=== PATIENT | male | born 1945 | race Caucasian/White ===

== ENCOUNTER → 2023-10-31 10:39 | Outpatient (REF) | payer OTHER, SELFPAY | LOC: RCS 10:39 | PROVIDERS: ATTENDING PHYSICIAN Internal Medicine; FAMILY PHYSICIAN Family Medicine | DX: Z01.810 Encounter for preprocedural cardiovascular examination (principal) | CPT/HCPCS: 93005 ==

== ENCOUNTER 2023-11-02 11:56 | Emergency (ER) | payer OTHER, SELFPAY ==
[2023-11-02 12:03] VITALS: BP 143/83
[2023-11-02 12:25] LABS: % Basophils 0.5 % (0-2); % Eosinophils 3.3 % (0-6); % Immature Granulocytes 0.3 % (0-0.5); % Lymphocytes 14.4 % (20.5-51.1); % Monocytes 10.5 % (1.7-9.3); Absolute Basophils 0.1 10^3/uL (0-0.2); Absolute Eosinophils 0.4 10^3/uL (0-0.7); Absolute Lymphocytes 1.7 10^3/uL (1.2-3.4); Absolute Monocytes 1.2 10^3/uL (0.1-0.6); Absolute Neutrophils 8.4 10^3/uL (1.4-6.5); Hematocrit 28.8 % (39.0-52.0); Hemoglobin 9.4 g/dL (13.0-18.0); Mean Corp Hgb Conc. 32.6 g/dL (33.0-37.0); Mean Corpuscular Hgb 28.9 pg (27.0-31.0); Mean Corpuscular Volume 88.6 fL (80.0-94.0); Mean Platelet Volume 9.7 fL (7.4-10.4); Nucleated Red Blood Cells % 0 % (-); Platelet Count 364 10^3/uL (130-400); Red Blood Cell Count 3.25 10^6/uL (4.70-6.10); Red Cell Dist. Width 12.9 % (11.5-14.5); White Blood Cell Count 11.8 10^3/uL (4.8-10.8)
[2023-11-02 12:34] LABS: INR 1.14; PT 14.5 Sec (11.4-14.6)
[2023-11-02 12:35] LABS: APTT 32.4 Sec (23.4-35.0)
[2023-11-02 12:45] LABS: ALT (SGPT) 15 U/L (0-50); AST (SGOT) 21 U/L (17-59); Albumin 3.5 g/dl (3.5-5.0); Alkaline Phosphatase 128 U/L (38-126); Blood Urea Nitrogen 15 mg/dl (9-20); Calcium 9.2 mg/dl (8.4-10.2); Chloride 101 mmol/L (98-107); Glucose 113 mg/dl (70-99); Potassium 4.5 mmol/L (3.5-5.1); Sodium 135 mmol/L (135-145); Total Bilirubin 0.3 mg/dl (0.2-1.3); eGFR > 60.00
[2023-11-02 12:48] LABS: Carbon Dioxide 29 mmol/L (22-30)
--- NOTE | 2023-11-02 13:11 | ED.GENMED ---
History of Present Illness
General
Chief Complaint: Abnormal Lab Value
Source: patient
Exam Limitations: none
Time Seen by Provider: 11/02/23 13:03
Travel History
Have you had any contact with someone who has COVID-19?: No
Do you have any symptoms of coronavirus? Fever > 100 degrees, chills, cough, shortness of breath, sore throat, loss of taste or smell, muscle aches, or headache?: No
History of Present Illness
History of Present Illness:
See MDM
Past History
Past History
ED Past Medical History: None and HTN
ED Past Surgical History: None
Social History
Tobacco: Non-smoker
Alcohol: None
Personal:
Phy Exam
Physical Exam
Physical Exam:
See MDM
Course
Orders/Labs/Results
Orders:
Orders
11/02/23 12:18
Complete Blood Count/With Diff Urgent
Comprehensive Metabolic Panel Urgent
PT/INR [Prothrombin Time] Urgent
PTT Urgent
11/02/23 13:10
Electrocardiogram (*1) Urgent
Reason for Study: Shortness of Breath
CT Chest Pe Study Urgent
Comment:
Reason For Exam: SOB with exertion
EKG- Treatment ONCE
11/02/23 13:27
NT-proBNP Urgent
Troponin I Urgent
Abnormal Lab Results
11/02/23
12:18
WBC 11.8 H 10^3/uL
(4.8-10.8)
RBC 3.25 L 10^6/uL
(4.70-6.10)
Hgb 9.4 L g/dL
(13.0-18.0)
Hct 28.8 L %
(39.0-52.0)
MCHC 32.6 L g/dL
(33.0-37.0)
Absolute Neuts (auto) 8.4 H 10^3/uL
(1.4-6.5)
Absolute Monos (auto) 1.2 H 10^3/uL
(0.1-0.6)
Lymphocytes % 14.4 L %
(20.5-51.1)
Monocytes % 10.5 H %
(1.7-9.3)
Glucose 113 H mg/dl
(70-99)
Alkaline Phosphatase 128 H U/L
(38-126)
11/02/23 12:18
11/02/23 12:18
Vital Signs
Initial and Last Documented VS:
Initial Vital Signs
Temp Pulse Resp BP Pulse Ox
98.0 F 88 20 143/83 98
11/02/23 12:03 11/02/23 12:03 11/02/23 12:03 11/02/23 12:03 11/02/23 12:03
Last Documented Vital Signs
Temp Pulse Resp BP Pulse Ox
98.0 F 88 20 143/83 98
11/02/23 12:03 11/02/23 12:03 11/02/23 12:03 11/02/23 12:03 11/02/23 12:03
MDM/Problems Addressed
Differential Diagnosis Includes:
HPI and MDM Narrative:
78-year-old male presenting for evaluation of shortness of breath. Patient states outpatient blood work showed an elevated D-dimer. He was sent in to rule out PE. Patient states he gets short of breath when he mows the lawn outside. He denies
chest pain. At the time of my evaluation, blood work has returned. I discussed evidence of anemia. He denies black or red stools.
Given his shortness of breath with outpatient elevated D-dimer, will obtain CT to rule out PE. Will obtain EKG and troponin and BNP
Physical exam
General: Well appearing and non-toxic
HEENT: protecting airway
Neck: appears supple
CV: No evidence of cyanosis. Regular rate and rhythm
Resp: No accessory muscle use. Lungs clear
Abd: Non-distended
Extremities: No deformities
Neuro: alert
Psych: Normal affect
Skin: Intact
Problems Addressed including Acute and Chronic Conditions affecting care:
1. Shortness of breath
Acuity: acute
Prognosis: stable
Details: Given the elevated D-dimer as an outpatient, will obtain CT rule out PE
2. Anemia
Acuity: acute
Prognosis: stable
Details: He denies black or red stools. Given the normal MCV, we discussed possible iron deficiency. Discussed having this evaluated by PCP
Updates
CT negative for PE. There is concern for metastatic disease. I did update the patient on the CT concern and he was given a printout of the CT. Patient states he has bronchoscopy soon. It appears that his outpatient team are working this up.
Patient acknowledges my concern
Differential Diagnosis (but not limited to): Pulmonary embolism, ACS, symptomatic anemia
Testing considered: Repeating D-dimer
Drug therapy (if applicable): OTC meds, please see d/c instruction regarding Rx drugs
Amount and/or Complexity of Data Reviewed
Clinical info obtained from: Patient
External data reviewed: N/A
Labs I independently reviewed (but not limited to): Anemia with normal MCV
Radiology: the CT scan was personally and independently reviewed. In addition, official CT report reviewed.
Pulse Ox: not hypoxic
EKG independently reviewed: sinus rhythm, right axis, no STEMI
Customer Care Representative: N/A
Critical Care: N/A
Risk of Complication:
Social Determinants of health: Good social support
Discussed with other providers: N/A
Escalation of Care includes Admit/Obs: After being observed in the Emergency Department, pt stable for discharge.
Occasional wrong word or 'sound a like' substitutions may have occurred due to the inherent limitations of voice recognition software. Read the chart carefully and recognize, using context, where substitutions have occurred.
*Critical Care Note
Total Time (30-74mins, 75-104mins- exclusive of procedures): Not Applicable
ED Attending Note
-
Portions of this chart may have been created with voice recognition software.� Occasional wrong word or��sound alike� substitutions may have occurred due to the inherent limitations of voice recognition software.
Discharge Plan
Departure
Patient Disposition: Home (Routine Discharge)
Date of Disposition: 11/02/23
Time of Disposition: 15:50
Patient with high blood pressure during this ER visit?: Yes
Discharge Problem:
Acute dyspnea
Instructions: BLOOD PRESSURE
Prescriptions:
No Action
atorvastatin 20 mg Tablet
20 mg PO DAILY
ropinirole 0.5 mg Tablet
0.5 mg PO HS
valsartan 320 mg Tablet
320 mg PO HS
fluticasone propion-salmeterol [Wixela Inhub] 500-50 mcg/dose Blister With Device
1 inh INHALATION R BID
Centrum Silver Tablet
1 tab PO DAILY
PreserVision AREDS 4,296 mcg-226 mg-90 mg Capsule
1 cap PO BID
Referrals:
Brian White MD [Family Provider] -
Activity Restrictions/Additional Instructions:
Please return for any worsening symptoms.
You may return at any time if you have further concerns.
Please follow up with your doctor at the first available appointment, preferably this week.
Thank you for choosing [facility].
Interventions
Interventions:
*ED COVID-19 Vaccine History Last Done: 11/02/23 12:07
Discharge Date and Time
Print Language: ICELANDIC
[2023-11-02 14:00] VITALS: BP 132/88
[2023-11-02 14:02] LABS: NT-proBNP 281 pg/ml; Troponin I < 0.012 ng/ml
[2023-11-02 16:35] VITALS: BP 132/76
== END 2023-11-02 16:36 | disposition home or self-care (01) ==
LOC: EMR 11:56
PROVIDERS: Emergency Medicine; EMERGENCY PHYSICIAN Student in an Organized Health Care Education/Training Program; FAMILY PHYSICIAN Family Medicine
DX: D64.9 Anemia, unspecified (principal); I10 Essential (primary) hypertension; R79.89 Other specified abnormal findings of blood chemistry; R91.8 Other nonspecific abnormal finding of lung field
CPT/HCPCS: 99285; 71275; 80053; 83880; 84484; 85025; 85610; 85730; 93005; Q9967

== ENCOUNTER 2023-11-05 06:30 | Day surgery (SDC) | payer OTHER, SELFPAY ==
[2023-11-05] VITALS (9 sets, daily range): BP systolic 95–137; BP diastolic 59–87; BMI 24.4
== END 2023-11-05 16:54 | disposition home or self-care (01) ==
LOC: SDS 06:30
PROVIDERS: ATTENDING PHYSICIAN Internal Medicine Critical Care Medicine
DX: R91.8 Other nonspecific abnormal finding of lung field (principal); R59.0 Localized enlarged lymph nodes; C34.2 Malignant neoplasm of middle lobe, bronchus or lung; C77.9 Secondary and unspecified malignant neoplasm of lymph node, unspecified
CPT/HCPCS: 31629; 31628; 31645; 31624; 31623; 31654; 88173; 88305; 71045; 76000; 87015; 87070; 87102; 87106; 87116; 87205; 88112; 88333; 88334; 88341; 88342

== ENCOUNTER → 2023-11-14 08:31 | Outpatient (REF) | payer OTHER, SELFPAY | LOC: PET 08:31 | PROVIDERS: ATTENDING PHYSICIAN Internal Medicine | DX: R59.9 Enlarged lymph nodes, unspecified (principal) | CPT/HCPCS: 78815; A9552 ==

== ENCOUNTER → 2023-11-27 09:18 | Outpatient (REF) | payer OTHER, SELFPAY | LOC: MRI 3T 09:18 | PROVIDERS: ATTENDING PHYSICIAN Internal Medicine Hematology & Oncology; FAMILY PHYSICIAN Family Medicine | DX: C34.2 Malignant neoplasm of middle lobe, bronchus or lung (principal); C79.89 Secondary malignant neoplasm of other specified sites | CPT/HCPCS: 70553; A9575 ==

== ENCOUNTER → 2023-12-06 07:07 | Outpatient (REF) | payer OTHER, SELFPAY ==
[2023-12-06 07:45] VITALS: BP 143/69; BP_SYST 71
[2023-12-06 09:17] VITALS: BP 132/82; BP_SYST 79
[2023-12-06 09:46] VITALS: BP 134/72
== END ==
LOC: RADI 07:07
PROVIDERS: ATTENDING PHYSICIAN Internal Medicine Hematology & Oncology; FAMILY PHYSICIAN Family Medicine
DX: C79.72 Secondary malignant neoplasm of left adrenal gland (principal); C34.2 Malignant neoplasm of middle lobe, bronchus or lung
CPT/HCPCS: 88305; 49180; 77012; 88333; 88341; 88342; 99152

== ENCOUNTER 2023-12-14 14:05 | Inpatient (IN) | payer OTHER, SELFPAY ==
[2023-12-14] VITALS (16 sets, daily range): BP systolic 127–191; BP diastolic 68–96; BMI 23.1; BMI 23.5
--- NOTE | 2023-12-14 11:12 | ED.GENMED ---
History of Present Illness
General
Chief Complaint: Abnormal Lab Value
Time Seen by Provider: 12/14/23 11:11
Travel History
Have you had any contact with someone who has COVID-19?: No
Do you have any symptoms of coronavirus? Fever > 100 degrees, chills, cough, shortness of breath, sore throat, loss of taste or smell, muscle aches, or headache?: No
History of Present Illness
History of Present Illness:
HPI: The patient was sent here for evaluation and blood transfusion given hemoglobin of 6.7 as an outpatient. The patient reports generalized weakness with some degree of shortness of breath over the last several weeks. He denies any rectal
bleeding. He has no pain.
EXAM:
GENERAL: Appears somewhat generally weak and debilitated
HEENT: Moist oral mucosa
CARDIOVASCULAR: No murmurs, normal heart rate, regular rhythm, No chest wall tenderness
PULMONARY: No respiratory distress, breath sounds are clear and equal
ABDOMEN: Soft with no peritoneal signs, no tenderness
NEUROLOGIC: Excellent strength all extremities, no coordination deficits
PSYCHIATRIC: Appropriate mental status, normal insight and judgement
EXTREMITIES: Nontender, no edema, moves all extremities equally
SKIN: Somewhat pale
TIME OF INITIAL ENCOUNTER: 11:15 AM
NUMBER AND COMPLEXITY OF PROBLEMS ADDRESSED AT THE ENCOUNTER
� Chronic conditions affecting care: Lung cancer
� Acute Exacerbation and/or Progression of Chronic Illness: This is an acute problem
� Differential Diagnosis includes: Iron deficiency anemia, GI bleed, anemia related to malignancy
AMOUNT AND/OR COMPLEXITY OF DATA TO BE REVIEWED AND ANALYZED
� I performed an independent evaluation of and my interpretation is:
EKG:
CT: As patient had a recent adrenal biopsy, with drop in hemoglobin, CT imaging was obtained to evaluate for retroperitoneal hemorrhage�I see no evidence for RP hemorrhage
X-rays:
Laboratory Studies: Hemoglobin 6.4, white count 12.4, iron low
Other:
� Review of other/old records: 1 month ago, the patient had a hemoglobin of 9.4, 11 years ago, the hemoglobin was 15.2
� Clinical information was obtained by an independent historian: None needed
� Prescriptions/Medications Considered but not given:
� Further testing considered but not performed:
RISK OF COMPLICATIONS AND/OR MORBIDITY OR MORTALITY OF PATIENT MANAGEMENT
� Social determinants of health affecting care: Lives at home
� Discussion with other providers: Hospitalist for admission; I spoke to Vilma Moss who also notes that the patient had a recent adrenal biopsy.
� Escalation of care including admission/observation vs risk of discharge considered: The patient has heme positive brown stool. He was not aware of any gross bleeding. Planning blood transfusion and admission to the hospital.
Past History
Past History
ED Past Medical History: None and HTN
ED Past Surgical History: None
Social History
Tobacco: Non-smoker
Alcohol: None
Personal:
Phy Exam
Physical Exam
Physical Exam:
See HPI
Course
Orders/Labs/Results
Orders:
Orders
12/14/23 11:25
Type+Screen Urgent
Complete Blood Count/With Diff Urgent
Comprehensive Metabolic Panel Urgent
Ferritin Urgent
Iron Urgent
TIBC [Total Iron Binding] Urgent
12/14/23 12:31
Add On- LAB Urgent
Tests Added?: cmp
Pantoprazole [Protonix IV] 80 mg IV NOW STA
12/14/23 12:32
* Blood Bank Products Urgent
Blood Bank Products: *Packed RBC Leuko(PRBC's)
Quantity: 2
Transfuse Today: Yes
Reason: Anemia
12/14/23 13:42
Admit/Transfer Patient As Directed
Co-Sign Provider:
Level of Care: Inpatient admission
Assign to:: Telemetry
Physician / Group: Kadeem
Diagnosis: Symptomatic anemia, GI bleed
Reason for Telemetry: Arrhythmia
Date to Stop Telemetry: 12/17/23
Time to Stop Telemetry: 11:00
Reason for Hospitalization: blood transfusion, GI bleed
Expected length of stay greater than two midnights?: Yes
ELOS- Estimated Length of Stay in days: 3
I certify the patient meets the requirements for IP care: Yes
12/14/23 13:45
Code Status As Directed
Resuscitation Status: Do not resuscitate
Reached after discussion with pt or family/Healthcare POA: Yes
12/14/23 13:46
DNR Bracelet Application ONCE
12/17/23 11:00
DC Protocol for Telemetry ONCE
Abnormal Lab Results
12/14/23
11:25
WBC 12.4 H 10^3/uL
(4.8-10.8)
RBC 2.40 L 10^6/uL
(4.70-6.10)
Hgb 6.4 L* g/dL
(13.0-18.0)
Hct 19.8 L* %
(39.0-52.0)
MCH 26.7 L pg
(27.0-31.0)
MCHC 32.3 L g/dL
(33.0-37.0)
RDW 14.9 H %
(11.5-14.5)
Plt Count 530 H 10^3/uL
(130-400)
Abs Immat Gran (auto) 0.1 H 10^3/uL
(0-0.05)
Absolute Neuts (auto) 10.5 H 10^3/uL
(1.4-6.5)
Absolute Lymphs (auto) 0.9 L 10^3/uL
(1.2-3.4)
Absolute Monos (auto) 0.9 H 10^3/uL
(0.1-0.6)
Neutrophils % 84.7 H %
(42.2-75.2)
Lymphocytes % 7.0 L %
(20.5-51.1)
Sodium 133 L mmol/L
(135-145)
BUN 21 H mg/dl
(9-20)
Glucose 119 H mg/dl
(70-99)
Iron 22 L ug/dl
(49-181)
TIBC 241 L ug/dl
(261-462)
% Saturation 9 L %
(20-50)
Alkaline Phosphatase 141 H U/L
(38-126)
Albumin 3.2 L g/dl
(3.5-5.0)
Crossmatch IS Only See Detail
12/14/23 11:25
12/14/23 11:25
Vital Signs
Initial and Last Documented VS:
Initial Vital Signs
Temp Pulse Resp BP Pulse Ox
98.1 F 84 22 160/82 100
12/14/23 10:52 12/14/23 10:52 12/14/23 10:52 12/14/23 10:52 12/14/23 10:52
Last Documented Vital Signs
Temp Pulse Resp BP Pulse Ox
98.0 F 74 20 154/86 96
12/14/23 15:09 12/14/23 15:09 12/14/23 15:09 12/14/23 15:09 12/14/23 14:30
*Critical Care Note
Total Time (30-74mins, 75-104mins- exclusive of procedures): Not Applicable
ED Attending Note
-
Portions of this chart may have been created with voice recognition software.� Occasional wrong word or��sound alike� substitutions may have occurred due to the inherent limitations of voice recognition software.
Discharge Plan
Departure
Patient Disposition: Admit
Date of Disposition: 12/14/23
Time of Disposition: 12:43
Presentation/result/management discussed w/ accepting MD/DO: Hospitalist
Discharge Problem:
Symptomatic anemia
Interventions
Interventions:
*Risk Screen - Suicide Last Done: 12/14/23 11:28
ED- Fall Risk Assessment Last Done: 12/14/23 11:28
*ED COVID-19 Vaccine History Last Done: 12/14/23 10:55
[2023-12-14 11:41] LABS: % Basophils 0.3 % (0-2); % Eosinophils 0.6 % (0-6); % Immature Granulocytes 0.4 % (0-0.5); % Neutrophils 84.7 % (42.2-75.2); Absolute Eosinophils 0.1 10^3/uL (0-0.7); Absolute Immature Granulocytes 0.1 10^3/uL (0-0.05); Absolute Lymphocytes 0.9 10^3/uL (1.2-3.4); Absolute Monocytes 0.9 10^3/uL (0.1-0.6); Absolute Neutrophils 10.5 10^3/uL (1.4-6.5); Mean Corp Hgb Conc. 32.3 g/dL (33.0-37.0); Mean Corpuscular Hgb 26.7 pg (27.0-31.0); Mean Corpuscular Volume 82.5 fL (80.0-94.0); Mean Platelet Volume 9.2 fL (7.4-10.4); Nucleated Red Blood Cells % 0 % (-); Platelet Count 530 10^3/uL (130-400); Red Cell Dist. Width 14.9 % (11.5-14.5); White Blood Cell Count 12.4 10^3/uL (4.8-10.8)
[2023-12-14 12:00] LABS: Hematocrit 19.8 % (39.0-52.0); Hemoglobin 6.4 g/dL (13.0-18.0)
[2023-12-14 12:01] LABS: Iron 22 ug/dl (49-181)
[2023-12-14 12:10] LABS: Percent Saturation 9 % (20-50); Total Iron Binding Capacity 241 ug/dl (261-462)
[2023-12-14] MEDS: PROTONIX IV 80 MG IV (12:57)
--- NOTE | 2023-12-14 13:50 | HPS.HSE ---
Addendum entered and electronically signed by Fito Quan DO 12/14/23 14:16:
Patient changed his mind and wants to be a full code. Order changed.
Original Note:
Family Physician
-
Family Physician: Brian White
Chief Complaint
-
Anemia
History of Present Illness
78-year-old male referred to the hospital for evaluation of anemia. Complaining of fatigue and sleeping a lot. Denies shortness of breath or dyspnea on exertion.
Limited historian.
Recent diagnosis of pulmonary adenocarcinoma. Has yet to start treatment. Followed by [facility].
Medical History
Past Medical History
Past Medical History: Reports Other
Additional Past Medical History:
Essential hypertension
COPD
GERD
Restless leg syndrome
Pulmonary adenocarcinoma
Left adrenal metastasis
Past Surgical History: Reports None
Social History
Tobacco: Former Smoker
Alcohol: None
Drug: None
Personal:
Living: With Family
Family History
Family History: Not pertinent
Allergies / Home Medications
Allergies reflects when Allergies were last updated in [facility].
Home Medications with original date entered in [facility]
Allergy/Medication List:
Allergies
Allergy/AdvReac Type Severity Reaction Status Date / Time
No Known Allergies Allergy Verified 12/14/23 10:57
Home Medications
atorvastatin 20 mg tablet 20 mg PO DAILY 11/02/23
ropinirole 0.5 mg tablet 0.5 mg PO DAILY@199911/02/23
valsartan 320 mg tablet 320 mg PO DAILY 11/02/23
acetaminophen 325 mg tablet (Tylenol) 650 mg PO Q4H PRN pain 11/05/23
benzonatate 200 mg capsule 200 mg PO BID PRN cough 12/06/23
oxycodone 5 mg tablet 5 mg PO BID PRN severe pain 12/06/23
albuterol sulfate 90 mcg/actuation aerosol inhaler 2 puff inhalation Q4HPRN PRN shortness of breath 12/14/23
dextromethorphan-guaifenesin 10 mg-100 mg/5 mL oral syrup 10 ml PO HS 12/14/23
fluticasone 500 mcg-salmeterol 50 mcg/dose blistr powdr for inhalation (Wixela Inhub) 1 ea inhalation BID 12/14/23
folic acid 1 mg tablet 1 mg PO DAILY 12/14/23
prochlorperazine maleate 10 mg tablet 10 mg PO Q6HPRN PRN nausea 12/14/23
vit C 250 mg-vit E 90 mg-zinc 40 mg-copper 1 [id number] capsule (PreserVision AREDS-2) 1 tab PO BID 12/14/23
Review of Systems
-
History Source: Patient
A 12 point ROS was completed and negative except as noted: Yes
Physical Exam
Vital Signs
Vital Signs
Temp Pulse Resp BP Pulse Ox
98.1 F 76 18 153/86 99
12/14/23 10:52 12/14/23 13:00 12/14/23 13:00 12/14/23 13:00 12/14/23 13:00
Physical Exam
General: Well Developed, Well Nourished, No Apparent Distress and Comfortable
HEENT: NormoCephalic, Anicteric and Moist mucous membranes
Respiratory: Clear
Cardiac: S1/S2 and Regular Rhythm
GI: Soft, Non Tender and Non Distended
Musculoskeletal: No Clubbing, No Cyanosis and No Edema
Skin: Warm and Dry
Neuro: AO x 3
Hematologic/Lymphatic: No Lymphadenopathy
Psych: Calm
Laboratory Results
-
12/14/23 11:25
Impression/Plan
-
Symptomatic anemia -acute to subacute blood loss anemia likely source. Hemoglobin 6.4. MCV normal. 2 units of blood for transfusion ordered by emergency room. Hemodynamically stable. Admit to telemetry.
Ferritin normal, serum iron and TIBC low. Check B12, folic acid, reticulocyte count.
GI bleed -likely subacute. Heme positive stool noted in the emergency room. Consult GI. Continue IV Protonix drip for now. Patient denies history of NSAIDs. Patient has never had EGD or colonoscopy. He is very concerned about post colonoscopy
bleeding given his experiences with friends and relatives. I tried to explain to him the low risk of bleeding involved and the safety. So far he is only done Cologuard screenings, last screen was 2 years ago.
Pulmonary adenocarcinoma -left adrenal metastasis noted. Scheduled for chemotherapy port insertion on Sunday. Has yet to start treatment.
Essential hypertension -resume valsartan.
COPD without exacerbation -stable. Continue inhalers.
Hyperlipidemia -on atorvastatin.
GERD
Restless leg syndrome
DNR -confirmed with patient.
[2023-12-14 13:59] LABS: ALT (SGPT) 14 U/L (0-50); AST (SGOT) 25 U/L (17-59); Albumin 3.2 g/dl (3.5-5.0); Alkaline Phosphatase 141 U/L (38-126); Blood Urea Nitrogen 21 mg/dl (9-20); Calcium 9.4 mg/dl (8.4-10.2); Carbon Dioxide 23 mmol/L (22-30); Chloride 102 mmol/L (98-107); Estimated Creatinine Clearance 68 ml/min; Glucose 119 mg/dl (70-99); Potassium 4.8 mmol/L (3.5-5.1); Sodium 133 mmol/L (135-145); Total Bilirubin 0.4 mg/dl (0.2-1.3); Total Protein 6.6 g/dl (6.3-8.2); eGFR > 60.00
--- NOTE | 2023-12-14 15:02 | CON.GI ---
Addendum entered and electronically signed by Daniel Chamorro MD 12/14/23 16:40:
Patient seen and examined, agree with nurse practitioner note. Patient presents with symptomatic anemia, with BUCIO and fatigue. He has recent diagnosis of metastatic lung cancer, and found to have hemoglobin 6.7 outpatient labs done 9 days ago
which was significantly lower than October. On presentation emergency room his hemoglobin was essentially stable at 6.4, and he does has dyspnea exertion and fatigue. He did have some nausea after taking some medication this morning but usually has
no GI symptoms, and denies any melena or hematochezia, change in bowel habits or abdominal pain. He had a biopsy of a very large adrenal met that was around 9 cm on PET/CT. His PET/CT done this month showed no GI pathology. He never had a
colonoscopy has had -2 Cologuard's, last about 2 years ago. Currently is feeling okay, improved after transfusion. On exam he has no significant abdominal tenderness. His iron studies are mixed, with low percent iron saturation. The etiology of
his drop is unclear, could have had some bleeding within the large adrenal mass which is now about a centimeter larger. We discussed the role of endoscopic evaluation at length, including therapeutically for controlling active bleeding and
diagnostically to look for GI pathology, especially malignancy. We discussed that since he has no active bleeding, no gross bleeding, brown stool with stable hemoglobin over the past 7 days, and recent PET/CT without evidence of GI malignancy, will
hold on endoscopic evaluation for now. I discussed also with Dr. Salter from oncology who concurs. It has been observed overnight to get watch for signs of active bleeding, see if he responds to transfusion, though if stable and no gross
bleeding again would hold on endoscopic evaluation and continue supportive care.
Original Note:
Consultation
-
Date/Time Consultation Requested: 12/14/23 1400
Date/Time Consultation Performed: 12/14/23 1400
Requesting Provider: Dr. Quan
Performing Provider: Dr. Chamorro/PATRICIA Giordano
Reason for Consultation: OB positive stool, anemia
Medical History
Chief Complaint / HPI
Chief Complaint: fatigue
History of Present Illness:
78-year-old male with past medical history of chronic cough, COPD, hypertension, GERD, restless leg syndrome with recent diagnosis of metastatic adenocarcinoma of the lung status post bronchoscopy 11/05/2023 as well as recent left adrenal mass biopsy
on 12/06/2023 who presents to the emergency room with progressive fatigue and shortness of breath. The patient was called and told he had a low hemoglobin and was advised to come to the emergency department. His stool was noted to be brown but OB
positive. We are asked to evaluate for the same. Patient's last hemoglobin in October was 9.4 this was apparently repeated as an outpatient and was 6.7 nine days ago. The patient was notified of this today. When he presented to the emergency room
his hemoglobin is 6.4. He does have a history of gastroesophageal reflux disease and was on omeprazole approximately a few years ago however approximately 1 year ago he states that his symptoms resolved on their own and he no longer needed PPI
therapy. He states on rare occasion he will have an instance of reflux and this will go away with Tums. The patient states that over the past month he has lost approximately 12 pounds. This is despite 'eating like a horse'. He did get started on
oxycodone for left shoulder pain within the past week. He did develop nausea and was prescribed prochlorperazine that he took his first pill this morning. He did have 1 episode of vomiting this morning that was clear. No signs of coffee-ground or
blood. He states he has had Cologuard's performed in the past his last one was 2 years ago which was normal and the other was 2 years prior to that that was also normal. He has no family history of gastrointestinal malignancy that he is aware of.
He has a sister that of cancer of an unknown type. The patient has never had an endoscopy or colonoscopy before. He quit smoking approximately 5 years ago. He quit drinking alcohol approximately 10 years ago. Prior to that he would
drink approximately 2-3 beers a week. He does not use any NSAIDs or aspirin. He denies any fevers, chills, melena, hematochezia, dysphagia or odynophagia. No early satiety, thinning of the stools change or change in stool caliber. Currently WBC
count 12.4, hemoglobin 6.4, hematocrit 19.8, MCV 82.5, MCH 26.7, platelets 530, sodium 133, potassium 4.8, chloride 102, CO2 23, BUN 21, creatinine 0.9, glucose 119, iron 22, TIBC 241, percent saturation 9, ferritin 382, total bilirubin 0.4, AST 25,
ALT 14, alk phos 141, albumin 3.2.
Past Medical History
Past Medical History: Cancer (Metastatic adenocarcinoma lung), COPD, GERD, HTN, Hypercholesterolemia and Other (RLS)
Past Surgical History: Other (Bronchoscopy 11/05/2023, left adrenal mass biopsy 12/06/2023, left hernia)
Social History
Tobacco: Former Smoker (Quit 5 years ago)
Alcohol: Other (None in 10 years, prior 2-3 beers a week)
Drug: None
Personal:
Living: With Family
Employment: Retired
Family History
Family History: Other (No family history of gastrointestinal malignancy or IBD.)
Allergies / Home Medications
Allergy/AdvReac Type Severity Reaction Status Date / Time
No Known Allergies Allergy Verified 12/14/23 10:57
�Medication �Instructions �Recorded
atorvastatin 20 mg tablet 20 mg PO DAILY 11/02/23
ropinirole 0.5 mg tablet 0.5 mg PO DAILY@199911/02/23
valsartan 320 mg tablet 320 mg PO DAILY 11/02/23
acetaminophen 325 mg tablet 650 mg PO Q4H PRN pain 11/05/23
(Tylenol)
benzonatate 200 mg capsule 200 mg PO BID PRN cough 12/06/23
oxycodone 5 mg tablet 5 mg PO BID PRN severe pain 12/06/23
albuterol sulfate 90 mcg/actuation 2 puff inhalation Q4HPRN PRN 12/14/23
aerosol inhaler shortness of breath
dextromethorphan-guaifenesin 10 10 ml PO HS 12/14/23
mg-100 mg/5 mL oral syrup
fluticasone 500 mcg-salmeterol 50 1 ea inhalation BID 12/14/23
mcg/dose blistr powdr for
inhalation (Wixela Inhub)
folic acid 1 mg tablet 1 mg PO DAILY 12/14/23
prochlorperazine maleate 10 mg 10 mg PO Q6HPRN PRN nausea 12/14/23
tablet
vit C 250 mg-vit E 90 mg-zinc 40 1 tab PO BID 12/14/23
mg-copper 1 [id number]
capsule (PreserVision AREDS-2)
Review of Systems
-
All other systems: A 12 pt ROS was Negative except as stated above in HPI
Vital Signs
Temp Pulse Resp BP Pulse Ox
98.1 F 76 25 167/81 96
12/14/23 14:27 12/14/23 14:30 12/14/23 14:30 12/14/23 14:30 12/14/23 14:30
Physical Exam
Exam
General: No Apparent Distress
HEENT: Anicteric and Other (Rhinophyma)
Respiratory: Clear and Other (Intermittent cough)
Cardiac: Regular Rhythm
GI: Soft, Non Tender, Non Distended and Normal Bowel Sounds
Rectal: Brown (Occult blood positive stool per ER)
Musculoskeletal: No Edema
Skin: Warm and Dry
Neuro: AO x 3
Psych: Calm
Results
WBC 12.4 10^3/uL (4.8-10.8) H 12/14/23 11:25
Hgb 6.4 g/dL (13.0-18.0) L* 12/14/23 11:25
Hct 19.8 % (39.0-52.0) L* 12/14/23 11:25
MCV 82.5 fL (80.0-94.0) 12/14/23 11:25
Plt Count 530 10^3/uL (130-400) H 12/14/23 11:25
Absolute Neuts (auto) 10.5 10^3/uL (1.4-6.5) H 12/14/23 11:25
Sodium 133 mmol/L (135-145) L 12/14/23 11:25
Potassium 4.8 mmol/L (3.5-5.1) 12/14/23 11:25
Chloride 102 mmol/L (98-107) 12/14/23 11:25
Carbon Dioxide 23 mmol/L (22-30) 12/14/23 11:25
BUN 21 mg/dl (9-20) H 12/14/23 11:25
Creatinine 0.9 mg/dL (0.7-1.3) 12/14/23 11:25
Calcium 9.4 mg/dl (8.4-10.2) 12/14/23 11:25
Total Bilirubin 0.4 mg/dl (0.2-1.3) 12/14/23 11:25
AST 25 U/L (17-59) 12/14/23 11:25
ALT 14 U/L (0-50) 12/14/23 11:25
Alkaline Phosphatase 141 U/L (38-126) H 12/14/23 11:25
Diagnostic Image Results:
12/06/2023 CT-guided left adrenal mass biopsy:IMPRESSION: Successful CT guided left adrenal mass biopsy
PET, tumor imaging skull�mid thigh 11/14/2023:
IMPRESSION:
1. LARGE 8.2 cm RIGHT MIDDLE LOBE LUNG CANCER extending posteriorly into the right hilum and superiorly through the right minor fissure into the right upper lobe.
2. Large amount of metastatic right hilar and mediastinal lymphadenopathy.
3. LARGE 9.2 cm LEFT ADRENAL METASTASIS.
CT chest 11/02/2023:
IMPRESSION:
1. Evaluation of subsegmental pulmonary distribution limited as above. No pulmonary embolus is identified.
2. Large malignant mass lesion within the right middle lobe as seen on recent prior exam. Associated right hilar lymphadenopathy and mediastinal lymphadenopathy.
3. Large left upper quadrant mass lesion, most likely adrenal metastasis.
4. Hepatic cysts and indeterminate low-attenuation hepatic lesions. This could be further evaluated with follow-up abdominal CT or MRI with contrast.
Prior GI Procedures:
EGD: Never had
Colonoscopy: Never had.
Per patient has had 2 prior negative Cologuard. Last one 2 years ago.
Assessment / Plan
-
78-year-old male with past medical history of chronic cough, COPD, hypertension, GERD, restless leg syndrome with recent diagnosis of metastatic adenocarcinoma of the lung status post bronchoscopy 11/05/2023 as well as recent left adrenal mass biopsy
on 12/06/2023 who presents to the emergency room with progressive fatigue and shortness of breath. The patient was called and told he had a low hemoglobin and was advised to come to the emergency department. His stool was noted to be brown but OB
positive. We are asked to evaluate for the same. Patient's last hemoglobin in October was 9.4 this was apparently repeated as an outpatient and was 6.7 nine days ago. The patient was notified of this today. When he presented to the emergency room
his hemoglobin is 6.4. He did have an episode of nausea and vomiting this morning that was clear. He was started on oxycodone in the past few days for of left shoulder pain. He also was given prochlorperazine and he took 1 pill of this. He has
lost approximately 12 pounds within the past month despite having a hearty appetite. He has not started any chemotherapy and is yet to have his port placed. The patient has never had an endoscopy or colonoscopy before. He has had 2 negative
Cologuard in the past with the last one being 2 years ago. He is currently receiving his first unit of packed red blood cells.
Impression:
Symptomatic anemia-> hemoglobin was 6.7 as outpatient nine days ago, now 6.4. Prior was 9.4 on 11/02/2023.
OB positive brown stool
Metastatic adenocarcinoma lung-> status post bronchoscopy 11/05/2023
Left adrenal mass s/p biopsy 12/06/2023
Single episode nausea and vomiting this a.m.-> clear fluid, however with slightly elevated BUN (21)
Plan:
-Continue Protonix
-Transfuse as ordered and trend CBC after
-Patient confirmed with me that he wishes to be full code.RN is notifying IM Attending.
-Discussed with ER physician, recent left adrenal biopsy he is ordering CT of abdomen and pelvis. Await those results.
-Eventual endoscopy/colonoscopy. Patient has port insertion planned for Sunday, yet to start chemotherapy.
-Okay for solid diet today for now, patient is hungry.
-Further recommendations to be forthcoming.
Data Reviewed
-
Radiology: Report Reviewed by me
CT Scan: Report Reviewed by me
Old Records: Reviewed
-
-
Thank you for consultation and allowing me to participate in the patient's care. Please call the [facility] GI physician during the after hours with any questions or concerns.
[2023-12-14] MEDS: PROTONIX 100 IV (16:35)
[2023-12-14] MEDS: DIOVAN 320 MG PO (16:56)
[2023-12-14] MEDS: ProAIR HFA INHALER 2 PUFF INH (17:09)
[2023-12-14] MEDS: OCUVITE SOFTGEL 1 CAP PO (20:06)
[2023-12-14] MEDS: REQUIP 0.5 MG PO (20:06)
[2023-12-14] MEDS: ADVAIR HFA 230/21 MCG INHALER 2 PUFF INH (20:32)
[2023-12-14] MEDS: ROBITUSSIN DM 10 ML PO (21:19)
[2023-12-15 00:28] LABS: Hematocrit 22.7 % (39.0-52.0); Hemoglobin 7.6 g/dL (13.0-18.0)
[2023-12-15] MEDS: PROTONIX 100 IV (01:46)
[2023-12-15] MEDS: ROXICODONE 5 MG PO ×3 (01:47→15:42)
[2023-12-15 04:15] VITALS: BP 152/80
[2023-12-15 07:15] LABS: % Basophils 0.3 % (0-2); % Eosinophils 0.7 % (0-6); % Immature Granulocytes 1.3 % (0-0.5); % Lymphocytes 13.3 % (20.5-51.1); % Monocytes 10.9 % (1.7-9.3); % Neutrophils 73.5 % (42.2-75.2); Absolute Eosinophils 0.1 10^3/uL (0-0.7); Absolute Immature Granulocytes 0.2 10^3/uL (0-0.05); Absolute Lymphocytes 1.6 10^3/uL (1.2-3.4); Absolute Monocytes 1.3 10^3/uL (0.1-0.6); Absolute Neutrophils 8.7 10^3/uL (1.4-6.5); Hemoglobin 7.6 g/dL (13.0-18.0); Mean Corpuscular Hgb 27.2 pg (27.0-31.0); Mean Corpuscular Volume 82.4 fL (80.0-94.0); Mean Platelet Volume 9.6 fL (7.4-10.4); Nucleated Red Blood Cells % 0 % (-); Platelet Count 479 10^3/uL (130-400); Red Blood Cell Count 2.79 10^6/uL (4.70-6.10); Red Cell Dist. Width 14.7 % (11.5-14.5); White Blood Cell Count 11.9 10^3/uL (4.8-10.8)
[2023-12-15] MEDS: ADVAIR HFA 230/21 MCG INHALER 2 PUFF INH (07:24)
[2023-12-15 08:10] VITALS: BP 150/76
[2023-12-15] MEDS: DIOVAN 320 MG PO (08:21)
[2023-12-15] MEDS: OCUVITE SOFTGEL 1 CAP PO (08:21)
[2023-12-15] MEDS: FOLVITE 1 MG PO (08:21)
[2023-12-15] MEDS: LIPITOR 20 MG PO (08:21)
--- NOTE | 2023-12-15 09:57 | W.PN.GI.CBS2 ---
Today's Communication / Plan
-
Please see assessment and plan for details.
Assessment / Plan
-
1. Anemia: Multifactorial, possibly some drop after his biopsy, with heme positive stool that was brown, no gross bleeding, PET/CT negative for GI malignancies. Again, had discussion with him in oncology yesterday, will hold on endoscopy and
colonoscopy for now as would not be helpful diagnostically or therapeutically in the absence of significant gross bleeding and negative PET/CT. We will sign off for now, please go back with any further questions.
Subjective
Subjective
Date of Service: December 15, 2023
Patient doing well overall, no bowel movements, tolerating diet without difficulty, no fever or chills. Has more energy after blood transfusion. Hemoglobin has remained stable overnight.
Objective
Data Reviewed
Laboratory Data:
Laboratory Results
12/15/23 06:40
12/14/23 11:25
Laboratory Results
Total Bilirubin 0.4 mg/dl (0.2-1.3) 12/14/23 11:25
AST 25 U/L (17-59) 12/14/23 11:25
ALT 14 U/L (0-50) 12/14/23 11:25
Alkaline Phosphatase 141 U/L (38-126) H 12/14/23 11:25
Vital Signs and I&O:
Vital Signs
Temp Pulse Resp BP Pulse Ox
98.0 F 82 16 150/76 95
12/15/23 08:10 12/15/23 08:10 12/15/23 08:10 12/15/23 08:21 12/15/23 08:10
I&O
12/14/23 12/15/23 12/16/23
06:59 06:59 06:59
Intake Total 980 / 980
Output Total 225 / 225
Balance 755 / 755
Physical Exam
Physical Exam
General: NAD
Abdomen: normal bowel sounds, soft, no tenderness, no masses or bruits, no ascites
--- NOTE | 2023-12-15 10:14 | W.PN.HOSP.TC ---
Today's Communication/Plan
-
Transfuse
Discharge
Assessment / Plan
Assessment / Plan
Gen-AAOx3, NAD
HEENT-NC, AT, anicteric, clear oral mm
Neck-supple
CV-reg, no M, +S1/S2
Lungs-clear B/L
Abd-soft, NT, ND
Ext-no edema
Musculoskeletal-no cyanosis, clubbing
Skin-warm and dry
Neuro-grossly non-focal
Psych-calm, cooperative
Symptomatic anemia -acute to subacute blood loss anemia likely source. GI service feels that the anemia is multifactorial etiology. CT abdomen and pelvis does not show any evidence of bleeding. Hemoglobin 6.4 on admission, 7.6 today after 2 units
transfused. Will transfuse 1 additional unit of blood, then discharge.
GI bleed -likely subacute. Heme positive stool noted in the emergency room. No melena or hematochezia. No bowel movement so far in the hospital. Appreciate GI input. Recommend conservative management. No plans for endoscopic evaluation while
in the hospital.
Hyponatremia -present on admission.
Pulmonary adenocarcinoma -left adrenal metastasis noted. Scheduled for chemotherapy port insertion on Sunday. Has yet to start treatment.
Essential hypertension -resume valsartan.
COPD without exacerbation -stable. Continue inhalers.
Hyperlipidemia -on atorvastatin.
GERD
Restless leg syndrome
Full code
Dispo -plan to discharge later today after transfusion. Follow-up with PCP and oncology.
35 minutes spent in discharge process.
Anticipated Discharge: Today
Subjective/Interval History
-
Date of Service: December 15, 2023
Patient seen and examined. No complaints.
Objective Data
-
Labs:
Laboratory Results
12/15/23 12/15/23
00:09 06:40
WBC 11.9 H
Hgb 7.6 L 7.6 L
Hct 22.7 L 23.0 L
Plt Count 479 H
Vital Signs:
Vital Signs
Temp Pulse Resp BP Pulse Ox
98.0 F 82 16 150/76 95
12/15/23 08:10 12/15/23 08:10 12/15/23 08:10 12/15/23 08:21 12/15/23 08:10
I&O
12/14/23 12/15/23 12/16/23
06:59 06:59 06:59
Intake Total 980 / 980
Output Total 225 / 225
Balance 755 / 755
Review of Systems
-
History Source: Patient
All other systems: Reviewed and negative
[2023-12-15 10:47] VITALS: BP 156/78
[2023-12-15 12:46] VITALS: BP 125/67
[2023-12-15 13:09] VITALS: BP 129/70
[2023-12-15 15:37] VITALS: BP 149/72
--- NOTE | 2023-12-15 16:51 | W.DS.TRANS ---
DC Summary - Administrative Underwriter
-
Discharge Instructions:
Discharge Diagnosis/Procedures Symptomatic anemia
Diet Regular
Activity As tolerated
Driving Restrictions As prior to admission
Bathing Restrictions None
Blood Work CBC in 1 week with your oncologist
Instructions:
Stand-Alone Forms:
Changes to Home Medications: No
Discharge Medications:
DC Medications w/original date entered in [email or web address]
atorvastatin 20 mg tablet 20 mg PO DAILY High Cholesterol 11/02/23
ropinirole 0.5 mg tablet 0.5 mg PO DAILY@1999 Restless Leg Syndrome 11/02/23
valsartan 320 mg tablet 320 mg PO DAILY Blood Pressure 11/02/23
acetaminophen 325 mg tablet (Tylenol) 650 mg PO Q4H PRN pain 11/05/23
benzonatate 200 mg capsule 200 mg PO BID PRN cough 12/06/23
oxycodone 5 mg tablet 5 mg PO BID PRN severe pain 12/06/23
albuterol sulfate 90 mcg/actuation aerosol inhaler 2 puff inhalation Q4HPRN PRN shortness of breath 12/14/23
dextromethorphan-guaifenesin 10 mg-100 mg/5 mL oral syrup 10 ml PO HS Cough 12/14/23
fluticasone 500 mcg-salmeterol 50 mcg/dose blistr powdr for inhalation (Wixela Inhub) 1 ea inhalation BID Lung/Breathing Issues 12/14/23
folic acid 1 mg tablet 1 mg PO DAILY Supplement 12/14/23
prochlorperazine maleate 10 mg tablet 10 mg PO Q6HPRN PRN nausea 12/14/23
vit C 250 mg-vit E 90 mg-zinc 40 mg-copper 1 [id number] capsule (PreserVision AREDS-2) 1 tab PO BID Supplement 12/14/23
Home Medication Changes
Pending Results: No
== END 2023-12-15 17:10 | disposition home or self-care (01) | DRG 378 ==
LOC: 4 WEST ACU 14:05
PROVIDERS: Nurse Practitioner Gerontology; ADMITTING PHYSICIAN Hospitalist; CONSULT PHYSICIAN Internal Medicine Gastroenterology; EMERGENCY PHYSICIAN Emergency Medicine; FAMILY PHYSICIAN Family Medicine
PROC: 30233N1 Transfusion of Nonautologous Red Blood Cells into Peripheral Vein, Percutaneous Approach (ICD-10-PCS; 2023-12-14)
DX: K92.2 Gastrointestinal hemorrhage, unspecified (principal); C79.72 Secondary malignant neoplasm of left adrenal gland; E87.1 Hypo-osmolality and hyponatremia; Z66 Do not resuscitate; Z87.891 Personal history of nicotine dependence; D50.0 Iron deficiency anemia secondary to blood loss (chronic); I10 Essential (primary) hypertension; J44.9 Chronic obstructive pulmonary disease, unspecified; K21.9 Gastro-esophageal reflux disease without esophagitis; G25.81 Restless legs syndrome; E78.00 Pure hypercholesterolemia, unspecified
CPT/HCPCS: 36430; 74177; 80053; 82728; 83540; 83550; 85014; 85018; 85025; 86850; 86900; 86901; 86920; 94640; 96374; 99285; P9016; Q9967

== ENCOUNTER 2023-12-17 10:15 | Emergency (ER) | payer OTHER, SELFPAY ==
[2023-12-17 10:26] VITALS: BP 157/91
[2023-12-17 16:00] VITALS: BP 172/92
--- NOTE | 2023-12-17 19:00 | ED.GENMED ---
History of Present Illness
General
Chief Complaint: Fatigue
Time Seen by Provider: 12/17/23 17:55
Travel History
Have you had any contact with someone who has COVID-19?: No
Do you have any symptoms of coronavirus? Fever > 100 degrees, chills, cough, shortness of breath, sore throat, loss of taste or smell, muscle aches, or headache?: No
History of Present Illness
History of Present Illness:
78-year-old male with history of lung CA and anemia presenting to the emergency department for weakness and dark stools. Patient reports symptoms for the past week. Notes that he was recently seen and evaluated on 12/13, admitted for symptomatic
anemia with hemoglobin of 6.4, improved to 7.6 after 3 units. At the time, was told that he did have some blood in his stool, was told to follow-up outpatient. Reports that he was discharged 3 days ago. He notes worsening weakness, as well as a
nonproductive cough, which has been ongoing for months. He feels that his stools have gotten darker in color. Denies any iron usage. Denies any chest pain or difficulty breathing. Reports that he was supposed to have a port placed today to
initiate chemotherapy, however canceled secondary to his symptoms. Denies additional acute medical
Past History
Past History
ED Past Medical History: None and HTN
ED Past Surgical History: None
Social History
Tobacco: Non-smoker
Alcohol: None
Personal:
Phy Exam
Physical Exam
Physical Exam:
GENERAL: Alert , in no apparent distress
EYE: pupils equal and reactive
NECK: Supple, no significant adenopathy.
ENT: o/p clr, mmm.
CARDIAC: Regular rate and rhythm .
LUNGS: Clear breath sounds bilaterally, no acute respiratory distress, no wheezes/rales/rhonchi
ABDOMEN: Soft, without focal tenderness, no r/g, no cvat
NEUROLOGICAL: Alert and oriented, no focal neuro deficits
SKIN: Warm and dry, skin intact.
: Hemoccult positive brown stool
MUSCULOSKELETAL: No edema, well perfused.
PSYCH: Normal and appropriate interaction.
Course
Orders/Labs/Results
Orders:
Orders
12/17/23 18:33
CR Chest - 2 Views Urgent
Comment:
Reason For Exam: cough
12/17/23 19:19
Type And Crossmatch Urgent
Complete Blood Count/With Diff Urgent
Comprehensive Metabolic Panel Urgent
Prothrombin Time Urgent
12/17/23 20:52
Doxycycline [Vibramycin] 100 mg PO NOW STA
Abnormal Lab Results
12/17/23
19:19
WBC 15.5 H 10^3/uL
(4.8-10.8)
RBC 3.56 L 10^6/uL
(4.70-6.10)
Hgb 9.8 L D g/dL
(13.0-18.0)
Hct 29.7 L %
(39.0-52.0)
RDW 15.6 H %
(11.5-14.5)
Plt Count 535 H 10^3/uL
(130-400)
Abs Immat Gran (auto) 0.1 H 10^3/uL
(0-0.05)
Absolute Neuts (auto) 12.1 H 10^3/uL
(1.4-6.5)
Absolute Monos (auto) 1.5 H 10^3/uL
(0.1-0.6)
Neutrophils % 78.3 H %
(42.2-75.2)
Lymphocytes % 10.3 L %
(20.5-51.1)
Monocytes % 9.5 H %
(1.7-9.3)
PT 15.4 H Sec
(11.4-14.6)
BUN 22 H mg/dl
(9-20)
Alkaline Phosphatase 167 H U/L
(38-126)
Albumin 3.4 L g/dl
(3.5-5.0)
12/17/23 19:19
12/17/23 19:19
Vital Signs
Initial and Last Documented VS:
Initial Vital Signs
Temp Pulse Resp BP Pulse Ox
98.5 F 100 14 157/91 96
12/17/23 10:26 12/17/23 10:26 12/17/23 10:26 12/17/23 10:26 12/17/23 10:26
Last Documented Vital Signs
Temp Pulse Resp BP Pulse Ox
97.2 F 98 18 164/89 95
12/17/23 16:00 12/17/23 19:54 12/17/23 19:54 12/17/23 19:54 12/17/23 19:54
MDM/Problems Addressed
MDM/Problems Addressed:
78-year-old male with history of lung cancer and anemia presenting for worsening weakness, status post admission for symptomatic anemia requiring transfusion. Vital signs significant for mild hypertension.
On exam, patient well-appearing, no acute distress. Benign cardiac and pulmonary exam. No tenderness to abdomen, soft nondistended. Patient however is Hemoccult positive. In review of EMR from recent admission on 12/13, Hemoccult positive at that
time as well. Patient had CT imaging without significant acute pathology, no evidence of hemorrhage. Patient had seen GI, advised follow-up outpatient. Given patient's symptoms with recent history of transfusion, concern for repeat symptomatic
anemia. Will obtain repeat laboratory analysis, coags, chest x-ray imaging given report of cough to evaluate for infectious pathology. Patient otherwise nontoxic, afebrile.
20:50 -patient's labs are reassuring, hemoglobin has improved, now 9.4. Mild leukocytosis. Chest x-ray shows possible right-sided pneumonia. In the setting of cough and leukocytosis, will start on antibiotics. Without concern for sepsis.
Patient in no respiratory distress, feel stable for discharge with oral antibiotics and outpatient follow-up. Advised following up with his doctor for port placement and initiation of chemotherapy. Also explained importance of GI follow-up for
persistent blood in stool. Strict return precautions communicated and patient verbalized understanding.
*Critical Care Note
Total Time (30-74mins, 75-104mins- exclusive of procedures): Not Applicable
ED Attending Note
-
Portions of this chart may have been created with voice recognition software.� Occasional wrong word or��sound alike� substitutions may have occurred due to the inherent limitations of voice recognition software.
Discharge Plan
Departure
Prescriptions:
No Action
acetaminophen [Tylenol] 325 mg Tablet
650 mg PO Q4H PRN (Reason: pain)
atorvastatin 20 mg Tablet
20 mg PO DAILY
ropinirole 0.5 mg Tablet
0.5 mg PO DAILY@1999
valsartan 320 mg Tablet
320 mg PO DAILY
benzonatate 200 mg Capsule
200 mg PO BID PRN (Reason: cough)
oxycodone 5 mg Tablet
5 mg PO BID PRN (Reason: severe pain)
prochlorperazine maleate 10 mg tablet
10 mg PO Q6HPRN PRN (Reason: nausea)
folic acid 1 mg tablet
1 mg PO DAILY
albuterol sulfate 90 mcg/actuation HFA aerosol inhaler
2 puff INHALATION Q4HPRN PRN (Reason: shortness of breath)
PreserVision AREDS-2 250-90-40-1 mg Capsule
1 tab PO BID
dextromethorphan-guaifenesin 10-100 mg/5 mL Syrup
10 ml PO HS
fluticasone propion-salmeterol [Wixela Inhub] 500-50 mcg/dose blister with device
1 ea INHALATION BID
Referrals:
Brian White MD [Family Provider] -
Interventions
Interventions:
*Risk Screen - Suicide Last Done: 12/17/23 19:51
*Neglect/Abuse Screening Last Done: 12/17/23 19:51
*ED COVID-19 Vaccine History Last Done: 12/17/23 10:33
Discharge Date and Time
Print Language: BRAZILIAN
[2023-12-17 19:28] LABS: % Basophils 0.4 % (0-2); % Immature Granulocytes 0.5 % (0-0.5); % Lymphocytes 10.3 % (20.5-51.1); % Monocytes 9.5 % (1.7-9.3); % Neutrophils 78.3 % (42.2-75.2); Absolute Basophils 0.1 10^3/uL (0-0.2); Absolute Eosinophils 0.2 10^3/uL (0-0.7); Absolute Immature Granulocytes 0.1 10^3/uL (0-0.05); Absolute Lymphocytes 1.6 10^3/uL (1.2-3.4); Absolute Monocytes 1.5 10^3/uL (0.1-0.6); Absolute Neutrophils 12.1 10^3/uL (1.4-6.5); Hematocrit 29.7 % (39.0-52.0); Hemoglobin 9.8 g/dL (13.0-18.0); Mean Corpuscular Hgb 27.5 pg (27.0-31.0); Mean Corpuscular Volume 83.4 fL (80.0-94.0); Mean Platelet Volume 9.2 fL (7.4-10.4); Nucleated Red Blood Cells % 0 % (-); Platelet Count 535 10^3/uL (130-400); Red Blood Cell Count 3.56 10^6/uL (4.70-6.10); Red Cell Dist. Width 15.6 % (11.5-14.5); White Blood Cell Count 15.5 10^3/uL (4.8-10.8)
[2023-12-17 19:36] LABS: INR 1.24; PT 15.4 Sec (11.4-14.6)
[2023-12-17 19:47] LABS: ALT (SGPT) 20 U/L (0-50); AST (SGOT) 28 U/L (17-59); Albumin 3.4 g/dl (3.5-5.0); Alkaline Phosphatase 167 U/L (38-126); Blood Urea Nitrogen 22 mg/dl (9-20); Calcium 9.4 mg/dl (8.4-10.2); Carbon Dioxide 25 mmol/L (22-30); Chloride 102 mmol/L (98-107); Glucose 91 mg/dl (70-99); Potassium 4.5 mmol/L (3.5-5.1); Sodium 136 mmol/L (135-145); Total Bilirubin 0.6 mg/dl (0.2-1.3); Total Protein 7.2 g/dl (6.3-8.2); eGFR > 60.00
[2023-12-17 19:54] VITALS: BP 164/89
[2023-12-17] MEDS: VIBRAMYCIN 100 MG PO (21:01)
== END 2023-12-17 21:24 | disposition home or self-care (01) ==
LOC: EMR 10:15
PROVIDERS: EMERGENCY PHYSICIAN Student in an Organized Health Care Education/Training Program; FAMILY PHYSICIAN Family Medicine
DX: R53.1 Weakness (principal); K92.1 Melena; R05.9 Cough, unspecified; C34.90 Malignant neoplasm of unspecified part of unspecified bronchus or lung; D64.9 Anemia, unspecified; D72.829 Elevated white blood cell count, unspecified
CPT/HCPCS: 99283; 71046; 80053; 85025; 85610; 86850; 86900; 86901

== ENCOUNTER 2023-12-24 13:41 | Inpatient (IN) | payer OTHER, SELFPAY ==
[2023-12-24] VITALS (16 sets, daily range): BP systolic 141–186; BP diastolic 70–90; BMI 22.5
--- NOTE | 2023-12-24 08:25 | ED.GENMED ---
History of Present Illness
General
Chief Complaint: DVT/Possible Blood Clot
Source: patient
Exam Limitations: none
Time Seen by Provider: 12/24/23 07:51
Nursing documentation reviewed up to this point in time: agreed with
Travel History
Have you had any contact with someone who has COVID-19?: No
Do you have any symptoms of coronavirus? Fever > 100 degrees, chills, cough, shortness of breath, sore throat, loss of taste or smell, muscle aches, or headache?: No
History of Present Illness
History of Present Illness:
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 The patient was recently admitted to the hospital for symptomatic anemia and found to have Hemoccult positive stool. Patient was transfused blood.
He reports he did not have a colonoscopy done. He denies abdominal pain. He reports he feels very weak and sleepy. He is worried that his blood counts have dropped again. Patient reports that he would like to get this sorted out, as he would
like to start chemotherapy for his cancer. In addition, patient reports over the last week he has noticed a right foot drop. Patient reports he is also having right calf pain. He denies back pain. Patient had a recent PET scan done which showed
no sign of mets to the bone. Patient denies bowel and bladder incontinence.
Past History
Past History
ED Past Medical History: Cancer (Metastatic lung cancer) and HTN
ED Past Surgical History: Other
Social History
Tobacco: Former smoker
Alcohol: Other
Drug: None
Personal:
Living: with family
Employment: Other
Family History
Family History: Other
Review of Systems
Review of Systems
Allergies reviewed?: Yes
All Other Systems: ROS reviewed and negative except as documented in HPI and ROS
Constitutional: Reports fatigue
EENT: Reports no symptoms
Cardiac: Reports no symptoms
ABD/GI: Reports no symptoms
: Reports no symptoms
Musculoskeletal: Reports no symptoms
Skin: Reports no symptoms
Neurological: Reports other (Weakness of right foot. No other areas of weakness. No numbness)
Endocrine: Reports no symptoms
Hematologic/Lymphatic: Reports no symptoms
Psychiatric: Reports no symptoms
Phy Exam
Physical Exam
Physical Exam:
Physical Exam
General: no apparent distress, not acutely ill but appears pale
Neck: supple. no meningeal signs. normal psoterior pharynx
Heart: s1/s2 regular rate and rhythm, no murmur. equal radial pulses.
Lungs: no acute respiratory distress.
Abdomen: normal bowel sounds. not tender. no CVAT
Neuro: alert and orientedx3. Isolated weak plantar and dorsiflexion of right foot. Equal sensation of arms and legs bilaterally. No saddle anesthesia. 5 out of 5 strength in upper extremities bilaterally. 5 out of 5
strength in left lower extremity. Cranial nerves equal and symmetric bilaterally
Skin: no rash
Psychiatric: well kept. interactive and cooperative
Extremities: Mild edema of left foot and ankle. Mild calf tenderness of right calf
Course
Orders/Labs/Results
Orders:
Orders
12/24/23 08:25
Legs, Right US [US Periph Venous LOWER Ext RT] Urgent
Comment:
Reason For Exam: R calf pain, new foot drop
12/24/23 09:27
Complete Blood Count/With Diff Urgent
12/24/23 09:28
Comprehensive Metabolic Panel Urgent
12/24/23 11:00
* Blood Bank Products Urgent
'johnathan Orders: [place]
Blood Bank Products: *Packed RBC Leuko(PRBC's)
Quantity: 1
Transfuse Today: Yes
Is product needed for scheduled surgery?: No
Reason: Anemia
IV Insert/Care/Rem.- Treatment PRN
12/24/23 11:36
Type+Screen Urgent
Abnormal Lab Results
12/24/23 12/24/23 12/24/23
09:27 09:28 11:36
WBC 13.8 H 10^3/uL
(4.8-10.8)
RBC 2.69 L 10^6/uL
(4.70-6.10)
Hgb 7.3 L D g/dL
(13.0-18.0)
Hct 23.2 L %
(39.0-52.0)
MCHC 31.5 L g/dL
(33.0-37.0)
RDW 15.9 H %
(11.5-14.5)
Plt Count 492 H 10^3/uL
(130-400)
Abs Immat Gran (auto) 0.1 H 10^3/uL
(0-0.05)
Absolute Neuts (auto) 11.2 H 10^3/uL
(1.4-6.5)
Absolute Monos (auto) 1.2 H 10^3/uL
(0.1-0.6)
Neutrophils % 80.7 H %
(42.2-75.2)
Lymphocytes % 9.7 L %
(20.5-51.1)
BUN 23 H mg/dl
(9-20)
Alkaline Phosphatase 148 H U/L
(38-126)
Albumin 3.0 L g/dl
(3.5-5.0)
Crossmatch IS Only See Detail
12/24/23 09:27
12/24/23 09:28
Vital Signs
Initial and Last Documented VS:
Initial Vital Signs
Temp Pulse Resp BP Pulse Ox
97.8 F 86 24 186/90 100
12/24/23 06:40 12/24/23 06:40 12/24/23 06:40 12/24/23 06:40 12/24/23 06:40
Last Documented Vital Signs
Temp Pulse Resp BP Pulse Ox
97.8 F 73 17 163/90 96
12/24/23 06:40 12/24/23 09:48 12/24/23 09:48 12/24/23 11:00 12/24/23 11:00
MDM/Problems Addressed
Differential Diagnosis Includes:
Symptomatic anemia, neuropathy, stable GI bleed
MDM/Problems Addressed:
Patient presents with acute right foot drop and acute on chronic weakness
Chronic conditions affecting care:
Anemia
Acute Exacerbation and/or Progression of Chronic Illness:
Anemia
Acute Exacerbation and/or Progression of Chronic Illness: Other (Anemia)
*Pulse Oximetry
Patient hypoxic: no
*EKG
Interpreted by ED Provider?: NA
*Software Security Architect Interpretation
Rate: normal
Interpretation: normal
Rhythm: sinus
*Critical Care Note
Total Time (30-74mins, 75-104mins- exclusive of procedures): Not Applicable
Data Reviewed
Review of Other/Old Records Reveals: Discharge Summary (Discharge summary reviewed from 12/17/2023 when patient was admitted for symptomatic anemia and found to be Hemoccult positive)
Source: patient
Patient Management
Discussion with other providers: Hospitalist
Escalation/DeEscalation of care consider admission/obs:
Given patient would really like to start lung cancer treatment, I feel it is very important for this symptomatic anemia to be sorted out. Perhaps patient can get a colonoscopy while admitted to the hospital. Patient gave written consent for blood
transfusion.
Update Note
Update Note:
Patient has no saddle anesthesia to suggest cauda equina. He is isolated right foot weakness.
Given patient feels very tired and has hemoglobin of 7.3, blood transfusion ordered.
ED Attending Note
-
Portions of this chart may have been created with voice recognition software.� Occasional wrong word or��sound alike� substitutions may have occurred due to the inherent limitations of voice recognition software.
Discharge Plan
Departure
Patient Disposition: Admit
Date of Disposition: 12/24/23
Time of Disposition: 11:11
Admit to: Med/Surg
Presentation/result/management discussed w/ accepting MD/DO: Hospitalist
Condition: Good
Covid-19: Not Applicable
Discharge Problem:
Symptomatic anemia, Acute right foot drop
Prescriptions:
No Action
acetaminophen [Tylenol] 325 mg Tablet
650 mg PO BIDPRN PRN (Reason: mild pain)
atorvastatin 20 mg Tablet
20 mg PO DAILY
ropinirole 0.5 mg Tablet
0.5 mg PO HS
valsartan 320 mg Tablet
320 mg PO DAILY
folic acid 1 mg tablet
1 mg PO DAILY
PreserVision AREDS-2 250-90-40-1 mg Capsule
1 tab PO BID
fluticasone propion-salmeterol [Wixela Inhub] 500-50 mcg/dose blister with device
1 ea INHALATION R HS
doxycycline hyclate 100 mg capsule
100 mg PO BID 7 Days Qty: 14 0RF
Theragen Tablet
1 tab PO DAILY
guaifenesin [Robitussin] 100 mg/5 mL Liquid
200 mg PO Q4HPRN PRN (Reason: cough)
Referrals:
Brian White MD [Family Provider] -
Interventions
Interventions:
*Risk Screen - Suicide Last Done: 12/24/23 06:40
*General Assessment Last Done: 12/24/23 09:48
*Neglect/Abuse Screening Last Done: 12/24/23 06:40
*ED COVID-19 Vaccine History Last Done: 12/24/23 09:48
ED- Cardiac Assessment Last Done: 12/24/23 09:49
ED-Musculoskeletal Assessment Last Done: 12/24/23 09:49
ED- Pulmonary Assessment Last Done: 12/24/23 09:49
ED-Peripheral Vascular Assessment Last Done: 12/24/23 09:49
ED-Skin Assessment Last Done: 12/24/23 09:49
Discharge Date and Time
Print Language: CITIZEN OF [place]
[2023-12-24 09:54] LABS: % Basophils 0.3 % (0-2); % Eosinophils 0.5 % (0-6); % Immature Granulocytes 0.4 % (0-0.5); % Lymphocytes 9.7 % (20.5-51.1); % Monocytes 8.4 % (1.7-9.3); % Neutrophils 80.7 % (42.2-75.2); Absolute Eosinophils 0.1 10^3/uL (0-0.7); Absolute Immature Granulocytes 0.1 10^3/uL (0-0.05); Absolute Lymphocytes 1.3 10^3/uL (1.2-3.4); Absolute Monocytes 1.2 10^3/uL (0.1-0.6); Absolute Neutrophils 11.2 10^3/uL (1.4-6.5); Hematocrit 23.2 % (39.0-52.0); Hemoglobin 7.3 g/dL (13.0-18.0); Mean Corp Hgb Conc. 31.5 g/dL (33.0-37.0); Mean Corpuscular Hgb 27.1 pg (27.0-31.0); Mean Corpuscular Volume 86.2 fL (80.0-94.0); Mean Platelet Volume 9.9 fL (7.4-10.4); Nucleated Red Blood Cells % 0 % (-); Platelet Count 492 10^3/uL (130-400); Red Blood Cell Count 2.69 10^6/uL (4.70-6.10); Red Cell Dist. Width 15.9 % (11.5-14.5); White Blood Cell Count 13.8 10^3/uL (4.8-10.8)
[2023-12-24 10:15] LABS: ALT (SGPT) 18 U/L (0-50); AST (SGOT) 30 U/L (17-59); Alkaline Phosphatase 148 U/L (38-126); Blood Urea Nitrogen 23 mg/dl (9-20); Calcium 9.1 mg/dl (8.4-10.2); Carbon Dioxide 26 mmol/L (22-30); Chloride 104 mmol/L (98-107); Glucose 97 mg/dl (70-99); Potassium 4.7 mmol/L (3.5-5.1); Sodium 136 mmol/L (135-145); Total Bilirubin 0.5 mg/dl (0.2-1.3); Total Protein 6.5 g/dl (6.3-8.2); eGFR > 60.00
--- NOTE | 2023-12-24 13:13 | HPS.HSE ---
Family Physician
-
Family Physician: Brian White
Chief Complaint
-
foot drop and weakness
History of Present Illness
78-year male with past medical history of essential hypertension, COPD, GERD, restless leg syndrome, pulmonary adenocarcinoma, left adrenal metastases, anemia came to the hospital with generalized weakness and right foot drop. Was found to be
anemic in the ED. Patient was recently discharged with outpatient GI follow-up for his anemia. Patient denies erasmo bleeding. Denies any NSAID use. Never had colonoscopy in the past. He is still yet to get port for his chemotherapy to start his
treatments. He follows with Dr. Portillo outpatient. In ED his hemoglobin was found to be 7.3, all discharge last week hemoglobin was 9.8. He denies any abdominal pain. Denies any chest pain, shortness of breath. Denies any nausea, vomiting,
diarrhea, constipation.
Medical History
Past Medical History
Past Medical History: Reports Cancer (Lung), COPD, HTN, Hypercholesterolemia and Other (Restless leg, left adrenal metastases)
Past Surgical History: Reports None
Social History
Tobacco: Former Smoker
Alcohol: None
Family History
Family History: Not pertinent
Allergies / Home Medications
Allergies reflects when Allergies were last updated in [facility].
Home Medications with original date entered in [facility]
Allergy/Medication List:
Allergies
Allergy/AdvReac Type Severity Reaction Status Date / Time
No Known Allergies Allergy Verified 12/24/23 06:43
Home Medications
atorvastatin 20 mg tablet 20 mg PO DAILY High Cholesterol 11/02/23
ropinirole 0.5 mg tablet 0.5 mg PO HS Restless Leg Syndrome 11/02/23
valsartan 320 mg tablet 320 mg PO DAILY Blood Pressure 11/02/23
acetaminophen 325 mg tablet (Tylenol) 650 mg PO BIDPRN PRN mild pain 11/05/23
fluticasone 500 mcg-salmeterol 50 mcg/dose blistr powdr for inhalation (Wixela Inhub) 1 ea inhalation R HS Lung/Breathing Issues 12/14/23
folic acid 1 mg tablet 1 mg PO DAILY Supplement 12/14/23
vit C 250 mg-vit E 90 mg-zinc 40 mg-copper 1 [id number] capsule (PreserVision AREDS-2) 1 tab PO BID Supplement 12/14/23
doxycycline hyclate 100 mg capsule 100 mg PO BID 7 days #14 caps 12/17/23
guaifenesin 100 mg/5 mL oral liquid 200 mg PO Q4HPRN PRN cough 12/24/23
therapeutic multivitamin 1 tab PO DAILY 12/24/23
Review of Systems
-
History Source: Patient
A 12 point ROS was completed and negative except as noted: Yes
Physical Exam
Vital Signs
Vital Signs
Temp Pulse Resp BP Pulse Ox
97.8 F 73 17 163/90 96
12/24/23 06:40 12/24/23 09:48 12/24/23 09:48 12/24/23 11:00 12/24/23 11:00
Physical Exam
General: Well Nourished and No Apparent Distress
HEENT: Anicteric and Moist mucous membranes
Respiratory: Clear and Non Labored Respirations; No Wheezes
Cardiac: S1/S2 and Regular Rhythm
Breast: Deferred by me
GI: Soft, Non Tender and Non Distended
Genito-urinary: No [place]
Musculoskeletal: Edema, Left Lower Extremity and Edema, Right Lower Extremity
Neuro: Awake, Alert, Oriented and AO x 3
Psych: Calm and Intact Judgment/Insight
Laboratory Results
-
12/24/23 09:27
12/24/23 09:28
Laboratory Results
Total Bilirubin 0.5 mg/dl (0.2-1.3) 12/24/23 09:28
AST 30 U/L (17-59) 06/10/24 09:28
ALT 18 U/L (0-50) 12/24/23 09:28
Alkaline Phosphatase 148 U/L (38-126) H 12/24/23 09:28
Data Reviewed
-
Lab Data: Labs Reviewed by me and Discussed with Patient
Impression/Plan
-
Symptomatic anemia
Suspect acute to subacute blood loss anemia
Check iron panel, B12, folate.
Recent hospitalization with anemia which improved after blood transfusion and GI scope was deferred
hgb 9.8 last week on dc; now 7.3
Consult GI
Transfuse 1 unit in ED, monitor hemoglobin
Heme test stool
Clears for now
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
Patient follows up with Dr. Portillo, still yet to receive chemotherapy. Port insertion later this week outpatient
Right foot drop
might need EMG outpatient; PT/OT
venous doppler neg for DVT
on my exam his symptoms appears to be intermittent
Recent PNA
on doxycycline; continue
recent xray 12/16 with possible PN vs loculated effusion; repeat imaging
might need CT chest if concern for loculated effusion
Essential hypertension
Continue valsartan
COPD, not in exacerbation
Continue inhalers
Hyperlipidemia
GERD
Restless leg syndrome
DVTppx
SCD;s
Full code
I spent a total of 78 minutes with the patient or on the floor. More than 50% of this time involved counseling and coordination of care.
[2023-12-24 13:47] LABS: Iron 33 ug/dl (49-181)
[2023-12-24 13:57] LABS: Percent Saturation 15 % (20-50); Total Iron Binding Capacity 217 ug/dl (261-462)
[2023-12-24 15:48] LABS: Folate 16.4 ng/ml (2.76-20); Vitamin B12 798 pg/ml (239-931)
[2023-12-24] MEDS: APRESOLINE 5 MG IV (16:01)
--- NOTE | 2023-12-24 16:04 | CON.GI ---
Addendum entered and electronically signed by Kym Correa MD 12/24/23 16:29:
I saw and examined the patient.
The ABRASIVE MIXER or PA's note was reviewed and I agree with the note.
Comment: 78-year-old male with history of recent diagnosis of metastatic lung adenocarcinoma in October 2023, had not started any chemo yet, he was seen in the emergency room last week for low hemoglobin but heme positive stool without any significant
bleeding, was discharged home now presenting with black stool in the last 2 days. Hemoglobin on discharge last week was 9.8 and now at 7.3 with black stool. Hemodynamically stable. No previous history of GI bleeding. Never had upper endoscopy or
colonoscopy. Cologuard 2 years ago negative. No family history of colon cancers or polyps. No abdominal pain, nausea or vomiting. No heartburn, trouble swallowing. No constipation or diarrhea. Previous smoker, quit alcohol about 10 years ago.
No NSAID use.
- Anemia with black stool
Rule out esophagitis, gastric/duodenal ulcer disease, AVM versus other
Clear liquid diet for now and n.p.o. past midnight
Protonix drip
Monitor H&H and transfuse as needed.
For EGD tomorrow.
Original Note:
Consultation
-
Date/Time Consultation Requested: 12/24/23 1307
Date/Time Consultation Performed: 12/24/23 1550
Requesting Provider: Dr. Leblanc
Performing Provider: Dr. Correa/PATRICIA Giordano
Reason for Consultation: anemia
Medical History
Chief Complaint / HPI
Chief Complaint: fatigue
History of Present Illness:
78-year-old male with past medical history of chronic cough, COPD, hypertension, GERD, restless leg syndrome with recent diagnosis of metastatic adenocarcinoma of the lung status post bronchoscopy 11/05/2023 as well as recent left adrenal mass biopsy
on 12/06/2023 who presents to the emergency room with progressive fatigue and right foot drop. We saw the patient on 12/14/23 after he was told to come to the ER for a low hemoglobin. At that time his stool was noted to be brown but OB positive.
His Hgb at that time was 6.4 and he was transfused 2 units PRBC with HGb going up to 9.8. He was supposed to have a port placed on 12/18/23 but states this date was changed to 12/27/23. Last week He was DC after discussion with Oncology for outpatient
follow up. HE comes in to hospital today with right foot drop 3 days ago and progressive SOB x 2 days. HE also had 2 days of black stools 1 time a day. Rectal exam at this time confirms melena. He does have a history of gastroesophageal reflux
disease and was on omeprazole approximately a few years ago however approximately 1 year ago he states that his symptoms resolved on their own and he no longer needed PPI therapy. He states on rare occasion he will have an instance of reflux and
this will go away with Tums. The patient states that over the past month he has lost approximately 12 pounds. This is despite 'eating like a horse'. He did get started on oxycodone for left shoulder pain within the past week. He did develop
nausea on 12/14/23 and was prescribed prochlorperazine that he took that day. He has not had any further nausea. He states he has had Cologuard's performed in the past his last one was 2 years ago which was normal and the other was 2 years prior to
that that was also normal. He has no family history of gastrointestinal malignancy that he is aware of. He has a sister that of cancer of an unknown type. The patient has never had an endoscopy or colonoscopy before. He quit smoking
approximately 5 years ago. He quit drinking alcohol approximately 10 years ago. Prior to that he would drink approximately 2-3 beers a week. He does not use any NSAIDs or aspirin. He denies any fevers, chills,hematochezia, dysphagia or
odynophagia. No early satiety, thinning of the stools change or change in stool caliber. Currently WBC 13.8, hemoglobin 7.3, hematocrit 23.2, platelets 492, sodium 136, potassium 4.7, chloride 104, CO2 26, BUN 23, creatinine 0.8, iron 33, TIBC
217, percent iron saturation 15, ferritin 503, B12 798, folate 16.4, total bilirubin 0.5, AST 30, ALT 18, alk phos 148
Past Medical History
Past Medical History: Cancer (Metastatic adenocarcinoma lung), COPD, GERD, HTN, Hypercholesterolemia and Other (RLS)
Past Surgical History: Other (Bronchoscopy 11/05/2023, left adrenal mass biopsy 12/06/2023, left hernia)
Social History
Tobacco: Former Smoker (Quit 5 years ago)
Alcohol: Other (None in 10 years, prior 2-3 beers a week)
Drug: None
Personal:
Living: With Family
Employment: Retired
Family History
Family History: Other (No family history of gastrointestinal malignancy or IBD.)
Allergies / Home Medications
Allergy/AdvReac Type Severity Reaction Status Date / Time
No Known Allergies Allergy Verified 12/24/23 06:43
�Medication �Instructions �Recorded
atorvastatin 20 mg tablet 20 mg PO DAILY High Cholesterol 11/02/23
ropinirole 0.5 mg tablet 0.5 mg PO HS Restless Leg Syndrome 11/02/23
valsartan 320 mg tablet 320 mg PO DAILY Blood Pressure 11/02/23
acetaminophen 325 mg tablet 650 mg PO BIDPRN PRN mild pain 11/05/23
(Tylenol)
fluticasone 500 mcg-salmeterol 50 1 ea inhalation R HS 12/14/23
mcg/dose blistr powdr for Lung/Breathing Issues
inhalation (Wixela Inhub)
folic acid 1 mg tablet 1 mg PO DAILY Supplement 12/14/23
vit C 250 mg-vit E 90 mg-zinc 40 1 tab PO BID Supplement 12/14/23
mg-copper 1 [id number]
capsule (PreserVision AREDS-2)
doxycycline hyclate 100 mg capsule 100 mg PO BID Infection 12/24/23
guaifenesin 100 mg/5 mL oral liquid 200 mg PO Q4HPRN PRN cough 12/24/23
therapeutic multivitamin 1 tab PO DAILY Supplement 12/24/23
Review of Systems
-
All other systems: A 12 pt ROS was Negative except as stated above in HPI
Vital Signs
Temp Pulse Resp BP Pulse Ox
99.7 F 86 17 162/89 95
12/24/23 15:34 12/24/23 16:01 12/24/23 15:34 12/24/23 16:01 12/24/23 15:34
Physical Exam
Exam
General: No Apparent Distress
HEENT: Anicteric and Other (Rhinophyma)
Respiratory: Clear and Other (Intermittent cough)
Cardiac: Regular Rhythm
GI: Soft, Non Tender, Non Distended and Normal Bowel Sounds
Rectal: Brown (Occult blood positive stool per ER)
Musculoskeletal: No Edema and Other (right foot drop)
Skin: Warm and Dry
Neuro: AO x 3
Psych: Calm
Results
WBC 13.8 10^3/uL (4.8-10.8) H 12/24/23 09:27
Hgb 7.3 g/dL (13.0-18.0) L D 12/24/23 09:27
Hct 23.2 % (39.0-52.0) L 12/24/23 09:27
MCV 86.2 fL (80.0-94.0) 12/24/23 09:27
Plt Count 492 10^3/uL (130-400) H 12/24/23 09:27
Absolute Neuts (auto) 11.2 10^3/uL (1.4-6.5) H 12/24/23 09:27
Sodium 136 mmol/L (135-145) 12/24/23 09:28
Potassium 4.7 mmol/L (3.5-5.1) 12/24/23 09:28
Chloride 104 mmol/L (98-107) 12/24/23 09:28
Carbon Dioxide 26 mmol/L (22-30) 12/24/23 09:28
BUN 23 mg/dl (9-20) H 12/24/23:28
Creatinine 0.8 mg/dL (0.7-1.3) 12/24/23:
Calcium 9.1 mg/dl (8.4-10.2) 12/24/23:
Total Bilirubin 0.5 mg/dl (0.2-1.3) 12/24/23:
AST 30 U/L (17-59) 12/24/23:
ALT 18 U/L (0-50) 12/24/23:
Alkaline Phosphatase 148 U/L (38-126) H 12/24/23:
Diagnostic Image Results:
US RLE 12/24/23:
IMPRESSION:
No evidence of DVT of the right lower extremity.
PET CT 11/14/23:
CLINICAL INDICATION: 78-year-old man with right paratracheal and subcarinal lymphadenopathy. The patient is undergoing a PET/CT examination for diagnosis (initial therapy encounter).
TECHNIQUE: A PET/CT examination was performed following the intravenous injection of 9.3 mCi F-18 FDG in the right antecubital fossa at 8:47 AM on 11/14/2023. Images were acquired from the level of the skull base to the level of the mid thighs. The
blood glucose level at the time of injection measured 98 mg/deciliter. Axial, sagittal, and coronal fused reformatted images were obtained. Dual point imaging of the chest was performed. Low-dose CT images were acquired for attenuation correction
purposes only. Automatic exposure control radiation dose reduction technology was utilized.
COMPARISON: Comparison is made with CT examinations of the chest performed 11/02/2023 and 10/24/2023. Comparison is made with a portable radiographic examination of the chest performed 11/05/2023.
FINDINGS:
HEAD and NECK:
There are large number of calcified tonsilloliths in both sides of the oropharynx. FDG uptake in the oropharynx measures SUV max 3.7 on the right and SUV max 3.4 on the left. There are tiny left level 5 posterior triangle lymph nodes in the neck
measuring SUV max 2.8 which could be metastatic or inflammatory in etiology.
CHEST:
MEDIASTINUM: The heart is normal in size. There is moderate calcific atherosclerotic plaque in the coronary arteries. There is calcification in the aortic valve. There is severe calcific atherosclerotic plaque in the thoracic aortic arch. There is a
small pericardial effusion. There is a large 2.9 x 3.3 cm metastatic right paratracheal lymph node measuring SUV max 12.2 initial, SUV max 13.6 delayed. There is a large 2.6 x 3.7 cm metastatic subcarinal lymph node measuring SUV max 12.9 initial,
SUV max 15.3 delayed. A small metastatic left lower paratracheal lymph node measures SUV max 2.9. Metastatic right-sided superior mediastinal lymph node measures SUV max 4.6. Malignant lymphadenopathy in the right hilum measures SUV max 9.4 initial,
SUV max 11.0 delayed.
There is no abnormal increased FDG uptake in the left hilum. Tiny left supraclavicular lymph nodes measure SUV max 2.6 and could be tiny peg metastases. There is no abnormal increased FDG uptake in axillary lymph nodes.
LUNGS: There is a large 8.2 x 5.3 cm lobular mass in the right middle lobe consistent with primary lung cancer which extends posteriorly into the right hilum and superiorly through the right minor fissure into the inferior aspect of the right upper
lobe. The mass measures SUV max 8.2 initial, SUV max 10.0 delayed in the right middle lobe and posteriorly in the right hilum measures SUV max 9.5 initial, SUV max 11.9 delayed.
As a 6 mm solid pulmonary nodule in the anterior basilar segment of the right lower lobe which has not demonstrate increased FDG uptake, but could be a small pulmonary metastasis. There is no abnormal increased FDG uptake in the left lung to suggest
FDG avid pulmonary metastatic disease. There is a mild amount of biapical lung scarring. There is no pleural effusion or pneumothorax.
ABDOMEN and PELVIS:
There is no abnormal increased FDG uptake in the liver to suggest FDG avid hepatic metastatic disease. There are a moderate number of low attenuation cysts diffusely distributed throughout the liver measuring up to 2.2 cm in size in the right lobe.
There is a large centrally necrotic 9.2 x 8.6 cm metastasis in the left adrenal gland measuring SUV max 18.9. Moderate FDG uptake in the right adrenal gland measures SUV max 2.8.
There are moderate number of nonobstructing left intrarenal calculi measuring up to 6.6 mm in size. There are small number of tiny nonobstructing right intrarenal calculi. There are very large number of small layering calculi in the urinary bladder.
The prostate gland is severely enlarged and contains multiple calcifications.
There is moderate diverticulosis in the sigmoid colon. There is no ascites. There is no abnormal increased FDG uptake in abdominal or pelvic lymph nodes. There is very severe calcific atherosclerotic plaque in the abdominal aorta and common iliac
arteries.
SKELETON:
There is no abnormal increased FDG uptake in the skeleton to suggest FDG avid osseous metastatic disease. There is grade 1 anterolisthesis of L4 on L5.
In accordance with Act 112, known as the Patient Test Results Information Act, a letter will be sent to the patient which notifies the patient that a significant abnormality may exist. The letter will be sent within approximately 20 days of the
date the results were sent to the ordering health care practitioner.
Electronically signed by Félix Vo MD 11/14/2023 6:21 PM
Prior GI Procedures:
EGD: never
Colonoscopy: Cologard x 2 (negative)
Assessment / Plan
-
78-year-old male with past medical history of chronic cough, COPD, hypertension, GERD, restless leg syndrome with recent diagnosis of metastatic adenocarcinoma of the lung status post bronchoscopy 11/05/2023 as well as recent left adrenal mass biopsy
on 12/06/2023 who presents to the emergency room with progressive fatigue and right foot drop. We saw the patient on 12/14/23 after he was told to come to the ER for a low hemoglobin. At that time his stool was noted to be brown but OB positive.
His Hgb at that time was 6.4 and he was transfused 2 units PRBC with HGb going up to 9.8. He was supposed to have a port placed on 12/18/23 but states this date was changed to 12/27/23. Last week He was DC after discussion with Oncology for outpatient
follow up. HE comes in to hospital today with right foot drop 3 days ago and progressive SOB x 2 days. HE also had 2 days of black stools 1 time a day. Rectal exam at this time confirms melena.
Impression:
Melena
Anemia
Metastatic adenocarcinoma lung Status post bronchoscopy 11/05/2023, has not started Tx.
Left adrenal mass status postbiopsy 12/06/2023
Recent PNA on 12/17/23-> started on Doxycycline
Right foot drop
Plan:
-Pantoprazole gtt
-Clear liquids tonight NPO after midnight
-EGD tomorrow
-Repeat CBC after blood transfusion, trend and transfuse as needed.
-Further recommendations to be forthcoming.
Data Reviewed
-
Ultrasound: Report Reviewed by me
Old Records: Reviewed
-
-
Thank you for consultation and allowing me to participate in the patient's care. Please call the solution design and analysis manager GI physician during the after hours with any questions or concerns.
[2023-12-24] MEDS: PROTONIX 100 IV (17:21)
[2023-12-24] MEDS: ADVAIR HFA 230/21 MCG INHALER 2 PUFF INH (19:58)
[2023-12-24] MEDS: VIBRAMYCIN 100 MG PO (20:13)
[2023-12-24] MEDS: OCUVITE SOFTGEL 1 CAP PO (20:13)
[2023-12-24] MEDS: REQUIP 0.5 MG PO (20:32)
[2023-12-24] MEDS: TYLENOL 650 MG PO (21:39)
[2023-12-25] VITALS (12 sets, daily range): BP systolic 130–160; BP diastolic 58–90; PULSE 67–103; O2SAT 96–97; BMI 22.1
[2023-12-25] MEDS: PROTONIX 100 IV ×2 (02:36→14:27)
[2023-12-25 05:35] LABS: % Basophils 0.4 % (0-2); % Eosinophils 0.6 % (0-6); % Immature Granulocytes 0.6 % (0-0.5); % Lymphocytes 12.1 % (20.5-51.1); % Monocytes 9.4 % (1.7-9.3); % Neutrophils 76.9 % (42.2-75.2); Absolute Basophils 0.1 10^3/uL (0-0.2); Absolute Eosinophils 0.1 10^3/uL (0-0.7); Absolute Immature Granulocytes 0.1 10^3/uL (0-0.05); Absolute Lymphocytes 1.7 10^3/uL (1.2-3.4); Absolute Monocytes 1.3 10^3/uL (0.1-0.6); Absolute Neutrophils 10.7 10^3/uL (1.4-6.5); Hematocrit 24.8 % (39.0-52.0); Mean Corp Hgb Conc. 32.3 g/dL (33.0-37.0); Mean Corpuscular Hgb 26.9 pg (27.0-31.0); Mean Corpuscular Volume 83.5 fL (80.0-94.0); Mean Platelet Volume 9.7 fL (7.4-10.4); Nucleated Red Blood Cells % 0 % (-); Platelet Count 487 10^3/uL (130-400); Red Blood Cell Count 2.97 10^6/uL (4.70-6.10); Red Cell Dist. Width 16.2 % (11.5-14.5); White Blood Cell Count 13.9 10^3/uL (4.8-10.8)
[2023-12-25 05:46] LABS: INR 1.21; PT 15.1 Sec (11.4-14.6)
[2023-12-25 06:01] LABS: Blood Urea Nitrogen 15 mg/dl (9-20); Calcium 9.4 mg/dl (8.4-10.2); Carbon Dioxide 24 mmol/L (22-30); Chloride 101 mmol/L (98-107); Estimated Creatinine Clearance 71 ml/min; Glucose 87 mg/dl (70-99); Potassium 4.4 mmol/L (3.5-5.1); Sodium 136 mmol/L (135-145); eGFR > 60.00
[2023-12-25] MEDS: ADVAIR HFA 230/21 MCG INHALER 2 PUFF INH ×2 (07:40→20:46)
--- NOTE | 2023-12-25 10:04 | CM ---
Addendum entered by Nalini Gutierrez 12/25/23 11:21:
PT recommends Home Health for PT; patient agreeable; referral sent via [facility] to [facility] via [employer]
Original Note:
Met with patient at bedside; initial assessment completed
Patient recently diagnosed with Lung CA and scheduled to have a Port inserted for Chemo soon; his was diagnosed with Breast CA and had a Mastectomy 2021; he reported he does the cooking and cleaning
NPO, scheduled for endoscopy today
Pharmacy verified: [facility]
Patient reported that he and his live in a mobile home; 3 steps to enter; bathroom has shower stall with grab bars
PLOF: patient reported that he has been independent with ambulation, stairs, and ADLs; Drives, Retired
SNF/Rehab/Home Health utilization history: None
Transport: patient drove self to the hospital; truck in the parking lot. No one else available to transport him home
Plan: PT evaluation pending; patien's goal is to go home when medically stable; CM will monitor for DC needs
--- NOTE | 2023-12-25 10:06 | W.PN.HOSP.TC ---
Addendum entered and electronically signed by Shaka Leblanc MD 12/25/23 14:44:
Per conversation with GI and oncology. Appears Oncology is recommended transfusion support and expedite follow-up to start chemo. Will repeat hemoglobin later today.
Original Note:
Today's Communication/Plan
-
Monitor vital signs and see plan
Continue PPI drip
EGD today
Monitor hemoglobin
pt/ot
Assessment / Plan
Assessment / Plan
Symptomatic anemia
Suspect acute to subacute blood loss anemia
iron panel has good iron stores; normal b12,folate
Recent hospitalization with anemia which improved after blood transfusion and GI scope was deferred
hgb 9.8 last week on dc; now 7.3 on admission. s/p 1 unit prbc; hgb now 8
Consult GI
Transfuse 1 unit in ED, monitor hemoglobin
NPO for EGD today; on PPI gtt
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
Patient follows up with Dr. Portillo, still yet to receive chemotherapy. Port insertion later this week outpatient
Right foot drop
might need EMG outpatient; PT/OT
venous doppler neg for DVT
on my exam his symptoms appears to be intermittent
Recent PNA
on doxycycline; continue for 5-7days
recent xray 6/3 with possible PN vs loculated effusion; repeat imaging with stable midlung opacity
Essential hypertension
Continue valsartan
COPD, not in exacerbation
Continue inhalers
Hyperlipidemia
GERD
Restless leg syndrome
DVTppx
SCD;s
Full code
General: Well Nourished and No Apparent Distress
HEENT: Anicteric and Moist mucous membranes
Respiratory: Clear and Non Labored Respirations; No Wheezes
Cardiac: S1/S2 and Regular Rhythm
GI: Soft, Non Tender and Non Distended
Genito-urinary: No [place]
Musculoskeletal: Edema, Left Lower Extremity and Edema, Right Lower Extremity
Neuro: Awake, Alert, Oriented and AO x 3
Psych: Calm and Intact Judgment/Insight
Anticipated Discharge: 24 - 48 hours
Subjective/Interval History
-
Date of Service: December 25, 2023
denies pain
Objective Data
-
Labs:
Laboratory Results
12/25/23
05:07
WBC 13.9 H
Hgb 8.0 L
Hct 24.8 L
Plt Count 487 H
PT 15.1 H
INR 1.21
Sodium 136
Potassium 4.4
Chloride 101
Carbon Dioxide 24
BUN 15
Creatinine 0.8
Glucose 87
Calcium 9.4
Vital Signs:
Vital Signs
Temp Pulse Resp BP Pulse Ox
98.0 F 86 16 157/89 96
12/25/23 07:15 12/25/23 07:44 12/25/23 07:44 12/25/23 07:15 12/25/23 08:00
I&O
12/24/23 12/25/23 12/26/23
06:59 06:59 06:59
Intake Total 610 / 610
Output Total 1675 / 1675 400 / 400
Balance -1065 / -1065 -400 / -400
--- NOTE | 2023-12-25 10:20 | PTCARENOTE ---
assumed care of pt from previous shift this am. assessment as documented. NPO since midnight awaiting EGD this am. pt offering no c/o abdominal discomfort. voided in urinal. report given to Azeb in GI lab and pt transported via stretcher
w/volunteer.
[2023-12-25] MEDS: VIBRAMYCIN 100 MG PO ×2 (11:51→21:32)
[2023-12-25] MEDS: OCUVITE SOFTGEL 1 CAP PO ×2 (11:52→21:32)
[2023-12-25] MEDS: LIPITOR 20 MG PO (11:52)
[2023-12-25] MEDS: THERAGRAN 1 TABLET PO (11:52)
[2023-12-25] MEDS: DIOVAN 320 MG PO (11:52)
[2023-12-25] MEDS: FOLVITE 1 MG PO (11:52)
[2023-12-25 12:20] LABS: Hepatitis C Antibody Negative (Negative)
[2023-12-25 21:08] LABS: Hematocrit 21.6 % (39.0-52.0); Hemoglobin 7.2 g/dL (13.0-18.0)
[2023-12-25] MEDS: REQUIP 0.5 MG PO (21:33)
[2023-12-26] VITALS (14 sets, daily range): BP systolic 127–160; BP diastolic 70–91
[2023-12-26] MEDS: PROTONIX IV (01:00)
[2023-12-26] MEDS: PROTONIX 100 IV (01:00)
--- NOTE | 2023-12-26 01:23 | PTCARENOTE ---
Hemestool test was +, STRAIGHTENER AND ALIGNER made aware. D/t pt's hemoglobin of 7.2 - RN asked that pt use the call díaz and wait for assistance w ambulation. Pt verbalized understanding.
[2023-12-26] MEDS: TYLENOL 650 MG PO ×3 (02:20→18:19)
[2023-12-26] MEDS: ADVAIR HFA 230/21 MCG INHALER 2 PUFF INH ×2 (07:47→20:31)
[2023-12-26 07:50] LABS: % Basophils 0.2 % (0-2); % Eosinophils 0.5 % (0-6); % Immature Granulocytes 0.4 % (0-0.5); % Lymphocytes 9.8 % (20.5-51.1); % Monocytes 12.2 % (1.7-9.3); % Neutrophils 76.9 % (42.2-75.2); Absolute Eosinophils 0.1 10^3/uL (0-0.7); Absolute Immature Granulocytes 0.1 10^3/uL (0-0.05); Absolute Lymphocytes 1.4 10^3/uL (1.2-3.4); Absolute Monocytes 1.7 10^3/uL (0.1-0.6); Absolute Neutrophils 10.6 10^3/uL (1.4-6.5); Hematocrit 22.6 % (39.0-52.0); Hemoglobin 7.2 g/dL (13.0-18.0); Mean Corp Hgb Conc. 31.9 g/dL (33.0-37.0); Mean Corpuscular Hgb 26.7 pg (27.0-31.0); Mean Corpuscular Volume 83.7 fL (80.0-94.0); Mean Platelet Volume 9.8 fL (7.4-10.4); Nucleated Red Blood Cells % 0 % (-); Platelet Count 481 10^3/uL (130-400); Red Cell Dist. Width 16.2 % (11.5-14.5); White Blood Cell Count 13.8 10^3/uL (4.8-10.8)
--- NOTE | 2023-12-26 07:52 | W.PN.HOSP.TC ---
Today's Communication/Plan
-
see bold
Assessment / Plan
Assessment / Plan
Gen: NAD, AAOx3.
Eyes: EOMI, PERRLA, no scleral icterus.
Neck: supple.
CV: RRR, +S1/S2, no m/r/g.
Resp: CTAB, no rales, wheezes, or rhonchi.
Abd: +BS, soft, LUQ TTP, ND
Skin: No rashes.
Neuro: CN 2-12 intact
Psych: Normal mood and affect.
CXR: Relatively stable right midlung opacity in keeping with the patient's known lung cancer. No new acute cardiopulmonary process.
Symptomatic anemia due to acute to blood loss anemia due to acute UGIB due to gastric ulcers and ulcerated mass in the 2nd portion of the duodenum:
-EGD 12/25/23: Overall, patient had multiple areas that are likely
the source of his UGI bleeding, but the most likely
was the lesion in 2nd portion which may be a
metastatic lesion.
- Small hiatal hernia, otherwise no esophageal lesions.
- Non-bleeding gastric ulcers with no stigmata of
bleeding. Biopsied.
- Non-bleeding duodenal ulcers.
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
primary - oozing and likely the culprit for his black
stools and anemia requiring transfusion. Biopsied.
-transition from Protonix gtt to PPI BID
-note h/o recently diagnosed pulmonary adenocarcinoma with left adrenal metastases. Patient follows up with Dr. Portillo, still yet to receive chemotherapy. Port insertion later this week outpatient.
-s/p 1U pRBCs
-Hb 7.2, transfuse 2U pRBCs
Other problems:
Right foot drop, intermittent, will need EMG outpatient; PT/OT
Recent PNA: cont Doxy
Essential hypertension: Continue valsartan
COPD, not in exacerbation
Hyperlipidemia
GERD
Restless leg syndrome
FULL/SCDs
Anticipated Discharge: 24 - 48 hours
Subjective/Interval History
-
Date of Service: December 26, 2023
Objective Data
-
Labs:
Laboratory Results
12/25/23 12/26/23
21:03 07:11
WBC Pending
Hgb 7.2 L Pending
Hct 21.6 L Pending
Plt Count Pending
Sodium Pending
Potassium Pending
Chloride Pending
Carbon Dioxide Pending
BUN Pending
Creatinine Pending
Glucose Pending
Calcium Pending
Vital Signs:
Vital Signs
Temp Pulse Resp BP Pulse Ox
99.0 F 89 18 140/83 97
12/26/23 03:26 12/26/23 03:26 12/26/23 03:26 12/26/23 03:26 12/26/23 07:50
I&O
12/25/23 12/26/23 12/27/23
06:59 06:59 06:59
Intake Total 610 / 610 720 / 720
Output Total 1675 / 1675 2100 / 2100
Balance -1065 / -1065 -1380 / -1380
[2023-12-26 08:16] LABS: Blood Urea Nitrogen 12 mg/dl (9-20); Calcium 9.3 mg/dl (8.4-10.2); Carbon Dioxide 27 mmol/L (22-30); Chloride 102 mmol/L (98-107); Estimated Creatinine Clearance 71 ml/min; Glucose 101 mg/dl (70-99); Sodium 135 mmol/L (135-145); eGFR > 60.00
[2023-12-26] MEDS: VIBRAMYCIN 100 MG PO ×2 (08:38→21:29)
[2023-12-26] MEDS: FOLVITE 1 MG PO (08:38)
[2023-12-26] MEDS: OCUVITE SOFTGEL 1 CAP PO ×2 (08:38→21:29)
[2023-12-26] MEDS: LIPITOR 20 MG PO (08:38)
[2023-12-26] MEDS: THERAGRAN 1 TABLET PO (08:39)
[2023-12-26] MEDS: DIOVAN 320 MG PO (08:39)
[2023-12-26] MEDS: PROTONIX 40 MG PO ×2 (09:43→21:29)
--- NOTE | 2023-12-26 10:03 | W.PN.GI.CBS2 ---
Addendum entered and electronically signed by PATRICIA Calderon 12/27/23 05:46:
clarification-- noted with acute gastric ulcers and concern for malignant duodenal lesion on EGD.
Addendum entered and electronically signed by Mitra Maharaj DO 12/26/23 15:18:
per pathology: 2nd portion duodenum bx, its compatible with metastatic lung, similar in morphology to his previous lung biopsy. the stomach ulcer bx looks benign.
Addendum entered and electronically signed by Mitra Maharaj DO 12/26/23 12:07:
Patient seen and examined independently of PATRICIA. Agree with her note with my additions below
Patient denies any bowel movements today but did have a dark stool yesterday
Hemoglobin slowly trending down and the etiology of this is likely the duodenal lesion which is more likely a metastatic lesion versus a primary -biopsies pending
Continue transfusion support and likely to expedite chemotherapy -patient is known to Dr. Portillo and consulted sent for Dr. Wong to see patient today
I could Hemospray him but this will be very temporizing
Continue twice daily PPI for now in setting of multiple gastric and duodenal ulcers
Original Note:
Today's Communication / Plan
-
EGD as noted with concern for metastatic lesions in duodenum-- reviewed report with patient
await path
for 2 units PRBC's
trend hbg
cont PPI BID
cont diet add supplement BID with wt loss
Dr. Maharaj reviewed with oncology yesterday-- will place consult and review with oncology for continued plan-- if continued bleeding ? role for XRT vs Hemospray but hemospray treatment very short lived
Assessment / Plan
-
78-year-old male with past medical history of chronic cough, COPD, hypertension, GERD, restless leg syndrome with recent diagnosis of metastatic adenocarcinoma of the lung status post bronchoscopy 11/05/2023 as well as recent left adrenal mass biopsy
on 12/06/2023. He was seen 12/13 with now hbg and transfused. He is due for port placement 12/26 and who presents to the emergency room with progressive fatigue and right foot drop with further noted anemia and black stool. EGD 12/24 with concern
for mets with gastric ulcers and duodenal lesions.
12/25/23 [facility] EGD patient had multiple areas that are likely
the source of his UGI bleeding, but the most likely
was the lesion in 2nd portion which may be a
metastatic lesion.
- Small hiatal hernia, otherwise no esophageal lesions.
- Non-bleeding gastric ulcers with no stigmata of
bleeding. Biopsied.
- Non-bleeding duodenal ulcers.
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
primary - oozing and likely the culprit for his black
stools and anemia requiring transfusion. Biopsied.
bx pending
Impression:
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
Melena
Anemia
Metastatic adenocarcinoma lung Status post bronchoscopy 11/05/2023, has not started Tx.
Left adrenal mass status postbiopsy 12/06/2023
Recent PNA on 12/17/23-> started on Doxycycline
Right foot drop
wt loss
Plan:
EGD as noted with concern for metastatic lesions in duodenum-- reviewed report with patient
await path
for 2 units PRBC's
trend hbg
cont PPI BID
cont diet add supplement BID with wt loss
Dr. Maharaj reviewed with oncology yesterday-- will place consult and review with oncology for continued plan-- if continued bleeding ? role for XRT vs Hemospray but hemospray treatment very short lived
Subjective
Subjective
Date of Service: December 26, 2023
decreased appetite and reports wt loss, no stools today
Objective
Data Reviewed
Laboratory Data:
Laboratory Results
12/26/23 07:11
12/26/23 07:11
Laboratory Results
PT 15.1 Sec (11.4-14.6) H 12/25/23 05:07
INR 1.21 12/25/23 05:07
Total Bilirubin 0.5 mg/dl (0.2-1.3) 12/24/23 09:28
AST 30 U/L (17-59) 12/24/23 09:28
ALT 18 U/L (0-50) 12/24/23 09:28
Alkaline Phosphatase 148 U/L (38-126) H 12/24/23 09:28
Vital Signs and I&O:
Vital Signs
Temp Pulse Resp BP Pulse Ox
97.9 F 88 17 161/84 97
12/26/23 07:20 12/26/23 08:39 12/26/23 07:20 12/26/23 08:39 12/26/23 08:00
I&O
12/25/23 12/26/23 12/27/23
06:59 06:59 06:59
Intake Total 610 / 610 720 / 720
Output Total 1675 / 1675 2100 / 2100 250 / 250
Balance -1065 / -1065 -1380 / -1380 -250 / -250
Physical Exam
Physical Exam
HEENT: Anicteric and Moist mucous membranes
Cardiology: Normal Sinus Rhythm
Pulmonary: Clear
GI: Soft and Non Tender
Extremities: No Edema
Neuro: Non Focal
--- NOTE | 2023-12-26 10:30 | CM ---
Case management following for d/c planning
Chart reviewed. Spoke with pt
PT recommended HH - referred to [facility]
For transfusion today
CM will cont to follow for d/c needs
Plan - anticipate home with [facility] when medically stable
--- NOTE | 2023-12-26 12:21 | VNURNOTE ---
Home Health Liaison met with patient at 1145 to discuss [facility] nurse/therapy, visits, schedule and homebound status. Patient is agreeable and understands that visits at home will be 2-3 x per week to assess and teach medical management.
[facility] brochure provided with contact information. Patient is aware that [facility] will contact him for start of care in 1-2 days after discharge from .
[facility] referral completed in [facility].
--- NOTE | 2023-12-26 14:39 | PN.CDI ---
CDI
- -
CDI:
Physician Documentation Request
Admit Date: 12/24/23 13:41
Dear Elana GOMEZ,
Patient admitted with concern for malignant duodenal lesions.
12/25 GI note, '12/25/23 [facility] EGD- Non-bleeding duodenal ulcers.
Please clarify which of the following accurately represents the acuity of the duodenal ulcers:
Acute
Acute on chronic
Chronic
Other
Use of terms such as suspected, likely, concern for, or probable (associated with a specific diagnosis that is being evaluated, monitored, or treated as if it exists) are acceptable and can be coded in the inpatient setting, when documented at the
time of discharge.
Thank you,
Ivory STRINGER,RN,CCDS
CDI Specialist
Available via [place] text
Please use your independent medical judgment in providing your response.
--- NOTE | 2023-12-26 14:44 | PN.CDI ---
CDI
- -
CDI:
Physician Documentation Request
Admit Date: 12/24/23 13:41
Dear Elana GOMEZ,
Patient admitted with concern for malignant duodenal lesions.
12/25 GI note, '12/25/23 [facility] EGD- Non-bleeding gastric ulcers.'
Please clarify which of the following accurately represents the acuity of the gastric ulcers:
Acute
Acute on chronic
Chronic
Other
Use of terms such as suspected, likely, concern for, or probable (associated with a specific diagnosis that is being evaluated, monitored, or treated as if it exists) are acceptable and can be coded in the inpatient setting, when documented at the
time of discharge.
Thank you,
Ivory STRINGER,RN,CCDS
CDI Specialist
Available via [place] text
Please use your independent medical judgment in providing your response.
[2023-12-26] MEDS: APRESOLINE 5 MG IV (20:32)
[2023-12-26] MEDS: REQUIP 0.5 MG PO (21:29)
[2023-12-26 23:20] LABS: Transferrin 157 mg/dL (200-360)
[2023-12-27] VITALS (12 sets, daily range): BP systolic 83–164; BP diastolic 75–96; PULSE 92; O2SAT 95; BMI 21.2
[2023-12-27] MEDS: TYLENOL 650 MG PO ×4 (00:06→22:13)
[2023-12-27 06:05] LABS: Mean Corpuscular Volume 81.8 fL (80.0-94.0); Mean Platelet Volume 9.5 fL (7.4-10.4); Platelet Count 498 10^3/uL (130-400); Red Cell Dist. Width 15.9 % (11.5-14.5)
[2023-12-27 06:40] LABS: Hemoglobin 8.9 g/dL (13.0-18.0)
[2023-12-27] MEDS: ADVAIR HFA 230/21 MCG INHALER 2 PUFF INH ×2 (07:27→20:02)
[2023-12-27] MEDS: VIBRAMYCIN 100 MG PO ×2 (07:59→21:01)
[2023-12-27] MEDS: THERAGRAN 1 TABLET PO (07:59)
[2023-12-27] MEDS: PROTONIX 40 MG PO ×2 (08:00→21:01)
[2023-12-27] MEDS: OCUVITE SOFTGEL 1 CAP PO ×2 (08:00→21:01)
[2023-12-27] MEDS: LIPITOR 20 MG PO (08:00)
[2023-12-27] MEDS: DIOVAN 320 MG PO (08:00)
[2023-12-27] MEDS: FOLVITE 1 MG PO (08:00)
--- NOTE | 2023-12-27 09:40 | W.PN.HOSP.TC ---
Addendum entered and electronically signed by Demetrio Gilliam MD 12/27/23 12:05:
Case discussed with Drs. Maharaj and Bandar. Plan is for discharge today (after PORT placement) with outpatient appointment on December 31, 2023 for a CBC and subsequent transfusion of packed red blood cells if needed.
Total time spent on d/c = 34 min. This included today's physical exam, progress note, review of laboratory and diagnostic data, preparation of discharge documents and prescriptions, and discussions about the pt's hospital course and discharge plan
with the patient and other medical secretary receptionist involved in the patient's care.
Original Note:
Today's Communication/Plan
-
See bold
Assessment / Plan
Assessment / Plan
Gen: NAD, AAOx3.
Eyes: EOMI, PERRLA, no scleral icterus.
Neck: supple.
CV: Remains RRR, +S1/S2, no m/r/g.
Resp: Remains CTAB, no rales, wheezes, or rhonchi.
Abd: +BS, soft, NT to light palpation, ND
Skin: No rashes.
Neuro: Remains CN 2-12 intact
Psych: Normal mood and affect.
CXR: Relatively stable right midlung opacity in keeping with the patient's known lung cancer. No new acute cardiopulmonary process.
Symptomatic anemia due to acute to blood loss anemia due to acute UGIB due to gastric ulcers and ulcerated mass in the 2nd portion of the duodenum:
-EGD 12/25/23: Overall, patient had multiple areas that are likely
the source of his UGI bleeding, but the most likely
was the lesion in 2nd portion which may be a
metastatic lesion.
- Small hiatal hernia, otherwise no esophageal lesions.
- Non-bleeding gastric ulcers with no stigmata of
bleeding. Biopsied.
- Non-bleeding duodenal ulcers.
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
primary - oozing and likely the culprit for his black
stools and anemia requiring transfusion. Biopsied.
-was on Protonix gtt, now on PPI BID
-note h/o recently diagnosed pulmonary adenocarcinoma with left adrenal metastases. Patient follows up with Dr. Portillo, still yet to receive chemotherapy. Port insertion later this week outpatient.
-s/p 3U pRBCs
-Case discussed at length with Dr. Portillo. Patient will receive his PORT today in IR.
Other problems:
Right foot drop, intermittent, will need EMG outpatient; PT/OT
Recent PNA: cont Doxy
Essential hypertension: Continue valsartan
COPD, not in exacerbation
Hyperlipidemia
GERD
Restless leg syndrome
FULL/SCDs
Anticipated Discharge: Within 24 hours
Subjective/Interval History
-
Date of Service: December 27, 2023
Patient reports that since I I rounded on him yesterday he has had melena. Denies chest pain, shortness of breath.
Objective Data
-
Labs:
Laboratory Results
12/27/23
05:17
WBC 15.0 H
Hgb 8.9 L D
Hct 27.0 L
Plt Count 498 H
Vital Signs:
Vital Signs
Temp Pulse Resp BP Pulse Ox
98.1 F 92 16 141/77 94
12/27/23 07:25 12/27/23 08:00 12/27/23 07:33 12/27/23 08:00 12/27/23 08:00
I&O
12/26/23 12/27/23 12/28/23
06:59 06:59 06:59
Intake Total 720 / 720 1640 / 1640
Output Total 2100 / 2100 1400 / 1400
Balance -1380 / -1380 240 / 240
--- NOTE | 2023-12-27 10:34 | CON.ONC ---
Impression
Impression
Metastatic non-small cell lung carcinoma
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
Anemia
Plan
Plan
Continue transfusion
Replete iron as needed
Initiate systemic therapy
Risk of perforation reviewed with the patient
No bevacizumab
Port placement today
Follow-up JUANPABLO
Patient History
History of Present Illness
78-year male with past medical history of essential hypertension, COPD, GERD, restless leg syndrome, pulmonary adenocarcinoma, left adrenal metastases, anemia came to the hospital with generalized weakness and right foot drop. Was found to be
anemic in the ED. Patient was recently discharged with outpatient GI follow-up for his anemia. In ED his hemoglobin was found to be 7.3, all discharge last week hemoglobin was 9.8. He denies any abdominal pain. Denies any chest pain, shortness
of breath. Denies any nausea, vomiting, diarrhea, constipation. EGD performed revealed evidence of an erosive mass biopsy-proven to be consistent with a metastatic lesion from non-small cell lung carcinoma in the duodenum. Patient was scheduled
for port placement to initiate systemic therapy.
Past-Medical/Surgical History
Past Medical History
Past Medical History: Cancer (Lung), COPD, HTN, Hypercholesterolemia and Other (Restless leg, left adrenal metastases)
Past Surgical History: None
Social History
Tobacco: Former Smoker
Alcohol: None
Family History
Family History: Not pertinent
Patient Medication
�Medication �Instructions �Recorded �Confirmed �Last Taken �Type
atorvastatin 20 mg tablet 20 mg PO DAILY High Cholesterol 11/02/23 12/24/23 12/23/23 History
ropinirole 0.5 mg tablet 0.5 mg PO HS Restless Leg Syndrome 11/02/23 12/24/23 12/23/23 History
valsartan 320 mg tablet 320 mg PO DAILY Blood Pressure 11/02/23 12/24/23 12/23/23 History
acetaminophen 325 mg tablet 650 mg PO BIDPRN PRN mild pain 11/05/23 12/24/23 12/23/23 History
(Tylenol)
fluticasone 500 mcg-salmeterol 50 1 ea inhalation R HS 12/14/23 12/24/23 12/23/23 History
mcg/dose blistr powdr for Lung/Breathing Issues
inhalation (Wixela Inhub)
folic acid 1 mg tablet 1 mg PO DAILY Supplement 12/14/23 12/24/23 12/23/23 History
vit C 250 mg-vit E 90 mg-zinc 40 1 tab PO BID Supplement 12/14/23 12/24/23 12/23/23 History
mg-copper 1 [id number]
capsule (PreserVision AREDS-2)
doxycycline hyclate 100 mg capsule 100 mg PO BID Infection 12/24/23 12/24/23 12/23/23 History
guaifenesin 100 mg/5 mL oral liquid 200 mg PO Q4HPRN PRN cough 12/24/23 12/24/23 Unknown History
therapeutic multivitamin 1 tab PO DAILY Supplement 12/24/23 12/24/23 12/23/23 History
Active Medications
Generic Name Dose Route Start Last Admin
Trade Name Freq PRN Reason Stop Dose Admin
Acetaminophen 650 mg 12/26/23 09:02 12/27/23 06:13
Acetaminophen 325 Mg Tablet PO 01/23/24 09:01 650 mg
Q6HPRN PRN Administration
mild pain
Atorvastatin Calcium 20 mg 12/25/23 08:00 12/27/23 08:00
Atorvastatin (Lipitor) 20 Mg Tablet PO 01/22/24 07:59 20 mg
DAILY ODILIA Administration
Doxycycline Hyclate 100 mg 12/24/23 20:00 12/27/23 07:59
Doxycycline 100 Mg Capsule PO 100 mg
BID ODILIA Administration
Folic Acid 1 mg 12/25/23 08:00 12/27/23 08:00
Folic Acid 1 Mg Tablet PO 01/22/24 07:59 1 mg
DAILY ODILIA Administration
Guaifenesin 200 mg 12/24/23 15:29
Guaifenesin Oral Solution (200 Mg/10 Ml) Cup PO 01/21/24 15:28
Q4HPRN PRN
cough
Hydralazine HCl 5 mg 12/24/23 13:27 12/26/23 20:32
Hydralazine 20 Mg/Ml Vial IV 01/21/24 13:26 5 mg
Q6HPRN PRN Administration
SBP>160
Multivitamins Therapeutic 1 tablet 12/25/23 08:00 12/27/23 07:59
Multivitamin Tablet PO 01/22/24 07:59 1 tablet
DAILY ODILIA Administration
Pantoprazole Sodium 40 mg 12/26/23 10:00 12/27/23 08:00
Pantoprazole 40 Mg Delayed Release Tablet PO 01/23/24 09:59 40 mg
BID ODILIA Administration
Ropinirole HCl 0.5 mg 12/24/23 22:00 12/26/23 21:29
Ropinirole 1 Mg Tablet PO 01/21/24 21:59 0.5 mg
HS ODILIA Administration
Fluticasone/Salmeterol 2 puff 12/24/23 20:00 12/27/23 07:27
Advair Hfa 230/21 Inhaler INH 01/21/24 19:59 2 puff
R BID ODILIA Administration
Sodium Chloride 0 flush 12/24/23 14:00
Sodium Chloride 0.9% (Flush) Syringe IV 01/21/24 13:59
PER PROTOCOL ODILIA
Valsartan 320 mg 12/25/23 08:00 12/27/23 08:00
Valsartan 80 Mg Tablet PO 01/22/24 07:59 320 mg
DAILY ODILIA Administration
Vitamin C/Vitamin E 1 cap 12/24/23 20:00 12/27/23 08:00
Vit C/Vit E/Lutein/Min/Norman-3 (Ocuvite) Capsule PO 01/21/24 19:59 1 cap
BID ODILIA Administration
Review of Systems
-
12 point review systems fails to elicit additional complaints other than those reviewed in HPI
Physical Exam
-
Physical Exam
General: Well Nourished and No Apparent Distress
HEENT: Anicteric and Moist mucous membranes
Respiratory: Clear and Non Labored Respirations; No Wheezes
Cardiac: S1/S2 and Regular Rhythm
Breast: Deferred by me
GI: Soft, Non Tender and Non Distended
Genito-urinary: No [place]
Musculoskeletal: Edema, Left Lower Extremity and Edema, Right Lower Extremity
Neuro: Awake, Alert, Oriented and AO x 3
Psych: Calm and Intact Judgment/Insight
Labs
Lab Results
WBC 15.0 10^3/uL (4.8-10.8) H 12/27/23 05:17
RBC 3.30 10^6/uL (4.70-6.10) L 12/27/23 05:17
Hgb 8.9 g/dL (13.0-18.0) L D 12/27/23 05:17
Hct 27.0 % (39.0-52.0) L 12/27/23 05:17
MCV 81.8 fL (80.0-94.0) 12/27/23 05:17
MCH 27.0 pg (27.0-31.0) 12/27/23 05:17
MCHC 33.0 g/dL (33.0-37.0) 12/27/23 05:17
RDW 15.9 % (11.5-14.5) H 12/27/23 05:17
Plt Count 498 10^3/uL (130-400) H 12/27/23 05:17
MPV 9.5 fL (7.4-10.4) 12/27/23 05:17
Abs Immat Gran (auto) 0.1 10^3/uL (0-0.05) H 12/26/23 07:11
Absolute Neuts (auto) 10.6 10^3/uL (1.4-6.5) H 12/26/23 07:11
Absolute Lymphs (auto) 1.4 10^3/uL (1.2-3.4) 12/26/23 07:11
Absolute Monos (auto) 1.7 10^3/uL (0.1-0.6) H 12/26/23 07:11
Absolute Eos (auto) 0.1 10^3/uL (0-0.7) 12/26/23 07:11
Absolute Basos (auto) 0.0 10^3/uL (0-0.2) 12/26/23 07:11
Immature Gran % 0.4 % (0-0.5) 12/26/23 07:11
Neutrophils % 76.9 % (42.2-75.2) H 12/26/23 07:11
Lymphocytes % 9.8 % (20.5-51.1) L 12/26/23 07:11
Monocytes % 12.2 % (1.7-9.3) H 12/26/23 07:11
Eosinophils % 0.5 % (0-6) 12/26/23 07:11
Basophils % 0.2 % (0-2) 12/26/23 07:11
Creatinine 0.8 mg/dL (0.7-1.3) 12/26/23 07:11
Vital Signs
Vital Signs
Temp Pulse Resp BP Pulse Ox
98.1 F 92 16 141/77 94
12/27/23 07:25 12/27/23 08:00 12/27/23 07:33 12/27/23 08:00 12/27/23 08:00
--- NOTE | 2023-12-27 13:22 | W.PN.UPDATE ---
Update Note
Progress Note Update
Patient is having moderate sedation with his port placement. Therefore he cannot drive today. He also does not have a ride home today. Discharge will take place tomorrow.
--- NOTE | 2023-12-27 16:14 | CM ---
Port placement today. Anticipate discharge on 12/28/23 with [facility] and PT services. Patient has car on premises. IMM signed.
--- NOTE | 2023-12-27 20:23 | W.PN.GI.CBS2 ---
Today's Communication / Plan
-
GI will sign off. care per oncology
Assessment / Plan
-
78-year-old male with past medical history of chronic cough, COPD, hypertension, GERD, restless leg syndrome with recent diagnosis of metastatic adenocarcinoma of the lung status post bronchoscopy 11/05/2023 as well as recent left adrenal mass biopsy
on 12/06/2023. He was seen 12/13 with now hbg and transfused. He is due for port placement 12/26 and who presents to the emergency room with progressive fatigue and right foot drop with further noted anemia and black stool. EGD 12/24 with concern
for mets with gastric ulcers and duodenal lesions.
12/25/23 [facility] EGD patient had multiple areas that are likely
the source of his UGI bleeding, but the most likely
was the lesion in 2nd portion which may be a
metastatic lesion.
- Small hiatal hernia, otherwise no esophageal lesions.
- Non-bleeding gastric ulcers with no stigmata of
bleeding. Biopsied.
- Non-bleeding duodenal ulcers.
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
primary - oozing and likely the culprit for his black
stools and anemia requiring transfusion. Biopsied.
bx pending
Impression:
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
Melena
Anemia
Metastatic adenocarcinoma lung Status post bronchoscopy 11/05/2023, has not started Tx.
Left adrenal mass status postbiopsy 12/06/2023
Recent PNA on 12/17/23-> started on Doxycycline
Right foot drop
wt loss
12/27/23 - Patient is aware the lesion in the duodenum is metastatic lung cancer and will likely continue to ooze and bleed and cause anemia. I discussed his case with Dr. Portillo who is his primary oncologist who will see him quickly to follow his
hemoglobin, adequately transfuse as needed get him started on therapy. I discussed options endoscopically for limited and Hemospray would be very temporary for hemostasis. Avoid NSAIDs. Continue twice daily PPI for 1 month, then once daily
indefinitely because he does have other gastric ulcers.
Subjective
Subjective
Date of Service: December 27, 2023
1 small dark brown stool that is formed, otherwise feels fine. Got his port today
Objective
Data Reviewed
Laboratory Data:
Laboratory Results
12/27/23 05:17
12/26/23 07:11
Laboratory Results
PT 15.1 Sec (11.4-14.6) H 12/25/23 05:07
INR 1.21 12/25/23 05:07
Total Bilirubin 0.5 mg/dl (0.2-1.3) 12/24/23 09:28
AST 30 U/L (17-59) 12/24/23 09:28
ALT 18 U/L (0-50) 12/24/23 09:28
Alkaline Phosphatase 148 U/L (38-126) H 12/24/23 09:28
Vital Signs and I&O:
Vital Signs
Temp Pulse Resp BP Pulse Ox
98.5 F 88 16 154/89 95
12/27/23 19:29 12/27/23 20:04 12/27/23 20:04 12/27/23 19:29 12/27/23 20:04
I&O
12/26/23 12/27/23 12/28/23
06:59 06:59 06:59
Intake Total 720 / 720 1640 / 1640 660 / 660
Output Total 2100 / 2100 1400 / 1400 200 / 200
Balance -1380 / -1380 240 / 240 460 / 460
Physical Exam
Physical Exam
HEENT: Anicteric
GI: Soft, Non Distended and Non Tender
Neuro: Non Focal
[2023-12-27] MEDS: REQUIP 0.5 MG PO (21:01)
[2023-12-28 03:29] VITALS: BP 142/83
[2023-12-28] MEDS: TYLENOL 650 MG PO ×2 (04:53→11:10)
[2023-12-28 05:50] VITALS: BMI 21.2
[2023-12-28 07:26] VITALS: BP 149/83
--- NOTE | 2023-12-28 07:31 | W.PN.HOSP.TC ---
Addendum entered and electronically signed by Demetrio Gilliam MD 12/28/23 09:05:
Total time spent on d/c = 31 min. This included today's physical exam, progress note, review of laboratory and diagnostic data, preparation of discharge documents and prescriptions, and discussions about the pt's hospital course and discharge plan
with the patient and other clinical laboratory medical director involved in the patient's care.
Original Note:
Today's Communication/Plan
-
see bold
Assessment / Plan
Assessment / Plan
Gen: NAD, AAOx3.
Eyes: EOMI, PERRLA, no scleral icterus.
Neck: supple.
CV: Continues to remain RRR, +S1/S2, no m/r/g.
Resp: Continues to remain CTAB, no rales, wheezes, or rhonchi.
Abd: +BS, soft, NT to light palpation, ND
Skin: No rashes.
Neuro: Continues to remain CN 2-12 intact
Psych: Normal mood and affect.
CXR: Relatively stable right midlung opacity in keeping with the patient's known lung cancer. No new acute cardiopulmonary process.
Symptomatic anemia due to acute to blood loss anemia due to acute UGIB due to gastric ulcers and ulcerated mass in the 2nd portion of the duodenum:
-EGD 12/25/23: Overall, patient had multiple areas that are likely
the source of his UGI bleeding, but the most likely
was the lesion in 2nd portion which may be a
metastatic lesion.
- Small hiatal hernia, otherwise no esophageal lesions.
- Non-bleeding gastric ulcers with no stigmata of
bleeding. Biopsied.
- Non-bleeding duodenal ulcers.
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
primary - oozing and likely the culprit for his black
stools and anemia requiring transfusion. Biopsied.
-was on Protonix gtt, now on PPI BID
-note h/o recently diagnosed pulmonary adenocarcinoma with left adrenal metastases. Patient follows up with Dr. Portillo, still yet to receive chemotherapy. Port insertion later this week outpatient.
-s/p 3U pRBCs
-PORT placed 12/27/23
-check Hb prior to d/c
Other problems:
Right foot drop, intermittent, will need EMG outpatient; PT/OT
Recent PNA: cont Doxy
Essential hypertension: Continue valsartan
COPD, not in exacerbation
Hyperlipidemia
GERD
Restless leg syndrome
FULL/SCDs
Anticipated Discharge: Today
Subjective/Interval History
-
Date of Service: December 28, 2023
Denies chest pain or shortness of breath. Reports yesterday he had melanotic stool.
Objective Data
-
Vital Signs:
Vital Signs
Temp Pulse Resp BP Pulse Ox
98.1 F 82 14 142/83 95
12/28/23 03:29 12/28/23 03:29 12/28/23 03:29 12/28/23 03:29 12/28/23 03:29
I&O
12/27/23 12/28/23 12/29/23
06:59 06:59 06:59
Intake Total 1640 / 1640 1140 / 1140
Output Total 1400 / 1400 800 / 800
Balance 240 / 240 340 / 340
[2023-12-28] MEDS: ADVAIR HFA 230/21 MCG INHALER 2 PUFF INH (07:37)
[2023-12-28 07:47] LABS: Hematocrit 28.5 % (39.0-52.0); Hemoglobin 9.4 g/dL (13.0-18.0); Mean Corpuscular Hgb 27.6 pg (27.0-31.0); Mean Corpuscular Volume 83.6 fL (80.0-94.0); Mean Platelet Volume 9.4 fL (7.4-10.4); Platelet Count 480 10^3/uL (130-400); Red Blood Cell Count 3.41 10^6/uL (4.70-6.10); Red Cell Dist. Width 15.9 % (11.5-14.5); White Blood Cell Count 15.4 10^3/uL (4.8-10.8)
--- NOTE | 2023-12-28 09:34 | W.DCSUMMARY ---
Discharge Summary
Discharge Data
Date of Admission: 12/24/23
Date of Discharge: 12/28/23
-
Pending Results: No
Hospital Course
Primary diagnoses:
Symptomatic anemia due to acute to blood loss anemia due to acute upper gastrointestinal bleeding due to gastric ulcers and ulcerated mass in the 2nd portion of the duodenum
Secondary diagnoses:
Pulmonary adenocarcinoma with left adrenal metastases
Right foot drop, intermittent
Recent pneumonia
Essential hypertension
Chronic obstructive pulmonary disease
Hyperlipidemia
Gastroesophageal reflux disease
Restless leg syndrome
Consultants:
Gastroenterology
Hematology
Interventional radiology
Imaging:
CXR: Relatively stable right midlung opacity in keeping with the patient's known lung cancer. No new acute cardiopulmonary process.
78-year-old male presented with chief complaints of right foot drop and weakness as outlined H&P done on admission. Hospital course by problem list:
Symptomatic anemia due to acute to blood loss anemia due to acute UGIB due to gastric ulcers and ulcerated mass in the 2nd portion of the duodenum: On admission the patient's hemoglobin was 7.3. He was initiated on Protonix drip. The patient had a
history of recently diagnosed pulmonary adenocarcinoma with left adrenal metastases. The patient had an EGD on 12/25/23 showing:
Overall, patient had multiple areas that are likely
the source of his UGI bleeding, but the most likely
was the lesion in 2nd portion which may be a
metastatic lesion.
- Small hiatal hernia, otherwise no esophageal lesions.
- Non-bleeding gastric ulcers with no stigmata of
bleeding. Biopsied.
- Non-bleeding duodenal ulcers.
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
primary - oozing and likely the culprit for his black
stools and anemia requiring transfusion. Biopsied.
Patient was transitioned to Protonix twice daily. He received 3 units packed red blood cells while hospitalized. He had a port placed on December 27, 2023. Hemoglobin was 9.4 at the time of discharge and the patient was discharged in medically stable
condition.
Discharge Plan
-
Patient Disposition: Home (Routine Discharge)
Discharge Diagnosis/Procedures: Symptomatic anemia due to acute to blood loss anemia due to acute UGIB due to gastric ulcers and ulcerated mass in the 2nd portion of the duodenum
Condition: Good
Diet: Regular
Activity: As tolerated
Driving Restrictions: As prior to admission
Bathing Restrictions: None
Blood Work: CBC via Dr. Portillo's office on 12/31/23
Activity Restrictions/Additional Instructions:
You have a type and cross scheduled for the morning of December 31, 2023 Dr. Portillo's office.
Referrals:
Brian White MD [Family Provider] - in less than 1 week
Prescriptions:
New
pantoprazole 40 mg Tablet,Delayed Release (Dr/Ec)
40 mg PO BID Qty: 60 0RF
Continued
acetaminophen [Tylenol] 325 mg Tablet
650 mg PO BIDPRN PRN (Reason: mild pain)
atorvastatin 20 mg Tablet
20 mg PO DAILY
ropinirole 0.5 mg Tablet
0.5 mg PO HS
valsartan 320 mg Tablet
320 mg PO DAILY
folic acid 1 mg tablet
1 mg PO DAILY
PreserVision AREDS-2 250-90-40-1 mg Capsule
1 tab PO BID
fluticasone propion-salmeterol [Wixela Inhub] 500-50 mcg/dose blister with device
1 ea INHALATION R HS
therapeutic multivitamin Tablet
1 tab PO DAILY
guaifenesin 100 mg/5 mL Liquid
200 mg PO Q4HPRN PRN (Reason: cough)
doxycycline hyclate 100 mg capsule
100 mg PO BID
Discharge Orders:
Discharge Patient (As Directed); Ordered 12/28/23
Ordered By: Demetrio Gilliam
Discharge Date and Time
Print Language: BULGARIAN
--- NOTE | 2023-12-28 09:49 | W.PN.ONC ---
Today's Communication / Plan
-
Type and cross Sunday morning with anticipated transfusion if needed on Sunday
Port placed
Discussed with radiation consultation to expedite palliative effect on the duodenum
Initiate systemic therapy
Risk of perforation reviewed with the patient
No bevacizumab
Hemoglobin stable 9.4 g/dL agree with plans for discharge
Follow-up arranged
Impression
Impression
Metastatic non-small cell lung carcinoma
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
Anemia
Subjective/Objective
Subjective/Objective
Feels well no stool this morning.
Vital Signs:
Vital Signs
Temp Pulse Resp BP Pulse Ox
99.4 F 86 16 149/83 96
12/28/23 08:39 12/28/23 07:41 12/28/23 07:41 12/28/23 07:26 12/28/23 07:41
PE: Unchanged
Lab Results:
Laboratory Data
WBC 15.4 10^3/uL (4.8-10.8) H 12/28/23 07:39
Hgb 9.4 g/dL (13.0-18.0) L 12/28/23 07:39
Plt Count 480 10^3/uL (130-400) H 12/28/23 07:39
PT 15.1 Sec (11.4-14.6) H 12/25/23 05:07
INR 1.21 12/25/23 05:07
eGFR > 60.00 12/26/23 07:11
Orders
Orders
Orders From Last 24 Hours
12/27/23 10:32
Consult Interventional Radiology [IRAD CONSULT] Urgent
[2023-12-28] MEDS: FOLVITE 1 MG PO (10:07)
[2023-12-28] MEDS: PROTONIX 40 MG PO (10:07)
[2023-12-28] MEDS: LIPITOR 20 MG PO (10:07)
[2023-12-28] MEDS: THERAGRAN 1 TABLET PO (10:08)
[2023-12-28] MEDS: DIOVAN 320 MG PO (10:08)
[2023-12-28] MEDS: OCUVITE SOFTGEL 1 CAP PO (10:08)
[2023-12-28] MEDS: VIBRAMYCIN 100 MG PO (10:09)
[2023-12-28 11:09] VITALS: BP 141/88
--- NOTE | 2023-12-28 11:16 | CM ---
met with patient at bedside.hgb 9.4 patient is stable for dc home with [facility].patient signed imm letter.[facility]am[facility] to transport home.
== END 2023-12-28 12:12 | disposition home health service (06) | DRG 356 ==
LOC: 2 SOUTH 13:41
PROVIDERS: Internal Medicine; Nurse Practitioner; Nurse Practitioner Adult Health; Radiology Diagnostic Radiology; ADMITTING PHYSICIAN Internal Medicine; ATTENDING PHYSICIAN Internal Medicine; CONSULT PHYSICIAN Internal Medicine Gastroenterology; EMERGENCY PHYSICIAN Emergency Medicine; FAMILY PHYSICIAN Family Medicine; OTHER PHYSICIAN Internal Medicine Hematology & Oncology
PROC: 30233N1 Transfusion of Nonautologous Red Blood Cells into Peripheral Vein, Percutaneous Approach (ICD-10-PCS; 2023-12-24)
PROC: 0DB78ZX Excision of Stomach, Pylorus, Via Natural or Artificial Opening Endoscopic, Diagnostic (ICD-10-PCS; 2023-12-25)
PROC: 0DB98ZX Excision of Duodenum, Via Natural or Artificial Opening Endoscopic, Diagnostic (ICD-10-PCS; 2023-12-25)
PROC: 0JH60WZ Insertion of Totally Implantable Vascular Access Device into Chest Subcutaneous Tissue and Fascia, Open Approach (ICD-10-PCS; 2023-12-27)
PROC: 02HV33Z Insertion of Infusion Device into Superior Vena Cava, Percutaneous Approach (ICD-10-PCS; 2023-12-27)
DX: C78.4 Secondary malignant neoplasm of small intestine (principal); K25.0 Acute gastric ulcer with hemorrhage; K26.4 Chronic or unspecified duodenal ulcer with hemorrhage; D62 Acute posthemorrhagic anemia; C79.72 Secondary malignant neoplasm of left adrenal gland; C34.91 Malignant neoplasm of unspecified part of right bronchus or lung; D63.0 Anemia in neoplastic disease; J44.9 Chronic obstructive pulmonary disease, unspecified; I10 Essential (primary) hypertension; K21.9 Gastro-esophageal reflux disease without esophagitis; G25.81 Restless legs syndrome; E78.00 Pure hypercholesterolemia, unspecified; K44.9 Diaphragmatic hernia without obstruction or gangrene; M21.371 Foot drop, right foot; Z79.899 Other long term (current) drug therapy; Z87.891 Personal history of nicotine dependence
CPT/HCPCS: 88305; 36561; 71046; 76937; 77001; 80048; 80053; 82607; 82728; 82746; 83540; 83550; 84466; 85014; 85018; 85025; 85027; 85610; 86803; 86850; 86900; 86901; 86920; 88342; 93971; 94640; 97116; 97162; 97166; 99152; 99153; 99285; C1788; P9016

== ENCOUNTER 2024-01-01 07:46 | Outpatient (RCR) | payer OTHER, SELFPAY ==
[2023-12-31 11:24] LABS: % Basophils 0.5 % (0-2); % Eosinophils 0.7 % (0-6); % Immature Granulocytes 0.4 % (0-0.5); % Lymphocytes 9.7 % (20.5-51.1); % Monocytes 9.2 % (1.7-9.3); % Neutrophils 79.5 % (42.2-75.2); Absolute Basophils 0.1 10^3/uL (0-0.2); Absolute Eosinophils 0.1 10^3/uL (0-0.7); Absolute Immature Granulocytes 0.1 10^3/uL (0-0.05); Absolute Lymphocytes 1.5 10^3/uL (1.2-3.4); Absolute Monocytes 1.4 10^3/uL (0.1-0.6); Hematocrit 30.8 % (39.0-52.0); Mean Corp Hgb Conc. 32.5 g/dL (33.0-37.0); Mean Corpuscular Hgb 27.2 pg (27.0-31.0); Mean Corpuscular Volume 83.9 fL (80.0-94.0); Mean Platelet Volume 9.9 fL (7.4-10.4); Nucleated Red Blood Cells % 0 % (-); Platelet Count 600 10^3/uL (130-400); Red Blood Cell Count 3.67 10^6/uL (4.70-6.10); Red Cell Dist. Width 16.1 % (11.5-14.5); White Blood Cell Count 15.1 10^3/uL (4.8-10.8)
[2024-01-01] VITALS (7 sets, daily range): BP systolic 143–158; BP diastolic 72–91
== END 2024-01-11 14:55 | disposition home or self-care (01) ==
LOC: OID 07:46
PROVIDERS: ATTENDING PHYSICIAN Internal Medicine Hematology & Oncology; FAMILY PHYSICIAN Family Medicine
DX: C34.2 Malignant neoplasm of middle lobe, bronchus or lung (principal); C79.72 Secondary malignant neoplasm of left adrenal gland
CPT/HCPCS: 36415; 36430; 85025; 86850; 86900; 86901; 86920; P9016

== ENCOUNTER 2024-01-16 08:43 | Outpatient (RCR) | payer OTHER, SELFPAY ==
[2024-01-16 09:12] VITALS: BMI 21.6
[2024-01-16 09:48] VITALS: BP 117/68
[2024-01-16] MEDS: KEYTRUDA 108 MG IV (09:57)
[2024-01-16] MEDS: EMEND 150 MG IV (10:47)
[2024-01-16 11:05] LABS: TSH Reflex To Free T4 0.18 uIU/ml (0.47-4.68)
[2024-01-16] MEDS: DECADRON 51 MG IV (11:24)
[2024-01-16] MEDS: ALOXI 5 MG IV (11:24)
[2024-01-16 11:34] LABS: Free T4 1.82 ng/dl (0.78-2.19)
[2024-01-16] MEDS: ALIMTA/PEMETREXED 100 MG IV (12:13)
[2024-01-16] MEDS: PARAPLATIN 281.8 MG IV (12:41)
[2024-01-16 12:45] VITALS: BP 135/75
[2024-01-16 15:00] VITALS: BP 150/80
== END 2024-01-23 23:59 | disposition home or self-care (01) ==
LOC: OID 08:43
PROVIDERS: ATTENDING PHYSICIAN Internal Medicine Hematology & Oncology; FAMILY PHYSICIAN Family Medicine
DX: C34.2 Malignant neoplasm of middle lobe, bronchus or lung (principal); C79.72 Secondary malignant neoplasm of left adrenal gland
CPT/HCPCS: 84439; 84443; 96367; 96374; 96375; 96413; 96417; J1453; J2469; J9045; J9271; J9305

== ENCOUNTER 2024-01-18 16:14 | Inpatient (IN) | payer OTHER, SELFPAY ==
[2024-01-18] VITALS (15 sets, daily range): BP systolic 78–116; BP diastolic 52–101; BMI 21.6; BMI 21.7
--- NOTE | 2024-01-18 10:59 | ED.GENMED ---
History of Present Illness
General
Chief Complaint: Weakness
Time Seen by Provider: 01/18/24 10:55
History of Present Illness
History of Present Illness:
78-year-old male with history of lung cancer presents to the emergency department for evaluation of generalized fatigue and weakness. He started chemotherapy treatments 2 days ago and since that time has had diarrhea on a nearly hourly basis. He
states he has been able to tolerate oral fluids however feels increasingly weak. He is noted to be hypotensive in triage. Denies any fevers or abdominal pain. No bloody diarrhea.
Past History
Past History
ED Past Medical History: Cancer (Metastatic lung cancer) and HTN
ED Past Surgical History: Other
Social History
Tobacco: Former smoker
Alcohol: Other
Drug: None
Personal:
Living: with family
Employment: Other
Family History
Family History: Other
Review of Systems
Review of Systems
Allergies reviewed?: Yes
All Other Systems: ROS reviewed and negative except as documented in HPI and ROS
Phy Exam
Physical Exam
Physical Exam:
GEN: Well appearing, NAD, WDWN
HEENT: Oral mucosa moist, no scleral icterus
Cardiac: Mildly tachycardic, regular
Lung: No respiratory distress, no tachypnea
Abdomen: Soft, nontender
MSK: No gross deformity or injuries
Skin: Good color, no pallor or jaundice, no rashes
Neuro: AO x3, moves all extremities freely
Psych: Calm, cooperative
Course
Orders/Labs/Results
Orders:
Orders
01/18/24 10:59
0.9% Sodium Chloride 1000 ml [Nss] 1,000 ml IV BOLUS
01/18/24 11:24
Complete Blood Count/With Diff Urgent
Comprehensive Metabolic Panel Urgent
Magnesium Urgent
01/18/24 12:14
0.9% Sodium Chloride 1000 ml [Nss] 1,000 ml IV BOLUS
01/18/24 13:30
Pegfilgrastim-Apgf [Nyvepria] 6 mg SC ONCE ONE
Abnormal Lab Results
01/18/24
11:24
WBC 11.1 H 10^3/uL
(4.8-10.8)
RBC 3.91 L 10^6/uL
(4.70-6.10)
Hgb 10.7 L g/dL
(13.0-18.0)
Hct 32.0 L %
(39.0-52.0)
RDW 16.9 H %
(11.5-14.5)
Plt Count 567 H 10^3/uL
(130-400)
Abs Immat Gran (auto) 0.7 H 10^3/uL
(0-0.05)
Absolute Neuts (auto) 9.4 H 10^3/uL
(1.4-6.5)
Absolute Lymphs (auto) 0.4 L 10^3/uL
(1.2-3.4)
Immature Gran % 6.4 H %
(0-0.5)
Neutrophils % 84.8 H %
(42.2-75.2)
Lymphocytes % 3.4 L %
(20.5-51.1)
Sodium 129 L mmol/L
(135-145)
Potassium 5.6 H mmol/L
(3.5-5.1)
Carbon Dioxide 20 L mmol/L
(22-30)
BUN 73 H mg/dl
(9-20)
Creatinine 1.7 H mg/dL
(0.7-1.3)
Glucose 110 H mg/dl
(70-99)
Magnesium 2.6 H mg/dl
(1.6-2.3)
Alkaline Phosphatase 151 H U/L
(38-126)
Total Protein 5.2 L g/dl
(6.3-8.2)
Albumin 2.6 L g/dl
(3.5-5.0)
01/18/24 11:24
01/18/24 11:24
Vital Signs
Initial and Last Documented VS:
Initial Vital Signs
Temp Pulse Resp BP Pulse Ox
97.8 F 108 16 78/52 98
01/18/24 10:42 01/18/24 10:42 01/18/24 10:42 01/18/24 10:42 01/18/24 10:42
Last Documented Vital Signs
Temp Pulse Resp BP Pulse Ox
97.8 F 87 16 105/73 98
01/18/24 10:42 01/18/24 12:45 01/18/24 10:42 01/18/24 12:30 01/18/24 12:45
MDM/Problems Addressed
MDM/Problems Addressed:
Hypotension/hypovolemia secondary to GI fluid losses. Given that diarrhea duration is unclear in the setting of chemotherapy, will opt for hospital admission for further IV rehydration. BP gradually trending up with IV fluids.
hyperkalemia/hypermagnesemia likely hemoconcentration
*Critical Care Note
Total Time (30-74mins, 75-104mins- exclusive of procedures): Not Applicable
Update Note
Update Note:
Discussed pt admission with OID, pt was scheduled to receive Nyvepria 6mg SC today for WBC stimulation, also IV iron x2. Will defer IV iron decision to medicine given that Hgb is 10.7, albeit could be hemoconcentration in the setting of hypovolemia
ED Attending Note
-
Portions of this chart may have been created with voice recognition software.� Occasional wrong word or��sound alike� substitutions may have occurred due to the inherent limitations of voice recognition software.
Discharge Plan
Departure
Patient Disposition: Admit
Date of Disposition: 01/18/24
Time of Disposition: 12:18
Admit to: Med/Surg
Presentation/result/management discussed w/ accepting MD/DO: Hospitalist
Discharge Problem:
Acute dehydration, Acute kidney injury, Diarrhea
Prescriptions:
No Action
atorvastatin 20 mg Tablet
20 mg PO DAILY
ropinirole 0.5 mg Tablet
0.5 mg PO HS
valsartan 320 mg Tablet
320 mg PO DAILY
folic acid 1 mg tablet
1 mg PO DAILY
PreserVision AREDS-2 250-90-40-1 mg Capsule
1 cap PO BID
fluticasone propion-salmeterol [Wixela Inhub] 500-50 mcg/dose blister with device
1 inh INHALATION R BIDPRN PRN (Reason: sob)
therapeutic multivitamin Tablet
1 tab PO DAILY
pantoprazole 40 mg Tablet,Delayed Release (Dr/Ec)
40 mg PO BID Qty: 60 0RF
guaifenesin [Robitussin] 100 mg/5 mL Liquid
200 mg PO Q4H PRN (Reason: cough)
loperamide [Imodium] 2 mg Capsule
2 mg PO DIRECTED PRN (Reason: diarrhea)
Patient Comments:
01/18/2024, pt. takes 2 capsules at onset of diarrhea and then 1 cap for every additional episode up to four times a day if needed.
acetaminophen [Tylenol Extra Strength] 500 mg Tablet
1,000 mg PO BIDPRN PRN (Reason: mild pain)
lidocaine-prilocaine 2.5-2.5 % Cream
1 applic TOPICAL DIRECTED
Patient Comments:
01/18/2024, pt. applies day before, day of, and day after chemo treatment to port site.
dexamethasone 4 mg Tablet
4 mg PO DIRECTED
Rx Instructions:
01/18/2024, take day before, day of, and day after chemo treatment.
Referrals:
Brian White MD [Family Provider] -
Interventions
Interventions:
*Risk Screen - Suicide Last Done: 01/18/24 10:42
*General Assessment Last Done: 01/18/24 10:42
*Neglect/Abuse Screening Last Done: 01/18/24 10:42
ED- Cardiac Assessment Last Done: 01/18/24 12:55
ED- Neurological Assessment Last Done: 01/18/24 12:55
ED- Pulmonary Assessment Last Done: 01/18/24 12:55
Discharge Date and Time
Print Language: MALAYSIAN
[2024-01-18] MEDS: NSS 1000 IV ×3 (11:32→16:50)
[2024-01-18 11:37] LABS: % Basophils 0.7 % (0-2); % Immature Granulocytes 6.4 % (0-0.5); % Lymphocytes 3.4 % (20.5-51.1); % Monocytes 4.7 % (1.7-9.3); % Neutrophils 84.8 % (42.2-75.2); Absolute Basophils 0.1 10^3/uL (0-0.2); Absolute Immature Granulocytes 0.7 10^3/uL (0-0.05); Absolute Lymphocytes 0.4 10^3/uL (1.2-3.4); Absolute Monocytes 0.5 10^3/uL (0.1-0.6); Absolute Neutrophils 9.4 10^3/uL (1.4-6.5); Hemoglobin 10.7 g/dL (13.0-18.0); Mean Corp Hgb Conc. 33.4 g/dL (33.0-37.0); Mean Corpuscular Hgb 27.4 pg (27.0-31.0); Mean Corpuscular Volume 81.8 fL (80.0-94.0); Mean Platelet Volume 10.3 fL (7.4-10.4); Nucleated Red Blood Cells % 0 % (-); Platelet Count 567 10^3/uL (130-400); Red Blood Cell Count 3.91 10^6/uL (4.70-6.10); Red Cell Dist. Width 16.9 % (11.5-14.5); White Blood Cell Count 11.1 10^3/uL (4.8-10.8)
[2024-01-18 11:58] LABS: ALT (SGPT) 21 U/L (0-50); AST (SGOT) 29 U/L (17-59); Albumin 2.6 g/dl (3.5-5.0); Alkaline Phosphatase 151 U/L (38-126); Blood Urea Nitrogen 73 mg/dl (9-20); Calcium 9.2 mg/dl (8.4-10.2); Carbon Dioxide 20 mmol/L (22-30); Chloride 100 mmol/L (98-107); Glucose 110 mg/dl (70-99); Magnesium 2.6 mg/dl (1.6-2.3); Potassium 5.6 mmol/L (3.5-5.1); Sodium 129 mmol/L (135-145); Total Bilirubin 0.4 mg/dl (0.2-1.3); Total Protein 5.2 g/dl (6.3-8.2); eGFR 41.26
[2024-01-18] MEDS: NYVEPRIA 6 MG SC (13:26)
--- NOTE | 2024-01-18 14:49 | HPS.HSE ---
Addendum entered and electronically signed by Dillan Canales MD 01/18/24 23:01:
Attending Addendum-
I performed a history and physical exam of the patient and discussed his management with the resident. I reviewed the resident's note and agree with the documented findings and plan of care CC/HPI- patient presents to ed due to frequent watery
diarrhea and significant weakness and fatigue. Had new chemo regimen started one week ago. Denies melena. Was found to be hypotensive and give NS bolus in ed. Still hypotensive and feeling weak. Full 12 point ROS reviewed and negative except as
documented Exam- vitals reviewed in EMR GEN-NAD, heart tachycardic abd soft LE +1 pitting edema
Plan:
# Hypovolemic Shock
- secondary to severe persistent diarrhea
- NS bolus I L x 4
- hold valsartan
- monitor closely for need for pressors
- maintain MAP > 65
- repeat BMP in am
# Severe Sepsis due to C diff
- c diff checked and pos 01/17
- DC loperamide
- Start Dificid x 14 days
- CM c/s for cost
- repeat CBC in am
# SUZI-
- likely prerenal (hypotension and dehydration)
- give aggressive IVF
- hold valsartan
- check FeNA
- repeat BMP in am- anticipate rapid resolution
# Hyponatremia
- hypovolemic
- cont aggressive IVF repletion
- repeat BMP in am
# Hyperkalemia-
- due to SUZI
- give IVF
- hold HALINA
- No change on EKG
- repeat BMP in am
# COPD
- not in AE
- cont inhaler
# Metastatic Lung ca-
- CSF stim factor given in ED
- treat acute issues
- consult onc if needed
- onc Dr. Gil
# Gastric and Duodenal ulcer-
- recent GI bleed
- repeat CBC in am
- cont PPI BID
# Restless Legs Syndrome-
- cont ropinirole
# HTN
- now hypotensive
- hold valsartan
Dispo- eventual DC home with HC
Code- FULL
Time spent coordinating care, review of plan of care with resident, personally reviewed previous records in EMR, med rec, labs, radiology, d/w nursing, family, PCP �- 79 mins
Original Note:
Family Physician
-
Family Physician: Brian White
Chief Complaint
-
Dehydration
History of Present Illness
78-year-old male with a past medical history of metastatic lung cancer patient admission for GI bleed 12/24/23 to at 12/28/23. Patient is status post radiation to duodenal metastases that was bleeding. Presents to the emergency department with 2
days of increasing fatigue and diffuse watery diarrhea, hourly. Patient endorses that the diarrhea was black at first and eventually has turned brown, has not noted any more black in stool. Patient started receiving chemotherapy treatment 2 days
ago. Since then he has been endorsing these feelings of fatigue and hourly diffuse watery, nonbloody diarrhea. He was scheduled today to get outpatient IV iron x 2 and granulocyte stimulating factor. Today in the ED he received 2 liters of normal
saline as boluses as well as Nyvepria. On exam patient appears dry. Labs demonstrate a prerenal SUZI. He denies chest pain and shortness of breath.
Medical History
Past Medical History
Past Medical History: Reports Cancer, COPD, HTN, Hypercholesterolemia and Other
Additional Past Medical History:
Restless leg syndrome, bleeding gastric ulcer, GERD, symptomatic anemia, left adrenal metastases
Past Surgical History: Reports None
Social History
Tobacco: Former Smoker (quit 8 years [id number] history.)
Alcohol: None
Drug: None
Personal:
Living: With Family
Family History
Family History: Not pertinent
Allergies / Home Medications
Allergies reflects when Allergies were last updated in [employer].
Home Medications with original date entered in [employer]
Allergy/Medication List:
Acetaminophen 1000 mg p.o. twice daily as needed
Atorvastatin 20 mg p.o. daily
Dexamethasone 4 mg p.o.
Fluticasone propion-salmeterol
Folic acid 1 mg p.o. daily
1 Epicyn 200 mg p.o. every 4 hours as needed
Lidocaine�pramocaine topical as needed
Loperamide 2 mg p.o. as needed
Pantoprazole 40 mg p.o. twice daily
Ropinirole 1.5 mg p.o.
Valsartan 320 mg p.o.
Therapeutic multivitamin
No known drug allergies
Review of Systems
-
History Source: Patient
A 12 point ROS was completed and negative except as noted: Yes
Constitutional: Reports No Symptoms; Denies Fever
Respiratory: Reports No Symptoms
Cardiac: Reports No Symptoms
Abdomen/GI: Reports Abdominal Pain, Diarrhea and Black Stools; Denies Nausea, Vomiting or Bloody Stools
: Reports No Symptoms
Musculoskeletal: Reports No Symptoms
Skin: Reports No Symptoms
Neurological: Reports No Symptoms
Physical Exam
Vital Signs
Vital Signs
Temp Pulse Resp BP Pulse Ox
97.8 F 87 16 105/73 98
01/18/24 10:42 01/18/24 12:45 01/18/24 10:42 01/18/24 12:30 01/18/24 12:45
Physical Exam
General: Well Developed, Well Nourished, No Apparent Distress, Comfortable and Conversant
HEENT: NormoCephalic
Respiratory: Clear and Non Labored Respirations; No Wheezes, Rales or Rhonchi
Cardiac: S1/S2 and Regular Rhythm
GI: Soft, Non Distended, Normal Bowel Sounds, Tender and Other (Postradiation changes seen on mid abdomen)
Musculoskeletal: Edema, Left Lower Extremity (+1) and Edema, Right Lower Extremity (+1)
Skin: Warm and Dry
Neuro: Awake, Alert, Oriented, AO x 3 and Other (Right foot drop)
Psych: Calm
Laboratory Results
-
01/18/24 11:24
01/18/24 11:24
Laboratory Results
Total Bilirubin 0.4 mg/dl (0.2-1.3) 01/18/24 11:24
AST 29 U/L (17-59) 01/18/24 11:24
ALT 21 U/L (0-50) 01/18/24 11:24
Alkaline Phosphatase 151 U/L (38-126) H 01/18/24 11:24
Data Reviewed
-
Lab Data: Labs Reviewed by me and Discussed with Physician
Impression/Plan
-
IMPRESSION:
78-year-old male with a past medical history of lung cancer recently started on chemotherapy presents to the emergency department with 2 days of diffuse watery diarrhea and dehydration.
PLAN:
#Hypovolemic shock/dehydration
-Pressures on admission were 78/52
-SP 1 L normal saline bolus x3
-Continue IV fluids
-Keep MAP above 65
-Monitor electrolytes daily CBC and CMP
-Discontinue loperamide
#Prerenal SUZI
-Hourly diarrhea previous 3 days
-Creatinine on admission was 1.7 BUN was 73. Patient's baseline creatinine is 0.8, baseline BUN is 12
-Continue IV fluids
-Order urine studies to calculate FeNa
#C. difficile
-Patient endorses diffuse watery diarrhea for the past 2 days
-Stool sample was collected and tested for C. difficile antigens
-Sample was positive for C. difficile antigens
-P.o. fidaxomicin initiated
#Anemia
-Patient previously admitted for GI bleed, secondary to metastatic duodenal lesion, and gastric ulcers
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
-Hemoglobin is stable at 10.7, which seems to be the patient's baseline
-Will continue pantoprazole 40 twice daily p.o.
#Hyperkalemia
-Potassium was 5.6 on admission
-Likely secondary to SUZI, and reduced filtration
-Continue IV fluids
#COPD
-Patient does not endorse shortness of breath or difficulty breathing at this time
-Patient takes 1 puff fluticasone PropionSalmeterol BIDPRN for shortness of breath, and guaifenesin
-Continue current meds
#Foot drop
-Patient endorses spontaneous foot drop developing on the right foot only 3 weeks ago
-Etiology unknown
-Workup will be initiated
#Hyperlipidemia
-Continue home atorvastatin p.o. 20 mg
#Hypertension
-Continue valsartan 320 mg p.o.
[2024-01-18] MEDS: FLUSH (NSS) 1 FLUSH IV (16:50)
--- NOTE | 2024-01-18 17:55 | PTCARENOTE ---
Positive C.diff from lab. Results sent to Dr. Canales at [id number]. Placed in chart
--- NOTE | 2024-01-18 17:56 | PTCARENOTE ---
Pt on enhanced precautions for Positive c.diff
[2024-01-18] MEDS: OCUVITE SOFTGEL 1 CAP PO (20:26)
[2024-01-18] MEDS: PROTONIX 40 MG PO (20:26)
[2024-01-18] MEDS: DIFICID 200 MG PO (20:26)
[2024-01-18] MEDS: HEPARIN 5000 UNITS SC (20:27)
[2024-01-18 21:25] LABS: INR 1.28; PT 15.8 Sec (11.4-14.6)
[2024-01-18 21:26] LABS: APTT 29.3 Sec (23.4-35.0)
[2024-01-18] MEDS: ADVAIR HFA 230/21 MCG INHALER INH (21:29)
[2024-01-18 21:32] LABS: Blood Urea Nitrogen 75 mg/dl (9-20); Calcium 8.7 mg/dl (8.4-10.2); Carbon Dioxide 17 mmol/L (22-30); Chloride 105 mmol/L (98-107); Estimated Creatinine Clearance 37 ml/min; Glucose 126 mg/dl (70-99); Sodium 130 mmol/L (135-145); eGFR 47.95
[2024-01-18 21:37] LABS: NT-proBNP 517 pg/ml
[2024-01-18 22:22] LABS: Vitamin B12 938 pg/ml (239-931)
[2024-01-18] MEDS: REQUIP 0.5 MG PO (23:30)
[2024-01-18] MEDS: NSS 500 IV (23:30)
[2024-01-18] MEDS: TYLENOL 1000 MG PO (23:31)
[2024-01-18] MEDS: VISBIOME 1 CAP PO (23:31)
[2024-01-19] VITALS (28 sets, daily range): BP systolic 73–119; BP diastolic 50–74; BMI 22.1
[2024-01-19 05:26] LABS: % Basophils 1.4 % (0-2); % Lymphocytes 33.3 % (20.5-51.1); % Monocytes 17.4 % (1.7-9.3); % Neutrophils 47.9 % (42.2-75.2); Absolute Lymphocytes 0.2 10^3/uL (1.2-3.4); Absolute Monocytes 0.1 10^3/uL (0.1-0.6); Hematocrit 29.3 % (39.0-52.0); Hemoglobin 9.6 g/dL (13.0-18.0); Mean Corp Hgb Conc. 32.8 g/dL (33.0-37.0); Mean Corpuscular Hgb 26.7 pg (27.0-31.0); Mean Corpuscular Volume 81.4 fL (80.0-94.0); Mean Platelet Volume 10.4 fL (7.4-10.4); Nucleated Red Blood Cells % 0 % (-); Platelet Count 399 10^3/uL (130-400)
[2024-01-19 05:46] LABS: White Blood Cell Count 0.7 10^3/uL (4.8-10.8)
[2024-01-19 06:00] LABS: ALT (SGPT) 30 U/L (0-50); AST (SGOT) 49 U/L (17-59); Alkaline Phosphatase 115 U/L (38-126); Blood Urea Nitrogen 78 mg/dl (9-20); Calcium 8.4 mg/dl (8.4-10.2); Carbon Dioxide 16 mmol/L (22-30); Chloride 106 mmol/L (98-107); Estimated Creatinine Clearance 37 ml/min; Glucose 100 mg/dl (70-99); Magnesium 2.6 mg/dl (1.6-2.3); Potassium 6.2 mmol/L (3.5-5.1); Sodium 128 mmol/L (135-145); Total Bilirubin 0.3 mg/dl (0.2-1.3); Total Protein 4.4 g/dl (6.3-8.2); eGFR 47.95
--- NOTE | 2024-01-19 06:04 | PTCARENOTE ---
pt's WBC dropped form 11 to 0.7 this morning K 6.2 House provider made aware, pt transferred to Telemetry.
--- NOTE | 2024-01-19 06:16 | W.PN.UPDATE ---
Update Note
Progress Note Update
Patient had an episode of hypotension 86/56 was treated with 500cc bolus of NSS repeated bp 101/69.
This am at 0603, K level was reported by the nursing staff 6.2, at 2108 K level was 6 and not reported.
Patient was placed on telemetry,new orders of EKG, Lokelma 10 g, insulin 10 units and dextrose 25 gram and will repeat bmp.
[2024-01-19] MEDS: LOKELMA 10 GRAM PO (06:32)
[2024-01-19 06:38] LABS: Glucose - Point of Care 100 mg/dl (70-99)
[2024-01-19] MEDS: DEXTROSE 50% SYRINGE 25 GRAMS IV (06:39)
[2024-01-19] MEDS: FLUSH (NSS) 2 FLUSH IV (06:47)
[2024-01-19] MEDS: NOVOLIN R 0.1 UNITS IV (07:00)
[2024-01-19] MEDS: FLUSH (NSS) 1 FLUSH IV (07:01)
[2024-01-19 07:21] LABS: Glucose - Point of Care 186 mg/dl (70-99)
[2024-01-19 07:22] LABS: Osmolality Serum 294 mOsm/kg (275-300)
[2024-01-19] MEDS: CALCIUM GLUCONATE 100 IV (07:45)
--- NOTE | 2024-01-19 07:53 | RR ---
A Rapid Response was called on this patient, please see Rapid Response form.
[2024-01-19] MEDS: ADVAIR HFA 230/21 MCG INHALER INH ×2 (08:01→17:53)
[2024-01-19 08:11] LABS: Absolute Neutrophils 0.3 10^3/uL (1.4-6.5)
--- NOTE | 2024-01-19 08:27 | PTCARENOTE ---
pt's BP 80/64 manually, HR 105; T 97.5; RR 14 K 6.2; WBC 0.7 reported to House provider this morning, orders in for Lokelma, IV Insulin, and dextrose. Rapid response was called to better manage symptoms, EKG taken placed in chart. Denies chest
pain, denies nausea vomiting, light headiness. Hospitalists made aware, Resident at bedside placing orders. Orders to transfer pt are in.
[2024-01-19] MEDS: THERAGRAN 1 TABLET PO (08:47)
[2024-01-19] MEDS: DIFICID 200 MG PO (08:48)
[2024-01-19] MEDS: LIPITOR 20 MG PO (08:48)
[2024-01-19] MEDS: OCUVITE SOFTGEL 1 CAP PO ×2 (08:48→20:15)
[2024-01-19] MEDS: VISBIOME 1 CAP PO (08:48)
[2024-01-19] MEDS: PROTONIX 40 MG PO ×2 (08:48→20:15)
[2024-01-19] MEDS: FOLVITE 1 MG PO (08:48)
[2024-01-19] MEDS: HEPARIN 5000 UNITS SC ×2 (08:49→20:15)
[2024-01-19 09:14] LABS: PCO2 28 mmHg (35-48); PO2 124 mmHg (83-108); pH 7.33 (7.35-7.45)
[2024-01-19 09:17] LABS: HCO3 14.8 mmol/L (21-28)
[2024-01-19] MEDS: SOLU-CORTEF 100 MG IV (09:23)
[2024-01-19] MEDS: NSS 1000 IV ×2 (09:23→18:34)
[2024-01-19 09:31] LABS: Lactic Acid 1.6 mmol/L (0.7-2.0)
[2024-01-19 10:07] LABS: Blood Urea Nitrogen 74 mg/dl (9-20); Carbon Dioxide 16 mmol/L (22-30); Chloride 107 mmol/L (98-107); Estimated Creatinine Clearance 38 ml/min; Glucose 99 mg/dl (70-99); Potassium 5.8 mmol/L (3.5-5.1); Sodium 127 mmol/L (135-145); eGFR 47.95
--- NOTE | 2024-01-19 10:40 | W.PN.HOSP.TC ---
Addendum entered and electronically signed by Dillan Canales MD 01/19/24 21:59:
Attending Addendum-
I saw and evaluated the patient. I reviewed the resident�s note and agree with findings and plan as documented in the resident�s note. S: patient requiring fluid bolus overnight due to hypotension, This am rapid was called. Patient hypotensive and
still with significant non bloody diarrhea. Patient feels weak but otherwise 'ok' Has not had any urine out put per patient. Full 12 point ROS reviewed and negative except as documented Exam- vitals reviewed in EMR GEN-fatigued weak, heart
tachycardic abd ttp over abdomen no rebound/guarding LE +1 pitting edema
Plan:
# Septic and Hypovolemic Shock
- secondary to severe persistent diarrhea from Severe C diff colitis
- NS bolus @ 6L total given
- start NS @ 125mls/hr
- start levophed gtt to maintain MAP > 65
- DC valsartan and immodium
- repeat BMP q 6 hours
- transfer to IMU
- check CT abd STAT-
1. Severe pancolitis most compatible with C. difficile colitis.
2. Geographic region of hypoattenuation in the left kidney suggestive of a renal infarct. Pyelonephritis is an alternative consideration.
3. Bilateral nephrolithiasis.
4. Urinary bladder calculi.
5. 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
6. Mild abdominal ascites.
7. Small bilateral pleural effusions.
8. Small pericardial effusion.
- c/s ID- appreciate recs
- start high dose vanco PO/IV metro
- follow cultures
- NPO
#Adrenal Insufficiency
- stat hydrocortisone and q 6 x 24-48 hours
- check cortisol and ACTH level
# SUZI/Urinary retention
- likely prerenal and post due to urinary retention
- give aggressive IVF
- hold valsartan
- check FeNA
- repeat BMP q 6 hours
- place sanches
# Non gapped Metabolic acidosis
- compensatory resp alkalosis
- BMP q 6 hours
- give 1 amb bicarb IV
# Hyponatremia
- hypovolemic
- cont aggressive IVF repletion
- repeat BMP q 6
# Hyperkalemia-
- due to adrenal insufficiency and SUZI
- cont IVF
- Lokelma x 2 given
- dextrose/insulin x 2 given
- calcium carb stat x 1g
- start albuterol nebs q 6
- hold HALINA
- No change on EKG
- repeat BMP in am
# COPD
- not in AE
- cont inhaler
# Metastatic Lung ca/Severe Neutropenia
- ANC < 500
- if febrile start unasyn per ID
- appreciate input
- follow blood cx
- CSF stim factor given in ED
- treat acute issues
- cbc daily
- consult onc
# Gastric and Duodenal ulcer-
- recent GI bleed
- repeat CBC in am
- cont PPI BID (benefit outweights risks with c diff)
# Restless Legs Syndrome-
- cont ropinirole
# HTN
- now hypotensive
- hold valsartan
Dispo- cont critical care management
Code- FULL
CC Note
Total critical care time: Approximately 36 minutes
Due to a high probability of clinically significant, life-threatening deterioration, the patient required high level of preparedness to intervene emergently and I personally spent this critical care time directly and personally managing the patient.
This critical care time included obtaining history; examining the patient; pulse oximetry; ordering and review of studies; arranging urgent treatment with development of a management plan; evaluation of patient's response to treatment; frequent
reassessment; and, discussions with other providers.
This critical care time was performed to assess and manage the high probability of imminent, life-threatening deterioration that could result in multi-organ failure. It was exclusive of separately billable procedures and treating other patients and
teaching time.
Original Note:
Today's Communication/Plan
-
Continue IV fluids monitor for hypotension, hyperkalemia
Assessment / Plan
Assessment / Plan
#Hypovolemic shock/dehydration
-Pressures on admission were 78/52
-Patient had 2 episodes of hypotension overnight both of which resolved with IV fluid boluses
-Patient was upgraded to IMU level care
-Patient has been receiving saline boluses as needed for hypotension.
-Will transition to continuous IV fluids 125 mL/h every 8 hours.
-Patient was started on norepinephrine drip 4 mg/250 mL, per protocol.
-Keep MAP above 65
-Monitor electrolytes daily CBC and CMP
-Patient was all started on hydrocortisone 50 mg IV every 6, as there is potential concern for adrenal insufficiency as patient was on steroids for 3 days as part of his chemo regimen, patient also has a left adrenal metastases
-Diet was changed n.p.o.
#Prerenal SUZI
-Hourly diarrhea previous 3 days
-Creatinine on admission was 1.7 BUN was 73. Patient's baseline creatinine is 0.8, baseline BUN is 12
-Continue IV fluids
#C. difficile
-Patient endorses diffuse watery diarrhea for the past 2 days
-Stool sample was collected and tested for C. difficile antigens
-Sample was positive for C. difficile antigens
-There is concern for potential fulminant C. difficile
-Patient will be started on oral vancomycin 500 mg every 6 hours, and 500 mg metronidazole IV per day total
-CT scan abdomen pelvis with oral contrast was ordered to evaluate for potential toxic megacolon.
#Lymphopenia
-Patient's white blood cell count decreased from 11.1-0.7 overnight, absolute neutrophil count is 0.3. Patient is neutropenic by definition.
-Received granulocyte stimulating factor in ED yesterday, effect not expected for few days at least
-Place patient on neutropenic precautions
-Oncology consulted
#Urinary retention
-No urine output recorded as patient has not been urinating, despite getting large amounts of IV fluid and drinking fluids orally
-Sanches catheter will be initiated
-Strict I's and O's recorded
-Urine studies have been ordered
#Metabolic acidosis with respiratory compensation
-ABG was ordered which demonstrated a metabolic acidosis with respiratory concentration
-Will continue to monitor and may consider giving bicarb with half-normal saline as needed if acidosis worsens
#Anemia
-Patient previously admitted for GI bleed, secondary to metastatic duodenal lesion, and gastric ulcers
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
-Hemoglobin is stable at 10.7, which seems to be the patient's baseline
-Will continue pantoprazole 40 twice daily p.o.
#Hyperkalemia
-Potassium was 5.6 on admission
-Potassium went up to 6 overnight, EKG showed sinus tach with no hyperkalemic changes
-Patient was started on calcium gluconate, insulin and Lokelma
-Likely secondary to SUZI, and reduced filtration
-Continue IV fluids
-Will follow patient with q6 BMPs
#COPD
-Patient does not endorse shortness of breath or difficulty breathing at this time
-Patient takes 1 puff fluticasone PropionSalmeterol BIDPRN for shortness of breath, and guaifenesin
-Continue current meds
#Foot drop
-Patient endorses spontaneous foot drop developing on the right foot only 3 weeks ago
-Etiology unknown
#Hyperlipidemia
-Continue home atorvastatin p.o. 20 mg
#Hypertension
-Continue valsartan 320 mg p.o.
Cholesterol-lowering diet
Full code
Anticipated Discharge: > 48 hours
Subjective/Interval History
-
Date of Service: January 19, 2024
Patient had 2 episodes of hypotension today 1 at 6 AM and 1 again at 8 AM, both were resolved with IV fluids. Patient was upgraded to IMU level care
Objective Data
-
Labs:
Laboratory Results
01/19/24 01/19/24 01/19/24
04:48 06:00 08:53
WBC 0.7 L*
Hgb 9.6 L
Hct 29.3 L
Plt Count 399 D
HCO3
Sodium 128 L Pending 127 L
Potassium 6.2 H* Pending 5.8 H
Chloride 106 Pending 107
Carbon Dioxide 16 L Pending 16 L
BUN 78 H Pending 74 H
Creatinine 1.5 H Pending 1.5 H
Glucose 100 H Pending 99
Calcium 8.4 Pending 8.0 L
Total Bilirubin 0.3
AST 49
ALT 30
Alkaline Phosphatase 115
01/19/24 01/19/24 01/19/24
08:56 12:00 18:00
WBC
Hgb
Hct
Plt Count
HCO3 14.8 L*
Sodium Pending Pending
Potassium Pending Pending
Chloride Pending Pending
Carbon Dioxide Pending Pending
BUN Pending Pending
Creatinine Pending Pending
Glucose Pending Pending
Calcium Pending Pending
Total Bilirubin
AST
ALT
Alkaline Phosphatase
Vital Signs:
Vital Signs
Temp Pulse Resp BP Pulse Ox
97.9 F 112 18 94/61 98
01/19/24 01:00 01/19/24 09:33 01/19/24 01:00 01/19/24 10:22 01/19/24 09:52
I&O
01/18/24 01/19/24 01/20/24
06:59 06:59 06:59
Intake Total 1700 / 1700 625 / 625
Balance 1700 / 1700 625 / 625
Review of Systems
-
History Source: Patient
Constitutional: Reports No Symptoms; Denies Fever, Weight Gain, Fatigue or Weakness
Respiratory: Reports No Symptoms
Cardiac: Reports No Symptoms; Denies Chest Pain
Abdomen/GI: Reports No Symptoms; Denies Abdominal Pain
Genitourinary: Reports No Symptoms
Musculoskeletal: Reports No Symptoms
Physical Exam
-
General: No Apparent Distress, Comfortable and Appears Chronically Ill; Negative Respiratory Distress or Fever
Respiratory: Clear to Auscultation; Negative Wheezes
Cardiac: Regular Rhythm and S1/S2; Negative Murmur
GI: Soft, Nontender, Nondistended and Other (Postradiation changes noted on abdomen)
Musculoskeletal: Edema, Right Lower Extrem and Edema, Left Lower Extrem
Skin: Warm and Dry
Psych: Calm
Data Reviewed
-
Diagnostic Radiology: Image personally visualized and interpreted, Report Reviewed by me and Discussed with Physician
Labs: Labs Reviewed by me and Discussed with Physician
--- NOTE | 2024-01-19 10:40 | PTCARENOTE ---
RR called on this pt this AM, MD order to tx to IMU level of care. Report called to Timoteo in IMU, patient being transferred.
[2024-01-19] MEDS: LEVOPHED 250 IV (12:12)
[2024-01-19 13:02] LABS: Total Thyroxine 4.79 ug/dl (5.5-11.0)
--- NOTE | 2024-01-19 13:46 | PTCARENOTE ---
Pt arrived to floor in bed from 2N; Pt slid over to new bed; NSS @ 125/hr infusing into R Subq Port; 16F Redmond placed, as per order, with 200ml dark akira urine; Pt remains hypotensive post fluid resusitation - Levophed started @ 1ml and titrated
to 2ml/hr. Will continue to monitor and assess.
[2024-01-19] MEDS: FLAGYL 500 MG 100 IV ×2 (14:01→22:44)
[2024-01-19] MEDS: SOLU-CORTEF 50 MG IV ×2 (14:02→20:16)
[2024-01-19] MEDS: OMNIPAQUE 50 ML PO (14:29)
[2024-01-19 14:31] LABS: Blood Urea Nitrogen 78 mg/dl (9-20); Calcium 8.3 mg/dl (8.4-10.2); Carbon Dioxide 16 mmol/L (22-30); Chloride 106 mmol/L (98-107); Estimated Creatinine Clearance 33 ml/min; Glucose 97 mg/dl (70-99); Sodium 127 mmol/L (135-145); eGFR 41.26
--- NOTE | 2024-01-19 14:49 | CON.ID ---
Consultation
-
Date/Time Consultation Requested: 01/19/24 12:43
Date/Time Consultation Performed: 01/19/24 14:49
Requesting Provider: Dr Hopper
Performing Provider: Dr Spence
Reason for Consultation: C difficile, neutropenia
Chief Complaint / Past History
Chief Complaint
dehydration
History of Present Illness
Mr Dallas is a 78 year old male with history of metastatic lung cancer last chemotherapy two days prior to arrival. s/p radiation therapy, who presented here last night for two days of increasing fatigue, watery diarrhea. Stool initially black,
then turned brown. Stool is diffuse, watery. No blood seen in the stool. He was due for GCSF on the day of arrival however he was hospitalized for the diarrhea. Note recent history of GI bleed.
Since arrival here he has been afebrile, bp getting volume and pressure support, initially tachycardic now improved, wbc on arrival 11.1, today 0.7, hbg 9.6 from 10.7, plt 567 on arrival now 399, ANC today 300, no eos present, cr 1.7 this am with
baseline 0.8, CXR: Right midlung opacity compatible with the patient's known lung cancer, port. Initially on fidaxomicin, now on high dose oral vancomycin and IV metronidazole.
Past History
Additional Past Medical History:
COPD, HTN, Hypercholesterolemia, Restless leg syndrome, bleeding gastric ulcer, GERD, symptomatic anemia, left adrenal metastases
Additional Past Surgical History:
Port
Allergy History:
No Known Allergies Allergy (Verified 01/18/24 10:42)
Medications Reviewed: Yes
Social History
Tobacco: Former Smoker
Alcohol: None
Drug: None
Family History
Family History: Not Pertinent
Review of Systems
Review of Systems
General: Negative Fever or Chills
All systems: All other systems were reviewed and were negative
Vital Signs
Temp Pulse Resp BP Pulse Ox
97.7 F 98 24 81/53 95
01/19/24 11:06 01/19/24 13:30 01/19/24 13:30 01/19/24 13:00 01/19/24 11:04
Physical Exam
Physical Exam
Constitutional: No Acute Distress
Cardiovascular: Regular Rate and S1/S2; Negative Murmur or Rub
Pulmonary: Clear and Symmetric; Negative Wheezes, Rales or Rhonchi
Gastrointestinal: Soft, Non Tender, Distended (mildly), Normal Bowel Sounds, No Rebound and No Guarding
Skin: Warm and Dry; Negative Rash or Jaundice
Lab / Diagnostic Study Results
01/19/24 04:48
Abs Immat Gran (auto) 0.0 10^3/uL (0-0.05) 01/19/24 04:48
Absolute Neuts (auto) 0.3 10^3/uL (1.4-6.5) L* 01/19/24 04:48
Absolute Lymphs (auto) 0.2 10^3/uL (1.2-3.4) L 01/19/24 04:48
Absolute Monos (auto) 0.1 10^3/uL (0.1-0.6) 01/19/24 04:48
Absolute Basos (auto) 0.0 10^3/uL (0-0.2) 01/19/24 04:48
Immature Gran % 0.0 % (0-0.5) 01/19/24 04:48
Neutrophils % 47.9 % (42.2-75.2) 01/19/24 04:48
Lymphocytes % 33.3 % (20.5-51.1) 01/19/24 04:48
Monocytes % 17.4 % (1.7-9.3) H 01/19/24 04:48
Eosinophils % 0.0 % (0-6) 01/19/24 04:48
Basophils % 1.4 % (0-2) 01/19/24 04:48
PT 15.8 Sec (11.4-14.6) H 01/18/24 21:08
INR 1.28 01/18/24 21:08
Lactic Acid 1.6 mmol/L (0.7-2.0) 01/19/24 09:03
Microbiology Results
Micro:
01/19/24 12:56 Blood Culture - Pending
Blood/Venous
01/18/24 21:08 Blood Culture - Pending
Blood/Venous
01/18/24 16:55 C. difficile GDH Antigen & Toxins - Final
Feces/Stool Toxigenic C.difficile Positive
Assessment / Plan
Severe C difficile Infection
Shock - hypovolemic, also possibly septic
Neutropenia - expected with his chemotherapy
Hyperkalemia - management per IM service
Hyponatremia
- two sets of blood cultures are in progress - follow up
- C diff toxin/ag positive
- agree with CT scan - if there is evidence of megacolon then would consult CT surgery
- if febrile overnight then would start unasyn as well
- agree with oral vancomycin 500mg PO q6 hours and IV metronidazole
- agree with avoiding Imodium
- hold probiotics while neutropenic - restart when anc >1500
- generally prefer to avoid PPIs in the setting of C diff if possible as they are associated with increased risk of relapse however this patient with known gastric/duodenal ulcer and recent GI bleed - agree with continuing it at this time
- note stress dose steroids, GSCF stimulator given in the ER, oncology is consulted
- follow clinically, patient is critically ill
[2024-01-19 18:22] LABS: Urine Albumin Trace (Neg - Trace); Urine Bilirubin 1+ (Negative); Urine Character Very Cloudy (Clear); Urine Color Yellow; Urine Glucose Negative (Negative); Urine Ketone Negative (Negative); Urine Leukocyte Trace (Negative); Urine Nitrite Negative (Negative); Urine Occult Blood 4+ (Negative); Urine Specific Gravity 1.015 (<1.030); Urine Urobilinogen 1+ (Neg - 1+)
[2024-01-19 18:24] LABS: Osmolality Urine 350 mOsm/kg (300-900)
[2024-01-19 18:34] LABS: Blood Urea Nitrogen 78 mg/dl (9-20); Calcium 8.1 mg/dl (8.4-10.2); Carbon Dioxide 15 mmol/L (22-30); Chloride 104 mmol/L (98-107); Estimated Creatinine Clearance 33 ml/min; Glucose 98 mg/dl (70-99); Sodium 126 mmol/L (135-145); eGFR 41.26
[2024-01-19] MEDS: FIRVANQ 500 MG PO ×2 (18:35→23:02)
[2024-01-19 18:39] LABS: Urine Sodium 19 mmol/L (30-90)
[2024-01-19 19:24] LABS: Urine Amorphous Seen
[2024-01-19 19:25] LABS: Urine Bacteria Many (Negative); Urine White Cell 26-30 /HPF (0-5)
--- NOTE | 2024-01-19 20:26 | PTCARENOTE ---
Received pt from [facility]. Pt is AAOx3, drowsy @ times. NSR on the monitor. On RA, crackles @ lung bases. Redmond in place, hygiene provided. Incont of stool. Received pt on 2mcg of levo (see worklist). IVF infusing @ 125 ml/hr. Tylenol given for
pain (see MAR). Pt is laying comfortable in bed with call díaz in reach.
[2024-01-19] MEDS: REQUIP 0.5 MG PO (22:44)
[2024-01-19] MEDS: SODIUM BICARBONATE 50 MEQ IV (22:44)
[2024-01-19] MEDS: TYLENOL 1000 MG PO (23:01)
[2024-01-19] MEDS: VENTOLIN NEBULES INH (23:52)
[2024-01-20] VITALS (14 sets, daily range): BP systolic 85–121; BP diastolic 54–76; BMI 23.5
[2024-01-20 00:48] LABS: Blood Urea Nitrogen 53 mg/dl (9-20); Calcium 4.9 mg/dl (8.4-10.2); Carbon Dioxide 12 mmol/L (22-30); Chloride 119 mmol/L (98-107); Estimated Creatinine Clearance 57 ml/min; Glucose 68 mg/dl (70-99); Potassium 3.7 mmol/L (3.5-5.1); Sodium 134 mmol/L (135-145); eGFR > 60.00
[2024-01-20] MEDS: SODIUM BICARBONATE 1075 MEQ IV ×3 (01:46→20:57)
[2024-01-20] MEDS: CALCIUM GLUCONATE 130 MG IV (01:50)
[2024-01-20] MEDS: SOLU-CORTEF 50 MG IV ×3 (02:00→19:32)
--- NOTE | 2024-01-20 03:55 | W.PN.UPDATE ---
Update Note
Progress Note Update
CO2 12, will start 1/2 NS with Bicarb @ 125cc/hr
Calcium 4.9, corrected Calcium 6.1 will replete
Patient asymptomatic, stable VS
labs in AM
[2024-01-20] MEDS: FLAGYL 500 MG 100 IV ×3 (05:24→21:00)
[2024-01-20] MEDS: FIRVANQ 500 MG PO ×4 (05:24→23:09)
[2024-01-20 05:38] LABS: Hematocrit 27.7 % (39.0-52.0); Hemoglobin 9.4 g/dL (13.0-18.0); Mean Corp Hgb Conc. 33.9 g/dL (33.0-37.0); Mean Corpuscular Hgb 26.9 pg (27.0-31.0); Mean Corpuscular Volume 79.4 fL (80.0-94.0); Mean Platelet Volume 10.3 fL (7.4-10.4); Platelet Count 207 10^3/uL (130-400); Red Blood Cell Count 3.49 10^6/uL (4.70-6.10); Red Cell Dist. Width 16.8 % (11.5-14.5)
[2024-01-20 06:24] LABS: ALT (SGPT) 48 U/L (0-50); AST (SGOT) 68 U/L (17-59); Albumin 1.9 g/dl (3.5-5.0); Alkaline Phosphatase 110 U/L (38-126); Blood Urea Nitrogen 77 mg/dl (9-20); Calcium 8.4 mg/dl (8.4-10.2); Carbon Dioxide 16 mmol/L (22-30); Chloride 105 mmol/L (98-107); Estimated Creatinine Clearance 39 ml/min; Glucose 92 mg/dl (70-99); Potassium 5.8 mmol/L (3.5-5.1); Sodium 127 mmol/L (135-145); Total Bilirubin 0.5 mg/dl (0.2-1.3); Total Protein 4.1 g/dl (6.3-8.2); eGFR 47.95
[2024-01-20 06:54] LABS: Anisocytosis Slight; Band Neutrophils 0 % (0-3); Lymphocytes 28 % (20-51); Monocytes 8 % (2-9); Normal RBC Morphology No; Platelets Checked Yes; Polychromasia Slight; Segmented Neutrophils 64 % (42-75); Target Cells Slight; Total Cells Counted 100
[2024-01-20 06:56] LABS: Absolute Neutrophils -Man Diff 0.4 10^3/uL (1.4-6.5); White Blood Cell Count 0.7 10^3/uL (4.8-10.8)
[2024-01-20] MEDS: ADVAIR HFA 230/21 MCG INHALER INH ×2 (07:43→19:26)
[2024-01-20] MEDS: VENTOLIN NEBULES INH ×2 (07:43→19:26)
[2024-01-20] MEDS: LOKELMA 5 GRAM PO (08:12)
[2024-01-20] MEDS: THERAGRAN 1 TABLET PO (08:12)
[2024-01-20] MEDS: PROTONIX 40 MG PO ×2 (08:12→19:35)
[2024-01-20] MEDS: OCUVITE SOFTGEL 1 CAP PO ×2 (08:12→19:35)
[2024-01-20] MEDS: LIPITOR 20 MG PO (08:13)
[2024-01-20] MEDS: FOLVITE 1 MG PO (08:13)
[2024-01-20] MEDS: HEPARIN 5000 UNITS SC ×3 (08:14→20:51)
[2024-01-20] MEDS: ALBUMIN 5% 250 IV ×2 (08:40→10:00)
--- NOTE | 2024-01-20 09:50 | W.CON.NEPH ---
Consultation
-
Date/Time Consultation Requested: 01/20/2024 9:30 AM
Date/Time Consultation Performed: 01/20/2024 945 AM
Requesting Provider: Dr. Mccabe
Performing Provider: Dr. Nicolas
Reason for Consultation: Hyponatremia
Medical History
-
Chief Complaint: Hyponatremia
History of Present Illness:
Mr Dallas is a 78 year old male with history of metastatic lung cancer last chemotherapy two days prior to arrival. s/p radiation therapy, who presented here for two days of increasing fatigue, watery diarrhea. Stool initially black, then turned
brown. Stool is diffuse, watery. No blood seen in the stool. He was due for GCSF on the day of arrival however he was hospitalized for the diarrhea. Noted recent history of GI bleed due to metatasis of duodenem. Over course of admission patient
developed septic shock. Right midlung opacity compatible with the patient's known lung cancer, port. Initially on fidaxomicin, now on high dose oral vancomycin and IV metronidazole. Now with diagnosis of cdiff. Nephrology was consulted as he now
is with acute renal failure with a creatinine rise up to 1.5 with associated hyperkalemia and hyponatremia with associated underlying metabolic acidosis.
Past Medical History
COPD, HTN, Hypercholesterolemia, Restless leg syndrome, bleeding gastric ulcer, GERD, symptomatic anemia, left adrenal metastases
Social History
Tobacco: Former Smoker
Alcohol: None
Family History
no CKD
Family History: Not Pertinent
Allergies / Home Medications
Allergy/AdvReac Type Severity Reaction Status Date / Time
No Known Allergies Allergy Verified 01/18/24 10:42
�Medication �Instructions �Recorded �Confirmed �Type
atorvastatin 20 mg tablet 20 mg PO DAILY High Cholesterol 11/02/23 01/18/24 History
ropinirole 0.5 mg tablet 0.5 mg PO HS Restless Leg Syndrome 11/02/23 01/18/24 History
valsartan 320 mg tablet 320 mg PO DAILY Blood Pressure 11/02/23 01/18/24 History
fluticasone 500 mcg-salmeterol 50 1 inh inhalation R BIDPRN PRN sob 12/14/23 01/18/24 History
mcg/dose blistr powdr for
inhalation (Wixela Inhub)
folic acid 1 mg tablet 1 mg PO DAILY Supplement 12/14/23 01/18/24 History
vit C 250 mg-vit E 90 mg-zinc 40 1 cap PO BID Supplement 12/14/23 01/18/24 History
mg-copper 1 [id number]
capsule (PreserVision AREDS-2)
therapeutic multivitamin 1 tab PO DAILY Supplement 12/24/23 01/18/24 History
pantoprazole 40 mg tablet,delayed 40 mg PO BID #60 tabs 12/27/23 01/18/24 Rx
release
acetaminophen 500 mg tablet 1,000 mg PO BIDPRN PRN mild pain 01/18/24 01/18/24 History
(Tylenol Extra Strength)
dexamethasone 4 mg tablet 4 mg PO DIRECTED inflammation 01/18/24 01/18/24 History
guaifenesin 100 mg/5 mL oral liquid 200 mg PO Q4H PRN cough 01/18/24 01/18/24 History
lidocaine-prilocaine 2.5 %-2.5 % 1 applic topical DIRECTED Skin 01/18/24 01/18/24 History
topical cream Issues
loperamide 2 mg capsule 2 mg PO DIRECTED PRN diarrhea 01/18/24 01/18/24 History
Review of Systems
-
History Source: Patient
All other systems: Negative unless noted
Constitutional: Fatigue
EENT: No Symptoms
Cardiac: No Symptoms
Abdomen/GI: Abdominal Pain and Diarrhea
: Other (Sanches)
Musculoskeletal: No Symptoms
Skin: No Symptoms
Neurological: No Symptoms
Endocrine: No Symptoms
Hematologic/Lymphatic: No Symptoms
Physical Exam
Vital Signs
Vital Signs
Temp Pulse Resp BP Pulse Ox
97.5 F 98 19 98/64 93
01/20/24 07:50 01/20/24 06:00 01/20/24 06:00 01/20/24 06:00 01/20/24 00:20
Lab Results
01/20/24 05:23
WBC 0.7 10^3/uL (4.8-10.8) L* 01/20/24 05:23
RBC 3.49 10^6/uL (4.70-6.10) L 01/20/24 05:23
Hgb 9.4 g/dL (13.0-18.0) L 01/20/24 05:23
Hct 27.7 % (39.0-52.0) L 01/20/24 05:23
Plt Count 207 10^3/uL (130-400) D 01/20/24 05:23
eGFR 47.95 01/20/24 05:23
Ocb-U-Udyoauuucin Pept 517 pg/ml 01/18/24 21:08
Albumin 1.9 g/dl (3.5-5.0) L 01/20/24 05:23
Physical Exam
General: AOx3, Nontoxic , NAD
HEENT: PERRL, EOMI, Anicteric, Conjunctivae Clear, Ear/Nose Intact, Hearing Normal, Oropharynx Clear/dry, Dentition Intact, Facial Symmetry, Neck Supple, Neck: Trachea Midline, No JVD and No Thyromegaly, no Bruits
Respiratory: Clear to auscultation but with decreased breath sound bilaterally with normal lung exersion
Cardiac: S1/S2 and Regular Rate/Rhythm tachycardic
Breast: Deferred by me
Abdomen: Distended decreased breath sounds some tenderness with palpation
Rectal: Deferred by Provider
Genito-urinary: Sanches
Extremities: No Clubbing, No Cyanosis and +1 pretibial pitting edema
Skin: No Rash or open lesions
Neuro: Nonfocal/Grossly Intact, CN II-XII (Intact) and Strength (Musculoskeletal exam 5 out of 5 both upper and lower extremities)
Hematologic/Lymphatic: No Cervical Lymphadenopathy, No Submandibular Lymphadenopathy and No Supraclavicular Lymphadenopathy
Psych: Mood/afflect pleasant, Insight/judgement good and Appropriate
Vascular: plus 1 pedal and radial pulses
Data Reviewed
-
Radiology: Image Personally Visualized and interpreted (Chest x-ray personally reviewed by myself: no chf, mediport and RML mass)
CT Scan: Report Reviewed by me (CT of abdomen and pelvis notable for severe pancolitis hypoattenuation of left kidney possibly due to renal infarct or pyelonephritis bilateral nephrolithiasis no hydronephrosis, large malignant mass in left adrenal
mild to acities)
Labs: Labs Reviewed by me ([facility] CBC urine osmolality urine sodium)
Old Records: Reviewed (Sodium 135 12/26/2023)
Assessment/Plan
-
Impression:
Presents with sepsis physiology (Ceftriaxone for Pyelonephritis, Vanco and Flagyl for C. Diff
Hyponatremia
Hyperkalemia
Non gapped Metabolic acidosis
Pancolitis with associated C. difficile
Metastatic lung cancer
Possible left renal infarct and/or pyelonephritis
Neutropenia
Large malignant left adrenal gland mass
Plan:
SUZI:
-Likely due to strong prerenal stimulus in setting of volume depletion from GI losses and and/or hypotension in setting of sepsis
-Maintain MAP 65 or greater with IVFs and pressors if needed
-maintain sanches
-Stress dose hydrocortisone provided as patient had been on outpatient dexamethasone
-UA notes 4+ blood trace
Hyponatremia:
-Likely hypovolemic component in addition to SIADH in setting of malignancy
-Need to maintain MAP of 65 or greater to suppress ADH, currently on IV isotonic fluids
Hyperkalemia/nongap metabolic acidosis
-Nongap metabolic acidosis consistent with diarrhea
-IV fluids provided with sodium bicarbonate
-Hyperkalemia should improve with correction of metabolic acidosis
-Must be cautious with agents such as Kayexalate and/or Lokelma given pancolitis these agents should not be administered
-Insulin and D50 to be utilized if K greater than or equal to 6
-Patient is not an appropriate dialysis candidate given advanced comorbidities
--- NOTE | 2024-01-20 10:01 | W.PN.ID1 ---
Date of Service
Date of Service: January 20, 2024
Today's Communication
- start ceftriaxone - coverage for possible UTI/bowel translocation
- continue oral vanc/IV metronidazole
Assessment / Plan
Severe C difficile Infection
Shock - hypovolemic, also possibly septic
Neutropenia - expected with his chemotherapy
Hyperkalemia - management per nephrology
Hyponatremia
- two sets of blood cultures are in progress - follow up
- C diff toxin/ag positive
- CT scan without evidence of megacolon, possibility of renal infarct vs pyelonephritis - UA with pyuria, follow up urine culture
- sputum culture was sent - CXR most consistent with known lung cancer
- start ceftriaxone - coverage for possible UTI/bowel translocation
- agree with oral vancomycin 500mg PO q6 hours and IV metronidazole at this time - deescalation pending course
- hold probiotics while neutropenic - restart when anc >1500
- generally prefer to avoid PPIs in the setting of C diff if possible as they are associated with increased risk of relapse however this patient with known gastric/duodenal ulcer and recent GI bleed - agree with continuing it at this time
- note stress dose steroids, appreciate oncology input
- follow clinically, patient is critically ill
Chief Complaint
-: Clinical Sepsis and Other (C difficile, Neutropenia)
Subjective / Review of Systems
afebrile
bp stable much of yesterday, mildly hypotensive this am - off of pressors
leukopenia ongoing
plt declined overnight
ANC 400 today
remains acidotic
hyponatremia noted
hyperkalemia relapsed
cr now 1.5 from 1.0
t biili 0.5
ast now 68
alt normal
alk pohs 110
ct ap: pancyotitis without megacolon, renal infarct vs pyelonephritis
Vital Signs / Physical Exam
Vital Signs
Vital Signs
Temp Pulse Resp BP Pulse Ox
97.5 F 98 19 98/64 93
01/20/24 07:50 01/20/24 06:00 01/20/24 06:00 01/20/24 06:00 01/20/24 00:20
Physical Exam
Constitutional: Acutely Ill and Chronically Ill
Cardiovascular: Regular Rate and S1/S2; Negative Murmur or Rub
Pulmonary: Clear and Symmetric; Negative Wheezes or Rales
Gastrointestinal: Soft, Tender (diffusely tender with light palpation), Non Distended, Normal Bowel Sounds, No Rebound, No Guarding and Other (no peritoneal signs)
Skin: Warm and Dry; Negative Rash or Jaundice
Objective Data
Lab Data
Lab Results
01/20/24 05:23
PT 15.8 Sec (11.4-14.6) H 01/18/24 21:08
INR 1.28 01/18/24 21:08
APTT 29.3 Sec (23.4-35.0) 01/18/24 21:08
Estimated Creat Clear 39 ml/min 01/20/24 05:23
Lactic Acid 1.6 mmol/L (0.7-2.0) 01/19/24 09:03
Total Bilirubin 0.5 mg/dl (0.2-1.3) 01/20/24 05:23
AST 68 U/L (17-59) H 01/20/24 05:23
ALT 48 U/L (0-50) 01/20/24 05:23
Alkaline Phosphatase 110 U/L (38-126) 01/20/24 05:23
Most recent labs reviewed.
Micro Results:
01/18/24 21:08 Blood Culture - Preliminary
Blood/Venous No Growth in 24 hours- Final report to follow
01/19/24 18:13 Urine Culture - Pending
Urine
01/19/24 17:22 Respiratory Culture - Pending
Sputum Gram Stain - Pending
01/19/24 12:56 Blood Culture - Pending
Blood/Venous
01/18/24 16:55 C. difficile GDH Antigen & Toxins - Final
Feces/Stool Toxigenic C.difficile Positive
Care Review
Plan reviewed with: Physician (Dr Pearson - antibiotics)
--- NOTE | 2024-01-20 10:04 | W.PN.HOSP.TC ---
Addendum entered and electronically signed by Dillan Canales MD 01/20/24 21:47:
Attending Addendum-
I saw and evaluated the patient. I reviewed the resident�s note and agree with findings and plan as documented in the resident�s note. S: overnight found to have severe acidosis and given bicarb. urine output minimal. feels fatigued. nonbloody
diarrhea x 2. states he doesnt have abdominal pain but states 'please dont press on my stomach too hard.' Full 12 point ROS reviewed and negative except as documented Exam- vitals reviewed in EMR GEN-NAD, heart tachycardic lungs crackles at bases
abd ttp over abdomen mildly distended minimal BS heard no rebound/guarding LE +1 pitting edema - sanches present with concentrated urine
Plan:
# Septic Shock
- Severe C diff colitis
- cont NS @ 125mls/hr with bicarb
- Levophed gtt to be restarted to maintain MAP > 65 - status post 500ml NS bolus x 1
- DC valsartan and Imodium
- repeat BMP q 6 hours
- continue care in IMU
- CT abd STAT 01/18-
1. Severe pancolitis most compatible with C. difficile colitis.
2. Geographic region of hypoattenuation in the left kidney suggestive of a renal infarct. Pyelonephritis is an alternative consideration.
3. Bilateral nephrolithiasis.
4. Urinary bladder calculi.
5. 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
6. Mild abdominal ascites.
7. Small bilateral pleural effusions.
8. Small pericardial effusion.
- ID- appreciate recs
- cont high dose vanco PO/IV metro
- follow cultures
- NPO with sips
- nutrition will need to be addressed- c/s GI in am
#Adrenal Insufficiency
- cont hydrocortisone and q 6- start to wean over 48 hours
- monitor electrolytes closely BMP q 6
# SUZI/Urinary retention
- worsening
- nephro c/s- appreciate input
- check renal US
- nonoliguric
- likely prerenal third-spacing and post due to urinary retention
- cont aggressive IVF
- hold valsartan
- check FeNA
- repeat BMP q 6 hours
- cont sanches
# Probable Pyelonephritis
- urine cx pending- follow
- start Rocephin per ID day #1
- questionable renal infarct- check renal art US
# Hypocalcemia-
- repleted with calcium
- check ionized ca
- correct for albumin
# Severe PCM-
- NPO for now due to severe colitis
- will need to address nutrition
- c/s GI in am
# Non gapped Metabolic acidosis
- compensatory resp alkalosis
- BMP q 6 hours
- cont IVF with bicarb
# Hyponatremia
- hypovolemic
- cont aggressive IVF repletion
- repeat BMP q 6
# Hyperkalemia-
- cont IVF with bicarb (H/K shift)
- stable @ 5.5
- Lokelma x 2 given- avoid further due to colitis
- dextrose/insulin prn
- calcium carb stat x 1g
- cont albuterol nebs q 6
- hold HALINA
- No change on EKG
- repeat BMP q 6
# COPD
- not in AE
- cont nebs
# Metastatic Lung ca/Severe Neutropenia
- left adrenal met
- ANC < 500
- appreciate Onc input
- follow blood cx
- CSF stim factor given in ED x 1
- treat acute issues
- check cbc daily
- neutropenic precautions
# Gastric and Duodenal ulcer-
- recent GI bleed
- repeat CBC in am
- cont PPI BID (benefit outweighs risks with c diff)
# Restless Legs Syndrome-
- cont ropinirole
# HTN
- hold valsartan
Dispo- cont critical care management
Code- FULL
DVT-P- increase heparin to TID
Time spent coordinating care, review of plan of care with resident, personally reviewed records in EMR, med rec, consults, notes, labs, radiology, d/w nursing consultants� 70 mins
Original Note:
Today's Communication/Plan
-
Continue high-dose vancomycin and metronidazole for C. difficile infection, monitor blood pressures
Assessment / Plan
Assessment / Plan
#Hypovolemic shock/dehydration
-Pressures on admission were 78/52
-Patient had 2 episodes of hypotension previously both of which resolved with IV fluid boluses
-Patient was upgraded to IMU level care
-Patient has been receiving saline boluses as needed for hypotension. S/p 6 L normal saline boluses
-continuous IV fluids 125 mL/h every 8 hours.
-Patient was started on norepinephrine drip 4 mg/250 mL, per protocol.
-Norepinephrine was discontinued today 01/20/2024
-Keep MAP above 65
-Monitor electrolytes daily CBC and CMP
-Patient was all started on hydrocortisone 50 mg IV every 12 hours, as there is potential concern for adrenal insufficiency as patient was on steroids for 3 days as part of his chemo regimen, patient also has a left adrenal metastases
-Diet was changed n.p.o.
#Prerenal SUZI
-Hourly diarrhea previous 3 days
-Creatinine on admission was 1.7 BUN was 73. Patient's baseline creatinine is 0.8, baseline BUN is 12
-Continue IV fluids
-Renal arterial Doppler was ordered as infarct was seen on CAT scan
#C. difficile
-Patient endorses diffuse watery diarrhea for the past 2 days
-Stool sample was collected and tested for C. difficile antigens
-Sample was positive for C. difficile antigens
-There is concern for potential fulminant C. difficile
-Patient will be started on oral vancomycin 500 mg every 6 hours, and 500 mg metronidazole IV per day total
-CT scan abdomen pelvis with oral contrast was negative for toxic megacolon.
-Abdominal ultrasound was ordered to evaluate for toxic megacolon
#Lymphopenia
-Patient's white blood cell count decreased from 11.1-0.7, absolute neutrophil count is 0.4. Patient is neutropenic by definition.
-Received granulocyte stimulating factor in ED yesterday, effect not expected for few days at least
-Place patient on neutropenic precautions
-Oncology consulted
#Urinary retention
-No urine output recorded as patient has not been urinating, despite getting large amounts of IV fluid and drinking fluids orally
-Sanches catheter will be initiated
-Strict I's and O's recorded
-Urine studies have been ordered
#Metabolic acidosis with respiratory compensation
-ABG was ordered which demonstrated a metabolic acidosis with respiratory concentration
-Will continue to monitor and may consider giving bicarb with half-normal saline as needed if acidosis worsens
#Anemia
-Patient previously admitted for GI bleed, secondary to metastatic duodenal lesion, and gastric ulcers
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
-Hemoglobin is stable at 9.4
-Will continue pantoprazole 40 twice daily p.o.
#Hyperkalemia
-Potassium was 5.6 on admission
-Potassium 5.8 today
-Patient was started on calcium gluconate, insulin and Lokelma as needed for hyperkalemia
-Likely secondary to SUZI, and reduced filtration
-Continue IV fluids
-Will follow patient with q6 BMPs
-Patient was counseled to please take his albuterol breathing treatments as they are for lowering his potassium. Patient was understanding and agreed
#COPD
-Patient does not endorse shortness of breath or difficulty breathing at this time
-Patient takes 1 puff fluticasone PropionSalmeterol BIDPRN for shortness of breath, and guaifenesin
-Continue current meds
#Foot drop
-Patient endorses spontaneous foot drop developing on the right foot only 3 weeks ago
-Etiology unknown
#Hyperlipidemia
-Continue home atorvastatin p.o. 20 mg
#Hypertension
-Continue valsartan 320 mg p.o.
Cholesterol-lowering diet
DVT prophylaxis: Heparin 5000 3 times daily
Full code
Anticipated Discharge: > 48 hours
Subjective/Interval History
-
Date of Service: January 20, 2024
Overnight patient received calcium and bicarb with half-normal saline
Objective Data
-
Labs:
Laboratory Results
01/20/24 01/20/24 01/20/24
00:12 05:23 12:00
WBC 0.7 L*
Hgb 9.4 L
Hct 27.7 L
Plt Count 207 D
Sodium 134 L D 127 L Pending
Potassium 3.7 D 5.8 H D Pending
Chloride 119 H 105 Pending
Carbon Dioxide 12 L* 16 L Pending
BUN 53 H 77 H Pending
Creatinine 1.0 1.5 H Pending
Glucose 68 L 92 Pending
Calcium 4.9 L* D 8.4 D Pending
Total Bilirubin 0.5
AST 68 H
ALT 48
Alkaline Phosphatase 110
01/20/24
18:00
WBC
Hgb
Hct
Plt Count
Sodium Pending
Potassium Pending
Chloride Pending
Carbon Dioxide Pending
BUN Pending
Creatinine Pending
Glucose Pending
Calcium Pending
Total Bilirubin
AST
ALT
Alkaline Phosphatase
Vital Signs:
Vital Signs
Temp Pulse Resp BP Pulse Ox
97.5 F 98 19 98/64 93
01/20/24 07:50 01/20/24 06:00 01/20/24 06:00 01/20/24 06:00 01/20/24 00:20
I&O
01/19/24 01/20/24 01/21/24
06:59 06:59 06:59
Intake Total 1700 / 1700 2505 / 2505
Output Total 770 / 770
Balance 1700 / 1700 1735 / 1735
Review of Systems
-
History Source: Patient
Constitutional: Reports No Symptoms
Respiratory: Reports No Symptoms
Cardiac: Reports No Symptoms
Abdomen/GI: Reports No Symptoms
Genitourinary: Reports Other (Complains of slight burning on urination, started when Sanches was placed)
Musculoskeletal: Reports No Symptoms
Skin: Reports No Symptoms
Physical Exam
-
General: Comfortable, Conversant and Appears Chronically Ill; Negative Pain, Fever or Chills
Respiratory: Clear to Auscultation
Cardiac: Regular Rhythm and S1/S2
GI: Soft and Tender
Musculoskeletal: No Edema
Skin: Warm and Dry
Neuro: Awake, Alert, Oriented and AO x 3
Psych: Calm
Data Reviewed
-
CT Scan: Report Reviewed by me and Discussed with Physician
Labs: Labs Reviewed by me and Discussed with Physician
[2024-01-20 10:20] LABS: Ionized Calcium 1.21 mMOL/L (1.15-1.33)
--- NOTE | 2024-01-20 10:28 | W.CON.NEPH ---
Consultation
-
Date/Time Consultation Requested: 01/20/2024 930
Date/Time Consultation Performed: 01/20/2024 930
Requesting Provider: Dr. Silveira
Performing Provider: Dr. Nicolas
Reason for Consultation: Suzi/hyponatremia hyperkalemia metabolic acidosis
Medical History
-
Chief Complaint: Hyponatremia/SUZI
History of Present Illness:
The patient is a 78-year-old male with a past medical history of metastatic lung cancer who presented to the hospital with diagnosis of C. difficile colitis. There may also be a component of pyelonephritis of his left kidney versus renal infarct.
He had been recently admitted to [facility] in December 2023 with duodenal ulceration with bleed thought to be due to local metastasis. He has received his previous chemotherapy 2 days prior of his admission and had presented with increasing fatigue
and waterry diarrhea. He was eventually diagnosed with C. difficile and required transient pressor support in the setting of evolving septic shock. He is currently on vancomycin and Flagyl for his C. difficile colitis, CAT scan findings support
severe pancolitis. He has also been recently placed on ceftriaxone for possible underlying pyelonephritis of his aforementioned kidney. He does have a history of COPD and is maintained on chronic bronchodilator therapy. He has been maintained on
statin therapy for dyslipidemia. The course of his admission he has developed acute renal failure with creatinine escalation to 1.7 with associated nongap metabolic acidosis hyperkalemia hypocalcemia and hyponatremia with a serum sodium level of
127 and nephrology was asked to see this critically ill patient.
Past Medical History
COPD, HTN, Hypercholesterolemia, Restless leg syndrome, bleeding gastric ulcer, GERD, symptomatic anemia, left adrenal metastases
Social History
Tobacco: Former Smoker
Alcohol: None
Family History
No CKD
Family History: Not Pertinent
Allergies / Home Medications
Allergy/AdvReac Type Severity Reaction Status Date / Time
No Known Allergies Allergy Verified 01/18/24 10:42
�Medication �Instructions �Recorded �Confirmed �Type
atorvastatin 20 mg tablet 20 mg PO DAILY High Cholesterol 11/02/23 01/18/24 History
ropinirole 0.5 mg tablet 0.5 mg PO HS Restless Leg Syndrome 11/02/23 01/18/24 History
valsartan 320 mg tablet 320 mg PO DAILY Blood Pressure 11/02/23 01/18/24 History
fluticasone 500 mcg-salmeterol 50 1 inh inhalation R BIDPRN PRN sob 12/14/23 01/18/24 History
mcg/dose blistr powdr for
inhalation (Wixela Inhub)
folic acid 1 mg tablet 1 mg PO DAILY Supplement 12/14/23 01/18/24 History
vit C 250 mg-vit E 90 mg-zinc 40 1 cap PO BID Supplement 12/14/23 01/18/24 History
mg-copper 1 [id number]
capsule (PreserVision AREDS-2)
therapeutic multivitamin 1 tab PO DAILY Supplement 12/24/23 01/18/24 History
pantoprazole 40 mg tablet,delayed 40 mg PO BID #60 tabs 12/27/23 01/18/24 Rx
release
acetaminophen 500 mg tablet 1,000 mg PO BIDPRN PRN mild pain 01/18/24 01/18/24 History
(Tylenol Extra Strength)
dexamethasone 4 mg tablet 4 mg PO DIRECTED inflammation 01/18/24 01/18/24 History
guaifenesin 100 mg/5 mL oral liquid 200 mg PO Q4H PRN cough 01/18/24 01/18/24 History
lidocaine-prilocaine 2.5 %-2.5 % 1 applic topical DIRECTED Skin 01/18/24 01/18/24 History
topical cream Issues
loperamide 2 mg capsule 2 mg PO DIRECTED PRN diarrhea 01/18/24 01/18/24 History
Review of Systems
-
History Source: Patient
All other systems: Negative unless noted
Constitutional: Fatigue
EENT: No Symptoms
Respiratory: No Symptoms
Cardiac: No Symptoms
Abdomen/GI: Abdominal Pain and Diarrhea
: Other (Indwelling Sanches since this am)
Musculoskeletal: No Symptoms
Skin: No Symptoms
Neurological: No Symptoms
Endocrine: No Symptoms
Hematologic/Lymphatic: No Symptoms
Physical Exam
Vital Signs
Vital Signs
Temp Pulse Resp BP Pulse Ox
97.5 F 98 19 98/64 93
01/20/24 07:50 01/20/24 06:00 01/20/24 06:00 01/20/24 06:00 01/20/24 00:20
Lab Results
01/20/24 05:23
WBC 0.7 10^3/uL (4.8-10.8) L* 01/20/24 05:23
RBC 3.49 10^6/uL (4.70-6.10) L 01/20/24 05:23
Hgb 9.4 g/dL (13.0-18.0) L 01/20/24 05:23
Hct 27.7 % (39.0-52.0) L 01/20/24 05:23
Plt Count 207 10^3/uL (130-400) D 01/20/24 05:23
eGFR 47.95 01/20/24 05:23
Ylg-H-Pbosbeobojv Pept 517 pg/ml 01/18/24 21:08
Albumin 1.9 g/dl (3.5-5.0) L 01/20/24 05:23
Physical Exam
General: AOx3, Nontoxic , NAD
HEENT: PERRL, EOMI, Anicteric, Conjunctivae Clear, Ear/Nose Intact, Hearing Normal, Oropharynx Clear/dry, Dentition Intact, Facial Symmetry, Neck Supple, Neck: Trachea Midline, No JVD and No Thyromegaly, no Bruits
Respiratory: Clear to auscultation bilaterally with decreased breath sounds bilaterally and with normal lung exersion
Cardiac: S1/S2 and Regular Rate/Rhythm tachycardic
Breast: Deferred by me
Abdomen: Distended tender with deep palpation no hepatosplenic
Rectal: Deferred by Provider
Genito-urinary: No Costovertebral Tenderness, Sanches
Extremities: No Clubbing, No Cyanosis and +1 pretibial edema
Skin: No Rash or open lesions
Neuro: Nonfocal/Grossly Intact, CN II-XII (Intact) and Strength (Musculoskeletal exam 5 out of 5 both upper and lower extremities)
Hematologic/Lymphatic: No Cervical Lymphadenopathy, No Submandibular Lymphadenopathy and No Supraclavicular Lymphadenopathy
Psych: Mood/afflect pleasant, Insight/judgement good and Appropriate
Vascular: plus 1pedal and radial pulses
Data Reviewed
-
Radiology: Image Personally Visualized and interpreted (Chest x-ray personally reviewed no evidence of congestive heart failure there is a noted Mediport on the right anterior chest quadrant as well as right middle lobe) and Report Reviewed by me
(CT report reviewed notable for pancolitis no hydronephrosis but possible left renal infarct or pyelonephritis)
CT Scan: Report Reviewed by me (CT of abdomen and pelvis without obstruction but notable for pancolitis)
Labs: Labs Reviewed by me (BMP CBC urine osmolality urinalysis)
Old Records: Reviewed (Reviewed previous sodium of 135 from December 2019)
Assessment/Plan
-
Impression:
Presents with sepsis physiology (Ceftriaxone for Pyelonephritis, Vanco and Flagyl for C. Diff
Hyponatremia
Hyperkalemia
Non gapped Metabolic acidosis
Pancolitis with associated C. difficile
Metastatic lung cancer
Possible left renal infarct and/or pyelonephritis
Neutropenia
Large malignant left adrenal gland mass
Plan:
SUZI:
-Likely due to strong prerenal stimulus in setting of volume depletion from GI losses and and/or hypotension in setting of sepsis
-Maintain MAP 65 or greater with IVFs and pressors if needed
-maintain sanches
-Stress dose hydrocortisone provided as patient had been on outpatient dexamethasone
-UA notes 4+ blood trace
Hyponatremia:
-Likely hypovolemic component in addition to SIADH in setting of malignancy
-Need to maintain MAP of 65 or greater to suppress ADH, currently on IV isotonic fluids
Hyperkalemia/nongap metabolic acidosis
-Nongap metabolic acidosis consistent with diarrhea
-IV fluids provided with sodium bicarbonate
-Hyperkalemia should improve with correction of metabolic acidosis
-Must be cautious with agents such as Kayexalate and/or Lokelma given pancolitis these agents should not be administered
-Insulin and D50 to be utilized if K greater than or equal to 6
-Patient is not an appropriate dialysis candidate given advanced comorbidities
[2024-01-20 11:45] LABS: Cortisol, Random 74.4 ug/dl
[2024-01-20] MEDS: ROCEPHIN 2000 MG IV (11:55)
[2024-01-20] MEDS: STERILE WATER FOR INJECTION 20 ML IV (11:56)
[2024-01-20 12:20] LABS: Urine Albumin Trace (Neg - Trace); Urine Bilirubin Negative (Negative); Urine Character Clear (Clear); Urine Color Yellow; Urine Glucose Negative (Negative); Urine Ketone Trace (Negative); Urine Leukocyte 1+ (Negative); Urine Nitrite Positive (Negative); Urine Occult Blood 4+ (Negative); Urine Specific Gravity 1.015 (<1.030); Urine Urobilinogen Negative (Neg - 1+)
[2024-01-20 12:28] LABS: Urine Bacteria Few (Negative); Urine Red Blood Cell 40-50 /HPF (0-2); Urine Squamous Cell 0-2 /LPF (Few)
[2024-01-20 12:40] LABS: Blood Urea Nitrogen 78 mg/dl (9-20); Calcium 8.2 mg/dl (8.4-10.2); Carbon Dioxide 16 mmol/L (22-30); Chloride 104 mmol/L (98-107); Estimated Creatinine Clearance 35 ml/min; Glucose 93 mg/dl (70-99); Potassium 5.5 mmol/L (3.5-5.1); Sodium 129 mmol/L (135-145); eGFR 41.26
[2024-01-20] MEDS: VENTOLIN NEBULES 2.5 MG INH (14:13)
--- NOTE | 2024-01-20 15:50 | CON.ONC ---
Impression
Impression
dehydration
c-diff colitis/diarrhea
septic shock
SUZI
neutropenia
anemia
stage IV NSCLC - s/p 1 cycle carbo/alimta/keytruda - 7/3 w/ GCSF - 7/5 - [facility]
Plan
Plan
1. C-diff colitis - diarrhea
-flagyl/ vanc as per ID
-IVF/ supportive care
2. Neutropenia
-s/p chemotherapy - though occurring rather quickly following administration
-received GCSF - 7/5 - in ER
-follow CBC
3. NSCLC - s/p 1 cycle carbo/alimta/ keytruda
-cont folic acid
-follow CBC
-f/u w/ Dr. Portillo as outpt for continued management
Will continue to follow with you
Patient History
History of Present Illness
78y/o male seen in consultation today regarding stage IV NSCLC, currently under the care of Dr. Portillo, now s/p 1 cycle of carboplatin/ alimta and keytruda on 01/16/24. He did not receive GSCF as an outpt on 01/17; however, it was administered in the
[facility] on 01/17.
He presented to the [facility] on 01/17 w/ increased fatigue and lethargy and frequent watery diarrhea. C-diff screen in the ER was positive. CBC revealed neutropenia w/ total WBC 700 and ANC 300. Hemoglobin was 9.5g/dl and platelet count was
399,000.
CT abdomen/ pelvis on 01/18 revealed severe pancolitis most compatible with C. difficile colitis, hypoattenuation in the left kidney suggestive of a renal infarct. Pyelonephritis is an alternative consideration.
He has been evaluated by ID w/ antibiotics broadened to include ceftriaxone in addition to metronidazole and vancomycin for c-diff. He is also being followed by nephrology for SUZI/ electrolyte abnormalities.
Clinically, he feels tired. No SOB at rest or chest pain. He notes some abdominal discomfort. No fevers.
Past-Medical/Surgical History
PMH:
stage IV NSCLC - s/p 1 cycle carbo/alimta/ keytruda - 7/3 - GCSF -7/5 - [facility]
COPD
HTN
Hypercholesterolemia
Restless leg syndrome
bleeding gastric ulcer
GERD
Social History
Tobacco: Former Smoker
Alcohol: None
Family History
non-contributoryy
Allergies: NKDA
Patient Medication
�Medication �Instructions �Recorded �Confirmed �Last Taken �Type
atorvastatin 20 mg tablet 20 mg PO DAILY High Cholesterol 11/02/23 01/18/24 01/17/24 History
ropinirole 0.5 mg tablet 0.5 mg PO HS Restless Leg Syndrome 11/02/23 01/18/24 01/17/24 History
valsartan 320 mg tablet 320 mg PO DAILY Blood Pressure 11/02/23 01/18/24 01/17/24 History
fluticasone 500 mcg-salmeterol 50 1 inh inhalation R BIDPRN PRN sob 12/14/23 01/18/24 1 Week Ago History
mcg/dose blistr powdr for ~01/11/24
inhalation (Wixela Inhub)
folic acid 1 mg tablet 1 mg PO DAILY Supplement 12/14/23 01/18/24 01/17/24 History
vit C 250 mg-vit E 90 mg-zinc 40 1 cap PO BID Supplement 12/14/23 01/18/24 01/17/24 History
mg-copper 1 [id number]
capsule (PreserVision AREDS-2)
therapeutic multivitamin 1 tab PO DAILY Supplement 12/24/23 01/18/24 01/17/24 History
pantoprazole 40 mg tablet,delayed 40 mg PO BID #60 tabs 12/27/23 01/18/24 01/17/24 Rx
release
acetaminophen 500 mg tablet 1,000 mg PO BIDPRN PRN mild pain 01/18/24 01/18/24 01/17/24 History
(Tylenol Extra Strength)
dexamethasone 4 mg tablet 4 mg PO DIRECTED inflammation 01/18/24 01/18/24 01/17/24 History
guaifenesin 100 mg/5 mL oral liquid 200 mg PO Q4H PRN cough 01/18/24 01/18/24 1 Week Ago History
~01/11/24
lidocaine-prilocaine 2.5 %-2.5 % 1 applic topical DIRECTED Skin 01/18/24 01/18/24 01/17/24 History
topical cream Issues
loperamide 2 mg capsule 2 mg PO DIRECTED PRN diarrhea 01/18/24 01/18/24 01/18/24 History
2 mg
Active Medications
Generic Name Dose Route Start Last Admin
Trade Name Freq PRN Reason Stop Dose Admin
Acetaminophen 1,000 mg 01/18/24 17:43 01/19/24 23:01
Acetaminophen 500 Mg Tablet PO 02/15/24 17:42 1,000 mg
BIDPRN PRN Administration
mild pain
Albuterol Sulfate 2.5 mg 01/19/24 22:00 01/20/24 14:13
Albuterol Nebs 2.5 Mg/3 Ml Ampul INH 2.5 mg
R Q6 ODILIA Administration
Protocol
Atorvastatin Calcium 20 mg 01/19/24 08:00 01/20/24 08:13
Atorvastatin (Lipitor) 20 Mg Tablet PO 02/16/24 07:59 20 mg
DAILY ODILIA Administration
Ceftriaxone Sodium 2,000 mg 01/20/24 12:00 01/20/24 11:55
Ceftriaxone 2,000 Mg/20 Ml Vial IV 2,000 mg
Q24H ODILIA Administration
Dextrose 12.5 grams 01/19/24 06:07
Dextrose 50% (0.5 Grams/Ml) 50 Ml Syringe IV 02/16/24 06:06
[id number] PRN
hypoglycemia (BG < 70 mg/dL)
Protocol
Folic Acid 1 mg 01/19/24 08:00 01/20/24 08:13
Folic Acid 1 Mg Tablet PO 02/16/24 07:59 1 mg
DAILY ODILIA Administration
Guaifenesin 200 mg 01/18/24 17:43
Guaifenesin Oral Solution (200 Mg/10 Ml) Cup PO 02/15/24 17:42
Q4HPRN PRN
cough
Heparin Sodium 5,000 units 01/20/24 16:00 01/20/24 15:04
Heparin 5,000 Units/Ml 1 Ml Vial SC 02/17/24 15:59 5,000 units
TID ODILIA Administration
Heparin Sodium (Porcine) 500 unit 01/19/24 06:51 01/19/24 08:48
Heparin Flush Pf (100 Unit/Ml) 5 Ml Syringe IV 02/16/24 06:50 500 unit
PRN PRN Administration
SC PORT FLUSH
Hydrocortisone Sodium Succinate 50 mg 01/20/24 20:00
Hydrocortisone Sodium Succinate 100 Mg/2 Ml Vial IV 02/17/24 19:59
Q12 ODILIA
Norepinephrine Bitartrate 4 mg in 250 mls @ 0 mls/hr 01/19/24 12:00 01/19/24 12:12
Levophed IV 250 mls
PER PROTOCOL ODILIA Administration
Protocol
Per Protocol
Metronidazole 100 mls @ 100 mls/hr 01/19/24 14:00 01/20/24 15:02
Flagyl 500 Mg IV 100 mls
Q8H ODILIA Administration
Sodium Bicarbonate 75 meq/ 1,075 mls @ 125 mls/hr 01/20/24 01:15 01/20/24 10:01
Sodium Chloride IV 01/21/24 01:12 1,075 mls
.Q8H36M ODILIA Administration
Lactobacillus/Bifidobacterium 1 cap 01/19/24 08:00 01/19/24 08:48
Lactobac/Bifidobac (Visbiome) PO 02/16/24 07:59 1 cap
DAILY ODILIA Administration
Multivitamins Therapeutic 1 tablet 01/19/24 08:00 01/20/24 08:12
Multivitamin Tablet PO 02/16/24 07:59 1 tablet
DAILY ODILIA Administration
Pantoprazole Sodium 40 mg 01/18/24 20:00 01/20/24 08:12
Pantoprazole 40 Mg Delayed Release Tablet PO 02/15/24 19:59 40 mg
BID ODILIA Administration
Ropinirole HCl 0.5 mg 01/18/24 22:00 01/19/24 22:44
Ropinirole 0.25 Mg Tablet PO 02/15/24 21:59 0.5 mg
HS ODILIA Administration
Fluticasone/Salmeterol 2 puff 01/18/24 20:00 01/20/24 07:43
Advair Hfa 230/21 Inhaler INH 02/15/24 19:59 Not Given
R BID ODILIA
Sodium Chloride 0 flush 01/18/24 17:00 01/19/24 07:01
Sodium Chloride 0.9% (Flush) Syringe IV 02/15/24 16:59 1 flush
PER PROTOCOL ODILIA Administration
Sterile Water 20 ml 01/20/24 12:00 01/20/24 11:56
Sterile Water For Injection 20 Ml Vial IV 02/17/24 11:59 20 ml
Q24H ODILIA Administration
Vancomycin HCl 500 mg 01/19/24 18:00 01/20/24 11:56
Vancomycin Oral Solution 50 Mg/Ml In Oral Syringe PO 500 mg
Q6 ODILIA Administration
Vitamin C/Vitamin E 1 cap 01/18/24 20:00 01/20/24 08:12
Vit C/Vit E/Lutein/Min/Madison-3 (Ocuvite) Capsule PO 02/15/24 19:59 1 cap
BID ODILIA Administration
Review of Systems
-
A ROS was performed w/ pertinent findings as per HPI.
Physical Exam
-
General: Well Developed and No Apparent Distress
HEENT: Negative Jaundice
Cardiology: Normal Sinus Rhythm
Pulmonary: Clear
GI: Soft
Neurology: Non Focal
Labs
Lab Results
WBC 0.7 10^3/uL (4.8-10.8) L* 01/20/24 05:23
RBC 3.49 10^6/uL (4.70-6.10) L 01/20/24 05:23
Hgb 9.4 g/dL (13.0-18.0) L 01/20/24 05:23
Hct 27.7 % (39.0-52.0) L 01/20/24 05:23
MCV 79.4 fL (80.0-94.0) L 01/20/24 05:23
MCH 26.9 pg (27.0-31.0) L 01/20/24 05:23
MCHC 33.9 g/dL (33.0-37.0) 01/20/24 05:23
RDW 16.8 % (11.5-14.5) H 01/20/24 05:23
Plt Count 207 10^3/uL (130-400) D 01/20/24 05:23
MPV 10.3 fL (7.4-10.4) 01/20/24 05:23
Abs Immat Gran (auto) 0.0 10^3/uL (0-0.05) 01/19/24 04:48
Absolute Neuts (auto) 0.3 10^3/uL (1.4-6.5) L* 01/19/24 04:48
Absolute Lymphs (auto) 0.2 10^3/uL (1.2-3.4) L 01/19/24 04:48
Absolute Monos (auto) 0.1 10^3/uL (0.1-0.6) 01/19/24 04:48
Absolute Eos (auto) 0.0 10^3/uL (0-0.7) 01/19/24 04:48
Absolute Basos (auto) 0.0 10^3/uL (0-0.2) 01/19/24 04:48
Immature Gran % 0.0 % (0-0.5) 01/19/24 04:48
Neutrophils % 47.9 % (42.2-75.2) 01/19/24 04:48
Lymphocytes % 33.3 % (20.5-51.1) 01/19/24 04:48
Monocytes % 17.4 % (1.7-9.3) H 01/19/24 04:48
Eosinophils % 0.0 % (0-6) 01/19/24 04:48
Basophils % 1.4 % (0-2) 01/19/24 04:48
Creatinine 1.7 mg/dL (0.7-1.3) H 01/20/24 12:06
Vital Signs
Vital Signs
Temp Pulse Resp BP Pulse Ox
97.4 F 116 30 105/76 97
01/20/24 11:40 01/20/24 14:32 01/20/24 14:32 01/20/24 14:00 01/20/24 14:32
[2024-01-20] MEDS: TYLENOL 1000 MG PO ×2 (16:51→20:47)
[2024-01-20] MEDS: NSS 500 IV (18:35)
[2024-01-20 20:08] LABS: Blood Urea Nitrogen 83 mg/dl (9-20); Calcium 7.7 mg/dl (8.4-10.2); Carbon Dioxide 17 mmol/L (22-30); Chloride 104 mmol/L (98-107); Estimated Creatinine Clearance 33 ml/min; Glucose 100 mg/dl (70-99); Potassium 5.5 mmol/L (3.5-5.1); Sodium 127 mmol/L (135-145); eGFR 38.53
[2024-01-20] MEDS: REQUIP 0.5 MG PO (20:50)
[2024-01-21] VITALS (62 sets, daily range): BP systolic 75–110; BP diastolic 51–68; BMI 24.3
[2024-01-21 00:41] LABS: Blood Urea Nitrogen 84 mg/dl (9-20); Calcium 7.5 mg/dl (8.4-10.2); Carbon Dioxide 17 mmol/L (22-30); Chloride 103 mmol/L (98-107); Estimated Creatinine Clearance 31 ml/min; Glucose 99 mg/dl (70-99); Potassium 5.4 mmol/L (3.5-5.1); Sodium 128 mmol/L (135-145); eGFR 36.11
[2024-01-21] MEDS: VENTOLIN NEBULES INH (03:57)
[2024-01-21] MEDS: TYLENOL 1000 MG PO ×3 (04:57→22:39)
[2024-01-21] MEDS: FIRVANQ 500 MG PO ×4 (05:01→23:27)
[2024-01-21] MEDS: FLAGYL 500 MG 100 IV ×3 (05:01→21:26)
[2024-01-21 05:43] LABS: Absolute Lymphocytes 0.1 10^3/uL (1.2-3.4); Hematocrit 24.3 % (39.0-52.0); Hemoglobin 8.5 g/dL (13.0-18.0); Mean Corpuscular Hgb 27.3 pg (27.0-31.0); Mean Corpuscular Volume 78.1 fL (80.0-94.0); Mean Platelet Volume 11.2 fL (7.4-10.4); Platelet Count 75 10^3/uL (130-400); Red Blood Cell Count 3.11 10^6/uL (4.70-6.10); Red Cell Dist. Width 16.6 % (11.5-14.5)
[2024-01-21 05:53] LABS: ALT (SGPT) 34 U/L (0-50); AST (SGOT) 48 U/L (17-59); Albumin 1.9 g/dl (3.5-5.0); Alkaline Phosphatase 99 U/L (38-126); Blood Urea Nitrogen 86 mg/dl (9-20); Calcium 7.5 mg/dl (8.4-10.2); Carbon Dioxide 18 mmol/L (22-30); Chloride 103 mmol/L (98-107); Estimated Creatinine Clearance 29 ml/min; Glucose 90 mg/dl (70-99); Potassium 5.5 mmol/L (3.5-5.1); Sodium 128 mmol/L (135-145); Total Bilirubin 0.4 mg/dl (0.2-1.3); eGFR 33.95
[2024-01-21 05:57] LABS: White Blood Cell Count 0.3 10^3/uL (4.8-10.8)
[2024-01-21 05:58] LABS: Absolute Neutrophils 0.1 10^3/uL (1.4-6.5)
[2024-01-21] MEDS: ADVAIR HFA 230/21 MCG INHALER 2 PUFF INH ×2 (07:43→20:05)
[2024-01-21] MEDS: VENTOLIN NEBULES 2.5 MG INH ×3 (07:44→20:05)
[2024-01-21] MEDS: LIPITOR 20 MG PO (09:02)
[2024-01-21] MEDS: THERAGRAN 1 TABLET PO (09:02)
[2024-01-21] MEDS: PROTONIX 40 MG PO (09:02)
[2024-01-21] MEDS: FOLVITE 1 MG PO (09:02)
[2024-01-21] MEDS: OCUVITE SOFTGEL 1 CAP PO ×2 (09:02→21:24)
[2024-01-21] MEDS: SOLU-CORTEF 50 MG IV ×2 (09:03→21:25)
[2024-01-21] MEDS: HEPARIN 5000 UNITS SC (09:04)
[2024-01-21] MEDS: NSS 500 IV (09:05)
--- NOTE | 2024-01-21 09:56 | W.PN.NEPH.PH ---
Today's Communication / Plan
-
IVF
Assessment/Plan
-
Impression:
Presents with sepsis physiology (Ceftriaxone for Pyelonephritis, Vanco and Flagyl for C. Diff
Hyponatremia
Hyperkalemia
Non gapped Metabolic acidosis
Pancolitis with associated C. difficile
Metastatic lung cancer
Possible left renal infarct and/or pyelonephritis
Neutropenia
Large malignant left adrenal gland mass
Plan:
follow BMP
IVF with bicarb
for renal artery duplex
watch for further SUZI with hypotension and contrast 01/18
abx for Cdiff
If MAP drops will need levophed
low threshold for putting in ICU
medical treatment of K as needed
critical care time 31 minutes
-
-
Date of Service: January 21, 2024
CC / HPI / ROS
-
Chief Complaint:
SUZI
History of Present Illness:
neutropenic
BP low stable
Acidosis persists
SUZI/Cr up to 2
Review of Systems:
no CP
baseline SOB
diarrhea slowing
Labs
-
Labs:
WBC 0.3 10^3/uL (4.8-10.8) L* 01/21/24 05:00
RBC 3.11 10^6/uL (4.70-6.10) L 01/21/24 05:00
Hgb 8.5 g/dL (13.0-18.0) L 01/21/24 05:00
Hct 24.3 % (39.0-52.0) L 01/21/24 05:00
Plt Count 75 10^3/uL (130-400) L D 01/21/24 05:00
Sodium 128 mmol/L (135-145) L 01/21/24 05:00
Potassium 5.5 mmol/L (3.5-5.1) H 01/21/24 05:00
Chloride 103 mmol/L (98-107) 01/21/24 05:00
Carbon Dioxide 18 mmol/L (22-30) L 01/21/24 05:00
BUN 86 mg/dl (9-20) H 01/21/24 05:00
Creatinine 2.0 mg/dL (0.7-1.3) H 01/21/24 05:00
eGFR 33.95 01/21/24 05:00
Glucose 90 mg/dl (70-99) 01/21/24 05:00
Calcium 7.5 mg/dl (8.4-10.2) L 01/21/24 05:00
Nkw-Y-Qxttaoaetdl Pept 517 pg/ml 01/18/24 21:08
Albumin 1.9 g/dl (3.5-5.0) L 01/21/24 05:00
Physical Exam
-
Vital Signs:
Vital Signs
Temp Pulse Resp BP Pulse Ox
97.4 F 98 32 90/62 97
01/21/24 07:55 01/21/24 09:15 01/21/24 09:15 01/21/24 09:15 01/21/24 08:13
Cardiovascular:: Regular rate and rhythm
Respiratory:: Bilateral: Coarse
Lung Excursion:: Normal
Abdomen:: Distended and Tender
Bowel Sounds:: None
Extremity Edema:: None: Bilateral:
--- NOTE | 2024-01-21 09:59 | W.PN.ID1 ---
Date of Service
Date of Service: January 21, 2024
Today's Communication
continue:
oral vanc, IV ceftriaxone, IV metronidazole
follow clinically
Assessment / Plan
Severe C difficile Infection
Shock - hypovolemic, also possibly septic
Neutropenia - expected with his chemotherapy
UTI
Pancytopenia
Hyperkalemia/Hyponatremia - management per nephrology
- two sets of blood cultures are in progress - remain no growth to date
- follow up urine culture
- sputum culture - contaminated, no need to resend in my opinion
- continue ceftriaxone
- agree with oral vancomycin 500mg PO q6 hours and IV metronidazole at this time - deescalation pending course
- hold probiotics while neutropenic - can restart when anc >1500
- note stress dose steroids, appreciate oncology input
- follow clinically
Chief Complaint
-: Clinical Sepsis and Other (C difficile, Neutropenia)
Subjective / Review of Systems
afebrile
bp mildly hypotensive off of pressors
intermittent tachycardia
progression of leukopenia, anemia, thrombocytopenia
Na 128, K 5.5
cr 2.0 today slight increase
urine culture with 100K GNR
two bms today - hes unsure if they're becoming formed
some mild RUQ tenderness
no appetite yet
Vital Signs / Physical Exam
Vital Signs
Vital Signs
Temp Pulse Resp BP Pulse Ox
97.4 F 98 32 90/62 97
01/21/24 07:55 01/21/24 09:15 01/21/24 09:15 01/21/24 09:15 01/21/24 08:13
Physical Exam
Constitutional: Acutely Ill and Chronically Ill
Cardiovascular: Regular Rate and S1/S2; Negative Murmur or Rub
Pulmonary: Clear and Symmetric; Negative Wheezes or Rales
Gastrointestinal: Soft, Tender (mild RUQ), Non Distended, Normal Bowel Sounds, No Rebound and No Guarding
Genito-Urinary: Clear Urine (dark)
Skin: Warm and Dry; Negative Rash or Jaundice
Neurological: Awake
Objective Data
Lab Data
Lab Results
01/21/24 05:00
01/21/24 05:00
PT 15.8 Sec (11.4-14.6) H 01/18/24 21:08
INR 1.28 01/18/24 21:08
APTT 29.3 Sec (23.4-35.0) 01/18/24 21:08
Estimated Creat Clear 29 ml/min 01/21/24 05:00
Lactic Acid 1.6 mmol/L (0.7-2.0) 01/19/24 09:03
Total Bilirubin 0.4 mg/dl (0.2-1.3) 01/21/24 05:00
AST 48 U/L (17-59) 01/21/24 05:00
ALT 34 U/L (0-50) 01/21/24 05:00
Alkaline Phosphatase 99 U/L (38-126) 01/21/24 05:00
Most recent labs reviewed.
Micro Results:
01/20/24 12:06 Urine Culture - Preliminary
Urine Gram negative bacilli
01/18/24 21:08 Blood Culture - Preliminary
Blood/Venous No Growth in 48 hours- Final report to follow
01/19/24 17:22 Respiratory Culture - Final
Sputum Gram Stain - Final
01/19/24 12:56 Blood Culture - Preliminary
Blood/Venous No Growth in 24 hours- Final report to follow
01/18/24 16:55 C. difficile [facility] Antigen & Toxins - Final
Feces/Stool Toxigenic C.difficile Positive
--- NOTE | 2024-01-21 10:06 | W.PN.HOSP.TC ---
Addendum entered and electronically signed by César Parkinson MD 01/21/24 18:14:
I saw and evaluated the patient. I reviewed the resident�s note and agree with findings and plan as documented in the resident�s note.
1. Shock - hypovolemic/hyovolemic
-Patient got IV fluid over the last few days, 5 L plus in the last 3 days.
-Systolic blood pressure remains soft in 80s
-Will start small dose of vasopressors patient having signs of endorgan damage mainly renal failure
-Question of possible adrenal insufficiency and on IV hydrocortisone 50mg q12h
-Will maintain patient on norepinephrine at 3 mics per minute for next 24 hours
2. C diff colitis
-On oral vancomycin, ongoing diarrhea continue
-Abdominal x-ray ruled out any concern of megacolon
-ID/GI following help appreciated
3. UTI/pyelonephritis
-Urine culture growing gram-negative bacteria, further identification pending
-Maintained on IV Rocephin empirically
4. SUZI
Urinary retention
Metabolic acidosis
-Having urine Redmond catheter at this time, continue monitoring output
-Maintain on IV fluid for last few days, unfortunately third spacing
-Started on vasopressors to improve perfusion, follow-up renal function
-Ordinary Seaman following and discussed with nephrology.
5. Pancytopenia
-S/p G-CSF injection in ER for neutropenia
-Unfortunately patient developed new thrombocytopenia as well
-Getting heparin, hold further dosing until platelet count stabilized
-Thrombocytopenia possibly multifactorial at this point with ongoing C. difficile/chemotherapy/immunotherapy exposure versus HIT
-Oncology following and help appreciated
6. Hyperkalemia
-Low potassium diet when able to take solid
-Suspected driven by renal failure
-off of valsartan
-no overt concern hemolysis
7. Black stool
Multifactorial anemia -possible blood loss/bone marrow suppression related
-discussed with GI, considering holding PPI with active cdiff
Remains high risk for further complication
Discussed care with GI
Total time spent : 60 mins
Original Note:
Today's Communication/Plan
-
start norepinephrine to keep SBP above 100
Assessment / Plan
Assessment / Plan
#Hypovolemic shock/dehydration
-Pressures on admission were 78/52
-Patient had 2 episodes of hypotension previously both of which resolved with IV fluid boluses
-Patient was upgraded to IMU level care
-Patient has been receiving saline boluses as needed for hypotension. S/p 6 L normal saline boluses
-continuous IV fluids 125 mL/h every 8 hours.
-Patient was started on norepinephrine drip at 3 mcg/min, per protocol, with as needed to keep systolic blood pressures greater than 100
-Monitor electrolytes daily CBC and CMP
-Patient was all started on hydrocortisone 50 mg IV every 12 hours, as there is potential concern for adrenal insufficiency as patient was on steroids for 3 days as part of his chemo regimen, patient also has a left adrenal metastases
-Diet was changed to clear liquids
#Prerenal SUZI
-Hourly diarrhea previous 3 days
-Creatinine on admission was 1.7 BUN was 73. Patient's baseline creatinine is 0.8, baseline BUN is 12
-Continue IV fluids
-Renal arterial Doppler was ordered as infarct was seen on CAT scan
-Doppler demonstrated the renal to aortic velocity ratio is consistent with less than 60% stenosis. Elevated resistive indices in the right kidney may be consistent with intraparenchymal disease. Left renal artery and left kidney not well visualized
and cannot be well assessed
#C. difficile
-Patient endorses diffuse watery diarrhea for the past 2 days
-Stool sample was collected and tested for C. difficile antigens
-Sample was positive for C. difficile antigens
-There is concern for potential fulminant C. difficile
-Patient will be started on oral vancomycin 500 mg every 6 hours, and 500 mg metronidazole IV per day total
-CT scan abdomen pelvis with oral contrast was negative for toxic megacolon.
-Abdominal ultrasound was ordered to evaluate for ascites
-Small volume ascites noted on ultrasound
#Lymphopenia
-Patient's white blood cell count decreased from 11.1-0.3, Patient is neutropenic by definition.
-Received granulocyte stimulating factor in ED yesterday, effect not expected for few days at least
-Place patient on neutropenic precautions
-Oncology consulted
#Urinary retention
-No urine output recorded as patient has not been urinating, despite getting large amounts of IV fluid and drinking fluids orally
-Redmond catheter will be initiated
-Strict I's and O's recorded
-Urine studies have been ordered
-FENa was calculated at 0.5 indicative of prerenal etiology
-Strict weights to be recorded on patient
#Metabolic acidosis with respiratory compensation
-ABG was ordered which demonstrated a metabolic acidosis with respiratory concentration
-Patient was started on continuous sodium bicarbonate at 100 mL/h IV
#thrombocytopenia
-platelets decreased from 207 to 75 overnight
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
-4T score is 3
#Anemia
-Patient previously admitted for GI bleed, secondary to metastatic duodenal lesion, and gastric ulcers
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
-Hemoglobin is downtrending at 8.5 was 10.7 on admission
-Will continue pantoprazole 40 daily p.o.
#Hyperkalemia
-Potassium was 5.6 on admission
-Potassium 5.5 today
-Patient was started on calcium gluconate, insulin as needed for hyperkalemia
-Likely secondary to SUZI, metabolic acidosis and reduced filtration
-Continue IV fluids
-Will follow patient with q6 BMPs
-Patient was counseled to please take his albuterol breathing treatments as they are for lowering his potassium. Patient was understanding and agreed
-Lokelma was discontinued in the setting of pancolitis and C. difficile infection
#COPD
-Patient does not endorse shortness of breath or difficulty breathing at this time
-Patient takes 1 puff fluticasone PropionSalmeterol BIDPRN for shortness of breath, and guaifenesin
-Continue current meds
#Foot drop
-Patient endorses spontaneous foot drop developing on the right foot only 3 weeks ago
-Etiology unknown
#Hyperlipidemia
-Continue home atorvastatin p.o. 20 mg
#Hypertension
-Continue valsartan 320 mg p.o.
Cholesterol-lowering diet
Full code
Data:
01/21/2024 renal artery duplex:
IMPRESSION: Right renal artery velocities mild to moderately elevated diffusely throughout. However the renal to aortic velocity ratio is consistent with less than 60% stenosis. Elevated resistive indices in the right kidney may be consistent with
intraparenchymal disease. Left renal artery and left kidney not well visualized and cannot be well assessed on this ultrasound secondary to large mass seen in the vicinity (recent CT scan demonstrates adrenal mass).
01/21/2024 abdominal ultrasound:
IMPRESSION:
Small volume abdominal ascites.
Anticipated Discharge: > 48 hours
Subjective/Interval History
-
Date of Service: January 21, 2024
Patient continuing to have episodes of hypotension, Levophed restarted to keep MAP above 65
Objective Data
-
Labs:
Laboratory Results
01/21/24 01/21/24 01/21/24
00:11 05:00 15:00
WBC 0.3 L*
Hgb 8.5 L
Hct 24.3 L
Plt Count 75 L D
Sodium 128 L 128 L Pending
Potassium 5.4 H 5.5 H Pending
Chloride 103 103 Pending
Carbon Dioxide 17 L 18 L Pending
BUN 84 H 86 H Pending
Creatinine 1.9 H 2.0 H Pending
Glucose 99 90 Pending
Calcium 7.5 L 7.5 L Pending
Total Bilirubin 0.4
AST 48
ALT 34
Alkaline Phosphatase 99
Vital Signs:
Vital Signs
Temp Pulse Resp BP Pulse Ox
97.4 F 98 32 90/62 97
01/21/24 07:55 01/21/24 09:15 01/21/24 09:15 01/21/24 09:15 01/21/24 08:13
I&O
01/20/24 01/21/24 01/22/24
06:59 06:59 06:59
Intake Total 2505 / 2505 2014
Output Total 770 / 770 450 / 450
Balance 1735 / 1735 1565 / 1565
Review of Systems
-
History Source: Patient
Constitutional: Reports No Symptoms
Respiratory: Reports No Symptoms
Cardiac: Reports No Symptoms
Abdomen/GI: Reports Abdominal Pain and Diarrhea; Denies Bloody Stools
Genitourinary: Reports Other (Not producing much urine)
Neuro: Reports No Symptoms
Physical Exam
-
General: Comfortable, Conversant and Appears Chronically Ill; Negative Respiratory Distress, Pain, Fever or Chills
Respiratory: Clear to Auscultation and Crackles (Some crackles heard)
Cardiac: Regular Rhythm and S1/S2
GI: Soft, Nontender and Distended; Negative Normal Bowel Sounds
Genito-urinary: No Costovertebral Tender and Redmond; Negative Bloody Urine
Musculoskeletal: Edema, Right Lower Extrem and Edema, Left Lower Extrem
Neuro: Awake, Alert, Oriented and AO x 3
Psych: Calm and Intact Judgement/Insight
Data Reviewed
-
Ultrasound: Report Reviewed by me and Discussed with Physician
Labs: Labs Reviewed by me and Discussed with Physician
--- NOTE | 2024-01-21 10:28 | W.PN.ONC2 ---
Today's Communication / Plan
-
- continue CBC monitoring, monitor fever curve.
- abx coverage for C diff colitis
Impression
Impression
dehydration
c-diff colitis/diarrhea
septic shock
SUZI
neutropenia
anemia
stage IV NSCLC - s/p 1 cycle carbo/alimta/keytruda - 7/3 w/ GCSF - 7/5 - [facility] ER
Plan
Plan
1. C-diff colitis - diarrhea
-flagyl/ vanc as per ID
-IVF/ supportive care
2. Neutropenia
-s/p chemotherapy - though occurring rather quickly following administration
-received GCSF (Fulphilia- LA agent) - 7/5 - in ER
-follow CBC
3. NSCLC - s/p 1 cycle carbo/alimta/ keytruda
-cont folic acid
-follow CBC
-f/u w/ Dr. Portillo as outpt for continued management
Will continue to follow with you
Subjective/Objective
Chief Complaint
neutropenic fever, C-diff
Subjective
pt noted improvement in diarrhea. denies fevers, chills, abdominal pain. He notes fatigue.
Vital Signs:
Vital Signs
Temp Pulse Resp BP Pulse Ox
97.4 F 98 32 90/62 97
01/21/24 07:55 01/21/24 09:15 01/21/24 09:15 01/21/24 09:15 01/21/24 08:13
Lab Results:
Laboratory Data
WBC 0.3 10^3/uL (4.8-10.8) L* 01/21/24 05:00
Hgb 8.5 g/dL (13.0-18.0) L 01/21/24 05:00
Plt Count 75 10^3/uL (130-400) L D 01/21/24 05:00
PT 15.8 Sec (11.4-14.6) H 01/18/24 21:08
INR 1.28 01/18/24 21:08
APTT 29.3 Sec (23.4-35.0) 01/18/24 21:08
eGFR 33.95 01/21/24 05:00
Physical Exam
Cardiology: Normal Sinus Rhythm
Pulmonary: Clear
GI: Soft and Distended
Extremities: No Edema
Neuro: Non Focal
Review of Systems
Review of Systems
Constitutional: Reports Fatigue; Denies Fever
Respiratory: Denies Dyspnea
Cardiovascular: Denies Chest Pain
Gastrointestinal: Reports Diarrhea; Denies Nausea/Vomiting
Neurological: Denies Headache
--- NOTE | 2024-01-21 10:44 | CON.GI ---
Addendum entered and electronically signed by Kym Correa MD 01/21/24 18:06:
I saw and examined the patient.
The MEDICAL TECHNICIAN ASSISTANT or PA's note was reviewed and I agree with the note.
Comment: 78-year-old male with recent diagnosis of metastatic adenocarcinoma of the lung, recent GI bleeding December 2023, noted to have malignant duodenal lesion, consistent with lung met, he did receive 1 cycle of carboplatinum, Alimta and Keytruda
01/16/2024, presenting with fatigue and diarrhea. Noted to have neutropenia, received dose of G-CSF. Also noted to have electrolyte abnormalities with hyponatremia, hyperkalemia, elevated creatinine, low platelets, stool for C. difficile positive.
He is currently on vancomycin 500 mg every 6 hours and Flagyl 500 mg every 8 hours. GI consult called in for C. difficile. ID also following patient.
Abdomen-softly distended, discomfort on palpation without any guarding or rigidity.
-Diarrhea in the setting of immunosuppression, recent immunotherapy, positive C. difficile
Has been having 2-3 episodes of loose stool in the hospital.
On oral vancomycin 500 mg every 6 hours and Flagyl 500 mg every 8 hours per ID.
Agree with cutting back on the pantoprazole to once daily, history of gastric ulcers 12/2023.
Abdominal x-ray today showing possible small bowel ileus.
Currently on clear liquid diet, will add Ensure clear as well.
Monitor electrolytes and replete as needed.
Other stool cultures, Cryptosporidium and Giardia pending.
Will monitor closely.
Original Note:
Consultation
-
Date/Time Consultation Requested: 01/21/24 @ 10:08
Date/Time Consultation Performed: 01/21/24 @ 11:00
Requesting Provider: Dr. Crandall/Dr. Parkinson
Performing Provider: PATRICIA Breen; Dr. Kym Correa
Reason for Consultation: Cdiff, septic shock, r/o toxic megacolon
Medical History
Chief Complaint / HPI
Chief Complaint: dehydration
History of Present Illness:
The pt is a 78 yo male with a PMH significant for chronic cough, COPD, hypertension, GERD, restless leg syndrome, metastatic adenocarcinoma of the lung status post bronchoscopy 11/05/2023 as well as recent left adrenal mass biopsy on 12/06/2023,
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 We are being asked to
evaluate for concern for toxic megacolon with +Cdiff and worsening sepsis. Upon review of records, he was initially seen by our group in November for symptomatic anemia. He was transfused at that time and endoscopic evaluation was deferred given no
active signs of bleeding and no GI involvement on PET scan. He was seen again in December for anemia and GI bleeding with findings of gastric ulcers and malignant duodenal lesion with path consistent with known lung CA. He was stabilized and further
management was deferred to oncology. He was placed on PPI daily at that time given his ulcers and advised to continue on this indefinitely. He presented again to the hospital with complaints of diarrhea, fatigue, and decreased appetite. He notes he
has started on chemotherapy last week and developed significant diarrhea. He was using Imodium which did help the diarrhea, producing a 2-3 loose bowel movements a day, but he began to feel progressively weak. He notes there was some black in the
stool but it primarily has been brown. He notes he was feeling progressively worse and had outpatient blood work, which showed a low white blood cell count, therefore was advised to go to the ER. Upon evaluation he was found to be neutropenic. He
was also significantly acidotic with electrolyte disturbances and with acute kidney injury. Stool studies were sent for C. difficile which were positive and he was placed on oral vancomycin along with IV metronidazole. He did have hypotension
which improved with IV fluids although with very soft blood pressures with systolic BP's in the 80s to 90s. CT imaging on admission did reveal severe pancolitis. Other findings as noted below. He was admitted to the IMU for further monitoring and
evaluation. He was evaluated by infectious disease for antibiotic management. He was also evaluated by nephrology given his renal function and placed on a bicarb drip. He did receive GCSF in the ER on evaluation. Per oncology notes he is status
post 1 cycle of carbo/alimta/Keytruda. He did also receive stress dose steroids given concern for adrenal insufficiency, and had been on steroids with his chemo regimen. Urine analysis was showing signs of infection, and urine culture now growing
gram-negative bacteria. Ceftriaxone was added to his regimen as well. Blood cultures have been negative to date. As his ANC is 400 probiotics were held. He denies any abdominal pain, nausea, or vomiting. He is tolerating a clear liquid diet.
He has had 2 liquid stools today. He is unsure if these are improving or not. He otherwise denies any GI complaints. He does feel forgetful. He feels very fatigued as well. He does not remember when his last colonoscopy was. EGD in December as
mentioned above. He is on PPI BID for recent PUD. With no obvious signs of toxic megacolon pertinent lab findings include WBC 0.3, hemoglobin 8.5, MCV 78.1, platelets 75,000, NADIR 400, sodium 128, potassium 5.5, total CO2 18, BUN 86, creatinine 2.0,
calcium 7.5, total bilirubin 0.4, AST 48, ALT 34, alk phos 99, total protein 4.0, albumin 1.9. Renal US is pending given CT findings showing possible renal infarct.
Past Medical History
Past Medical History: Cancer (Metastatic lung cancer), COPD, GERD, HTN, Hypercholesterolemia and Other (restless leg syndrome, GI bleed 2/2 PUD, chronic cough, adrenal mass)
Past Surgical History: Orthopedic (rotator cuff surgery)
Family History
Family History: Reviewed & Not Pertinent
Allergies / Home Medications
Allergy/AdvReac Type Severity Reaction Status Date / Time
No Known Allergies Allergy Verified 01/18/24 10:42
�Medication �Instructions �Recorded
atorvastatin 20 mg tablet 20 mg PO DAILY High Cholesterol 11/02/23
ropinirole 0.5 mg tablet 0.5 mg PO HS Restless Leg Syndrome 11/02/23
valsartan 320 mg tablet 320 mg PO DAILY Blood Pressure 11/02/23
fluticasone 500 mcg-salmeterol 50 1 inh inhalation R BIDPRN PRN sob 12/14/23
mcg/dose blistr powdr for
inhalation (Wixela Inhub)
folic acid 1 mg tablet 1 mg PO DAILY Supplement 12/14/23
vit C 250 mg-vit E 90 mg-zinc 40 1 cap PO BID Supplement 12/14/23
mg-copper 1 [id number]
capsule (PreserVision AREDS-2)
therapeutic multivitamin 1 tab PO DAILY Supplement 12/24/23
pantoprazole 40 mg tablet,delayed 40 mg PO BID #60 tabs 12/27/23
release
acetaminophen 500 mg tablet 1,000 mg PO BIDPRN PRN mild pain 01/18/24
(Tylenol Extra Strength)
dexamethasone 4 mg tablet 4 mg PO DIRECTED inflammation 01/18/24
guaifenesin 100 mg/5 mL oral liquid 200 mg PO Q4H PRN cough 01/18/24
lidocaine-prilocaine 2.5 %-2.5 % 1 applic topical DIRECTED Skin 01/18/24
topical cream Issues
loperamide 2 mg capsule 2 mg PO DIRECTED PRN diarrhea 01/18/24
Review of Systems
-
History Source: Patient
Constitutional: Reports Fever, Fatigue and Chills
EENT: Reports No Symptoms
Respiratory: Reports No Symptoms
Cardiac: Reports No Symptoms
Abdomen/GI: Reports Abdominal Pain, Diarrhea and Black Stools
: Reports No Symptoms
Musculoskeletal: Reports No Symptoms
Skin: Reports No Symptoms
Neurological: Reports Weakness (generalized)
Vital Signs
Temp Pulse Resp BP Pulse Ox
97.4 F 98 32 90/62 97
01/21/24 07:55 01/21/24 09:15 01/21/24 09:15 01/21/24 09:15 01/21/24 08:13
Physical Exam
Exam
General: Other (Ill appearing male in NAD)
HEENT: Normocephalic, Anicteric and Atraumatic
Respiratory: Clear
Cardiac: S1/S2 and Regular Rhythm (SR/ST on tele montior)
Breast: N/A
GI: Soft, Non Tender and Distended (mildly distened in the upper abdomen; hypoactive bowel sounds)
Rectal: Deferred by Provider
Skin: Warm, Dry and Other (pale)
Neuro: Awake, Alert and Other (forgetful)
Psych: Calm
Results
WBC 0.3 10^3/uL (4.8-10.8) L* 01/21/24 05:00
Hgb 8.5 g/dL (13.0-18.0) L 01/21/24 05:00
Hct 24.3 % (39.0-52.0) L 01/21/24 05:00
MCV 78.1 fL (80.0-94.0) L 01/21/24 05:00
Plt Count 75 10^3/uL (130-400) L D 01/21/24 05:00
Absolute Neuts (auto) 0.1 10^3/uL (1.4-6.5) L* 01/21/24 05:00
PT 15.8 Sec (11.4-14.6) H 01/18/24 21:08
INR 1.28 01/18/24 21:08
APTT 29.3 Sec (23.4-35.0) 01/18/24 21:08
Sodium 128 mmol/L (135-145) L 01/21/24 05:00
Potassium 5.5 mmol/L (3.5-5.1) H 01/21/24 05:00
Chloride 103 mmol/L (98-107) 01/21/24 05:00
Carbon Dioxide 18 mmol/L (22-30) L 01/21/24 05:00
BUN 86 mg/dl (9-20) H 01/21/24 05:00
Creatinine 2.0 mg/dL (0.7-1.3) H 01/21/24 05:00
Calcium 7.5 mg/dl (8.4-10.2) L 01/21/24 05:00
Total Bilirubin 0.4 mg/dl (0.2-1.3) 01/21/24 05:00
AST 48 U/L (17-59) 01/21/24 05:00
ALT 34 U/L (0-50) 01/21/24 05:00
Alkaline Phosphatase 99 U/L (38-126) 01/21/24 05:00
Diagnostic Image Results:
01/19/24 CT A/P w/IV and oral: IMPRESSION:
1. Severe pancolitis most compatible with C. difficile colitis.
2. Geographic region of hypoattenuation in the left kidney suggestive of a renal infarct. Pyelonephritis is an alternative consideration.
3. Bilateral nephrolithiasis.
4. Urinary bladder calculi.
5. 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
6. Mild abdominal ascites.
7. Small bilateral pleural effusions.
8. Small pericardial effusion.
01/21/24 US abdomen: Small volume abdominal ascites.
Prior GI Procedures:
EGD: 12/25/23 Dr. Maharaj: Overall, patient had multiple areas that are likely
the source of his UGI bleeding, but the most likely
was the lesion in 2nd portion which may be a
metastatic lesion.
- Small hiatal hernia, otherwise no esophageal lesions.
- Non-bleeding gastric ulcers with no stigmata of
bleeding. Biopsied.
- Non-bleeding duodenal ulcers.
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
primary - oozing and likely the culprit for his black
stools and anemia requiring transfusion. Biopsied.
Colonoscopy: Cologuard x 2 (negative)
Assessment / Plan
-
The pt is a 78 yo male with a PMH significant for chronic cough, COPD, hypertension, GERD, restless leg syndrome, metastatic adenocarcinoma of the lung status post bronchoscopy 11/05/2023 as well as recent left adrenal mass biopsy on 12/06/2023,
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 We are being asked to
evaluate for concern for toxic megacolon with +Cdiff and worsening sepsis. The patient had recent diagnosis of metastatic adenocarcinoma of the lungs, recently started on chemotherapy this past week, now neutropenic with CT imaging showing
pancolitis consistent with C. difficile upon stool studies. He has been hypotensive and acidotic, consistent for septic shock although not requiring pressors at this time. Infectious disease and oncology are following. He was started on oral
vancomycin at 500 mg every 6 hours along with IV metronidazole and IV ceftriaxone. Urine findings consistent with gram-negative bacteria in urine culture pending sensitivities. He continues with loose stools, without abdominal pain. His ANC is
400. Has also been persistently hyponatremic although stable. His renal function has been progressively worsening as well and nephrology is following. Has had some drop in his hemoglobin and platelets although with no active signs of bleeding.
He had prior EGD in December showing gastric and duodenal ulcers, with duodenal lesion consistent with his already known metastatic disease.
Problem list:
-C. difficile positive
-CT consistent with severe pancolitis, renal infarct
-Septic shock
-UTI
-Metastatic lung cancer on chemotherapy
-Hyponatremia
-Left adrenal mass
-Microcytic anemia, acute on chronic
-Pancytopenia
Other pertinent medical history:
-hypertension
-Gerd
-COPD
-Chronic cough
Recommendations:
-Ongoing diarrhea could be multifactorial given recent chemotherapy initiation versus C. difficile versus antibiotics versus other. Keytruda also can induce checkpoint inhibitor colitis.
---CT findings consistent with pancolitis, with C. difficile positive toxin on stool studies. Started on IV Flagyl and oral vancomycin. IV ceftriaxone was added due to presence of gram-negative UTI. Currently does not have overall symptoms of
toxic megacolon, but given the clinical picture and the fact he was taking Imodium at home cannot rule this out. He has no pain but continues with loose stools, 2 this morning.
-At this time we will check an x-ray of the abdomen to evaluate for colonic distention/signs of toxic megacolon. If concern would suggest surgery evaluation.
-Continue on antibiotic regimen as per infectious disease for Cdiff/UTI
-NO probiotics as per ID given low ANC
-Will reduce pantoprazole to 40 mg once daily given the presence of C. difficile infection as this can increase risk of enteric infections. He is immunocompromise and has been in and out of the hospital recently increasing his risk and
susceptibility as well.
-Avoid use of Imodium or other antidiarrheal medications at this time
-Monitor stool output
-Will also add stool studies for stool WBC, stool culture, and Giardia/crypto to rule out coexisting infection
-Ensure adequate perfusion/hemodynamic stability; he has been monitored closely in the IMU
-Trend H/H, he has no signs of active bleeding
-Oncology is following for neutropenia
-Further plan pending above
Data Reviewed
-
CT Scan: Report Reviewed by me and Discussed with Physician
-
-
Thank you for consultation and allowing me to participate in the patient's care. Please call the supervisor electronics testing GI physician during the after hours with any questions or concerns.
[2024-01-21] MEDS: SODIUM BICARBONATE 1150 MEQ IV (11:01)
[2024-01-21] MEDS: STERILE WATER FOR INJECTION 20 ML IV (13:05)
[2024-01-21] MEDS: ROCEPHIN 2000 MG IV (13:05)
--- NOTE | 2024-01-21 15:39 | PTCARENOTE ---
Patient BP's remain soft. Patient given several bolus. IV levo started at 3cg/11.3 mls. Patient alert and oriented. He is very forgetful. INC of 2 liquid stools today. Redmond draining small amount of akira urine. Patient on clear liquid diet
appetite poor. Patient using call díaz appropriately. Will monitor frequently.
[2024-01-21] MEDS: LEVOPHED 250 IV (15:57)
--- NOTE | 2024-01-21 16:14 | CM ---
Addendum entered by Annemarie Reyes RN 01/21/24 16:31:
Spoke with patient's Venus; shares that patient is currently undergoing outpatient chemo at the [facility].
The is working with the Oncology SW Gurpreet who is going to help them with the rent, mobile home insurance and [employer] for TV, phone & internet. Food is being delivered through [employer].
feels like she can assist the patient with showering and ambulating. She prefers not to have a caregiver but if needed Gurpreet the SW said she would help set that up.
Plan follow up after PT/OT Evals.
Original Note:
Patient with Hx metastatic lung CA with Dx Septic Shock, C diff colitis. O2 2L. Receiving Levophed gtt, IV Abx, IV Solucortef.
Spoke with patient who resides with his in a mobile home with 3 STEPHANIE.
The patient has been independent in ADLs and ambulation using his SPC.
He states he has been experiencing weakness and difficulty caring for himself at home recently.
His cannot assist him very much as she has some medical problems including dropfoot and has difficulty walking, however she assists patient with his medications. does not drive.
The patient has no children and has no outside caregivers, stating his has resisted having someone come into the home.
Patient says he has food delivered.
Patient states he worries about affording food and his rent- he says a SW has been helping with that (details unspecified). Patient prefers CM speak to his in that regard.
DME - [facility], R[facility]
VN - current with VN for SN & PT
SNF - none
PCP - Brian White
Pharmacy - [facility]
Phone call to Venus, patient's ; left message requesting callback for d/c planning.
Message to Dr Parkinson requesting PT/OT Evals when medically appropriate/less medically acute.
Plan follow up after PT/OT Evals.
Plan follow up with about food/rent/utility insecurity, any transport issues.
--- NOTE | 2024-01-21 17:38 | PTCARENOTE ---
IV levo drip started at 1557 AT 3 mcg, SBP to be keep to 100. Drip currently at 6 mcg/22.5 mls. IV fluids currently on hold. Urine output today 150 mls akira/tea colored urine.
--- NOTE | 2024-01-21 20:20 | TRANSFER ---
Transfer order to ICU placed by aye CORDERO. Pt order to keep sys bp above 100. Pt currently on levo at 8mcg (IMU max) sys in the 80's. Report given to RECTIFIER OPERATOR.
[2024-01-21] MEDS: REQUIP 0.5 MG PO (21:34)
[2024-01-21 21:59] LABS: Lactic Acid 1.6 mmol/L (0.7-2.0)
--- NOTE | 2024-01-21 22:04 | PTCARENOTE ---
Received patient around 2100, AAOx3, following commands, denying pain. Normal sinus, 90s, BP 80s-90s/50s-60s, maintained on levo gtt and titrating to maintain MAP >65. Normothermic, +1 bilateral pitting edema. On 2 liters nasal cannula, lung sounds
diminished, crackles in the bases. Tachypneic and shallow breathing. Abdomen round, distended, hypoactive bowel sounds. Redmond in place for retention draining akira urine. Right subcutaneous port patent, WNL, right forearm IV patent, WNL. CHG bath
done, warm blanket provided. Call díaz within reach.
[2024-01-21 22:12] LABS: Blood Urea Nitrogen 94 mg/dl (9-20); Calcium 7.4 mg/dl (8.4-10.2); Carbon Dioxide 15 mmol/L (22-30); Chloride 100 mmol/L (98-107); Glucose 132 mg/dl (70-99); Magnesium 2.6 mg/dl (1.6-2.3); Phosphorus 7.2 mg/dl (2.5-4.5); Potassium 5.5 mmol/L (3.5-5.1); Sodium 126 mmol/L (135-145)
[2024-01-21 22:26] LABS: Estimated Creatinine Clearance 26 ml/min; eGFR 28.71
[2024-01-21] MEDS: FLEXBUMIN 100 IV (22:32)
[2024-01-21] MEDS: CALCIUM GLUCONATE 130 MG IV (23:22)
[2024-01-22] VITALS (99 sets, daily range): BP systolic 77–147; BP diastolic 49–118; BMI 25.0
--- NOTE | 2024-01-22 00:27 | PTCARENOTE ---
Tylenol given for mild pain, patient repositioned. Otherwise patient assessment unchanged from previous, call díaz within reach.
[2024-01-22] MEDS: VENTOLIN NEBULES 2.5 MG INH ×2 (01:14→07:41)
--- NOTE | 2024-01-22 04:13 | PTCARENOTE ---
Patient increasingly more confused, reoriented and emotional support provided. Repositioned. Otherwise patient assessment unchanged from previous.
[2024-01-22 04:24] LABS: Absolute Lymphocytes 0.1 10^3/uL (1.2-3.4); Hematocrit 22.2 % (39.0-52.0); Hemoglobin 7.8 g/dL (13.0-18.0); Mean Corp Hgb Conc. 35.1 g/dL (33.0-37.0); Mean Corpuscular Hgb 27.9 pg (27.0-31.0); Mean Corpuscular Volume 79.3 fL (80.0-94.0); Red Cell Dist. Width 16.8 % (11.5-14.5)
[2024-01-22 04:42] LABS: Lactic Acid 1.3 mmol/L (0.7-2.0)
[2024-01-22 04:45] LABS: ALT (SGPT) 60 U/L (0-50); AST (SGOT) 119 U/L (17-59); Albumin 2.1 g/dl (3.5-5.0); Alkaline Phosphatase 114 U/L (38-126); Blood Urea Nitrogen 94 mg/dl (9-20); Calcium 7.7 mg/dl (8.4-10.2); Carbon Dioxide 17 mmol/L (22-30); Chloride 100 mmol/L (98-107); Glucose 117 mg/dl (70-99); Potassium 5.5 mmol/L (3.5-5.1); Sodium 126 mmol/L (135-145); Total Bilirubin 0.5 mg/dl (0.2-1.3); Total Protein 4.2 g/dl (6.3-8.2)
[2024-01-22 05:02] LABS: Estimated Creatinine Clearance 23 ml/min; eGFR 24.78
[2024-01-22] MEDS: FLAGYL 500 MG 100 IV ×3 (05:27→23:05)
[2024-01-22 05:38] LABS: White Blood Cell Count 0.1 10^3/uL (4.8-10.8)
[2024-01-22 05:45] LABS: Platelet Count 22 10^3/uL (130-400)
[2024-01-22] MEDS: TYLENOL 1000 MG PO ×3 (06:18→19:40)
--- NOTE | 2024-01-22 07:07 | CON.INTV ---
Consultation
Consultation Request
Date/Time Consultation Requested: 01/22/24
Date/Time Consultation Performed: 01/22/24
Performing Provider: Ky
Reason for Consultation: Critical Care
Medical History
-
History of Present Illness:
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
and diffuse watery diarrhea. Patient reports that the diarrhea was initially black, which has resolved. Last received chemotherapy 2 days prior to admission. Received 2 L of normal saline in the ER, admitted 01/18/2024 for hypovolemia, dehydration,
SUZI. Throughout admission, patient was noted to have CT imaging with severe pancolitis; he is C. difficile+.
Patient continues to have hypotension, systolic noted to be in the 80s despite greater than 5 L normal saline administration over the past 72 hours. Was started on a low dose pressor and transferred to ICU.
Past Medical History
Past Medical History: Other (see list below)
Social History
Tobacco: Former Smoker
Alcohol: None
Drug: None
Family History
Family History: Reviewed & Not Pertinent
Allergies / Home Medications
Allergies
Allergy/AdvReac Type Severity Reaction Status Date / Time
No Known Allergies Allergy Verified 01/18/24 10:42
Home Medications
�Medication �Instructions �Recorded �Confirmed �Last Taken �Type
atorvastatin 20 mg tablet 20 mg PO DAILY High Cholesterol 11/02/23 01/18/24 01/17/24 History
ropinirole 0.5 mg tablet 0.5 mg PO HS Restless Leg Syndrome 11/02/23 01/18/24 01/17/24 History
valsartan 320 mg tablet 320 mg PO DAILY Blood Pressure 11/02/23 01/18/24 01/17/24 History
fluticasone 500 mcg-salmeterol 50 1 inh inhalation R BIDPRN PRN sob 12/14/23 01/18/24 1 Week Ago History
mcg/dose blistr powdr for ~01/11/24
inhalation (Wixela Inhub)
folic acid 1 mg tablet 1 mg PO DAILY Supplement 12/14/23 01/18/24 01/17/24 History
vit C 250 mg-vit E 90 mg-zinc 40 1 cap PO BID Supplement 12/14/23 01/18/24 01/17/24 History
mg-copper 1 [id number]
capsule (PreserVision AREDS-2)
therapeutic multivitamin 1 tab PO DAILY Supplement 12/24/23 01/18/24 01/17/24 History
pantoprazole 40 mg tablet,delayed 40 mg PO BID #60 tabs 12/27/23 01/18/24 01/17/24 Rx
release
acetaminophen 500 mg tablet 1,000 mg PO BIDPRN PRN mild pain 01/18/24 01/18/24 01/17/24 History
(Tylenol Extra Strength)
dexamethasone 4 mg tablet 4 mg PO DIRECTED inflammation 01/18/24 01/18/24 01/17/24 History
guaifenesin 100 mg/5 mL oral liquid 200 mg PO Q4H PRN cough 01/18/24 01/18/24 1 Week Ago History
~01/11/24
lidocaine-prilocaine 2.5 %-2.5 % 1 applic topical DIRECTED Skin 01/18/24 01/18/24 01/17/24 History
topical cream Issues
loperamide 2 mg capsule 2 mg PO DIRECTED PRN diarrhea 01/18/24 01/18/24 01/18/24 History
2 mg
Review of Systems
-
History Source: Patient
All other systems: Negative unless noted
Vitals / Labs / Diagnostic Testing
Vital Signs
Temp Pulse Resp BP Pulse Ox
99.0 F 95 24 96/56 90
01/22/24 03:25 01/22/24 06:45 01/22/24 06:45 01/22/24 06:45 01/22/24 06:30
Lab Data
01/22/24 03:59
01/22/24 03:59
Microbiology
01/20/24 12:06 Urine Urine Culture - Preliminary
Gram negative bacilli
01/18/24 21:08 Blood/Venous Blood Culture - Preliminary
No Growth in 72 hours- Final report to follow
01/19/24 12:56 Blood/Venous Blood Culture - Preliminary
No Growth in 48 hours- Final report to follow
01/19/24 17:22 Sputum Respiratory Culture - Final
01/19/24 17:22 Sputum Gram Stain - Final
Diagnostic Testing:
Physical Exam
-
HEENT: Normocephalic, Anicteric and Moist Mucous Membranes
Cardiovascular: S1/S2 and Regular Rhythm
Respiratory: Clear and Non-Labored Respirations
GI: Soft, Non Distended and Non Tender
Neurology: Awake, Alert, Oriented, AO x 3 and No Motor Deficits
Skin: Warm, Dry and Good Color
General: Comfortable, Poor Appetite and Other (chronically ill appearing, thin)
Assessment
-
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
and diffuse watery diarrhea. Received 2 L of normal saline in the ER, admitted 01/18/2024 for hypovolemia, dehydration, SUZI. Throughout admission, patient was noted to have CT imaging with severe pancolitis; he is C. difficile+. Patient continued to
have hypotension, systolic noted to be in the 80s despite greater than 5 L normal saline administration over the past 72 hours. Was started on a low dose pressor and transferred to ICU.
Septic shock
Acute severe C-diff pancolitis
Pancytopenia
Metabolic acidosis
Hyponatremia
Hyperkalemia
Hypocalcemia
SUZI, creatinine peak 2.6, rising
Conditions present prior to admission
Stage IV NSCLC - s/p 1 cycle carbo/alimta/keytruda
Neutropenia s/p GCSF 01/15
Lung mass s/p bronchoscopy 11/05/23
Admission 12/23-12/28/23 for GIB related to radiation colitis
COPD w/ moderate obstruction (10/12/23 FEV1 1.76L 66%, ratio 0.65)
Former smoker, 60 pack years
RLS
Primary hypertension
Plan
No current signs of metabolic encephalopathy or MS changes/following commands
Denies pain at this time.
Pain/sedation: PRN
RASS goals: 0
Hemodynamically unstable, requiring pressors.
Requiring pressors: levophed at 2 mcgs, received >5L NSS
Cardiac history reviewed--HTN
No ECHO in past, will obtain new study
Hold home meds
Monitor on telemetry
Oxygen needs: stable on supplemental O2, not known to be on home O2 use
Prior history of lung disease: moderate COPD, last PFT reviewed; known met stage IV NSCLC
Resumed on home inhalers
Supplemental O2 as indicated to maintain sats > 89%
CXR/CT reviewed indicating NAD/stable lung tumor
Can repeat as needed
Diet advancement, poor PO intake
Diarrhea ongoing, maintain IVFs
GI eval
Regional Sales Manager recommendations
Aspiration precautions, HOB > 30 degrees
Speech therapy eval can be considered if at elevated risk
GI prophylaxis if indicated for mechanical ventilation >48 hours, prior history of GERD, stress ulcer formation in the critically ill
SUZI present, renal following
May need CRRT, HD cath placement today
No history of renal disease--induced by dehydration/chemotherapy/shock
Void trials
Follow urine output, critical I/Os
Replete electrolytes as needed
Fever and increased WBC on presentation, +C Diff colitis
Severe pancolitis on CT
ID following
Started on empiric antibiotics: CTX IV, vanco PO, FLG IV
Cultures sent/pending
Blood neg
Sputum + dakota/during bronch bx 11/05/23, 01/18 sput neg
Urine + Kleb/GNB
Stool + C diff tox
Follow fever trend, WBC count
CBC reviewed, pancytopenic
Onc following, likely induced by treatment
DVT prophylaxis as assessed based on risk, including mechanical SCDs
Can transfuse if indicated for Hb <7, plt < 10
Transfusions: will prepare for plt transfusion in preparation for procedures
INR WNL
No prior h/o diabetes or thyroid disease
Monitor accuchecks PRN/SS coverage if needed
We will follow
Diagnostic Data
CXR 01/18/24- Right midlung opacity compatible with the patient's known lung cancer.
Abd US 01/21/24- IMPRESSION: Small volume abdominal ascites.
Abd CT 01/19/24- IMPRESSION:
1. Severe pancolitis most compatible with C. difficile colitis.
2. Geographic region of hypoattenuation in the left kidney suggestive of a renal infarct. Pyelonephritis is an alternative consideration.
3. Bilateral nephrolithiasis.
4. Urinary bladder calculi.
5. 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
6. Mild abdominal ascites.
7. Small bilateral pleural effusions.
8. Small pericardial effusion.
-----
Critical Care time 75 mins -- The patient is admitted for acute critical illness for the treatment of vital organ failure and/or prevention of further life-threatening conditions. Total care includes time spent in review of history, physical exam,
medications, hemodynamic/ventilator parameters, laboratory data, imaging and discussion with house staff, pharmacy, respiratory therapy, planning feeder, and nursing.
Discussed in detail with hospitalist and nephrology team regarding plan of care. Reviewed extensive outpatient records including bronch report/micro results/PFTs.
[2024-01-22] MEDS: ADVAIR HFA 230/21 MCG INHALER 2 PUFF INH ×2 (07:42→20:23)
[2024-01-22] MEDS: FIRVANQ 500 MG PO ×4 (07:45→23:05)
[2024-01-22] MEDS: SOLU-CORTEF 50 MG IV ×2 (07:45→19:39)
[2024-01-22] MEDS: THERAGRAN 1 TABLET PO (07:47)
[2024-01-22] MEDS: OCUVITE SOFTGEL 1 CAP PO ×2 (07:47→19:40)
[2024-01-22] MEDS: PROTONIX 40 MG PO (07:47)
[2024-01-22] MEDS: FOLVITE 1 MG PO (07:47)
[2024-01-22] MEDS: LIPITOR 20 MG PO (07:47)
--- NOTE | 2024-01-22 08:46 | SUR.OPER ---
0700 patient in bed. AAO x3 Forgetful; Levophed at 2mcg via RT chest port. ST 108 BP via RT upper arm 87/56 MAP 66; RR 25 96%2L. ST 108 trace edema pedal pulses palatable Abdomen distended, tender, hypoactive BS; Redmond care done per hospital's
policies. Redmond draining clear akira urine. on clear liquid diet. No diarrhea. on Enhanced precaution/
--- NOTE | 2024-01-22 09:10 | W.PN.ID1 ---
Addendum entered and electronically signed by Aliya Spence MD 01/22/24 16:22:
Reviewed chart and spoke with RN this afternoon
Remains on levophed at 2 mcg/min - some intermittent tachycardia; no fevers
awaiting ID of the 2nd GNR
Getting HD
note oncology comments that neutropenia may be prolonged
If worsening overnight please add micafungin 100 mg IV q24 hours and vancomycin (pharmacy to dose), repeat blood cultures x2, AXR - at the moment patient is significantly improved compared to yesterday
Addendum entered and electronically signed by Aliya Spence MD 01/22/24 09:54:
switched to cefepime 1 gm q12h
Original Note:
Date of Service
Date of Service: January 22, 2024
Today's Communication
interval improvement overnight
continue ceftrixone/metronidazole/oral vanc
Assessment / Plan
Severe C difficile Infection
Shock - hypovolemic, also possibly septic
Neutropenia - expected with his chemotherapy
UTI
Pancytopenia
Progressive SUZI
Hyperkalemia/Hyponatremia - management per nephrology
- pressor requirement trending up over the evening, peaked and now minimal
- ANC remains <500
- two sets of blood cultures are in progress - remain no growth to date
- if there is a fever over 101 then would repeat blood cultures x2
- follow up urine culture - second GNR
- sputum culture - contaminated, no need to resend in my opinion
- giardia/crypto and stool cultures were ordered
- continue ceftriaxone given clinical improvement overnight
- continue oral vancomycin 500mg PO q6 hours and IV metronidazole at this time
- hold probiotics while neutropenic - can restart when anc >1500
- note stress dose steroids, appreciate oncology input
- follow clinically
Chief Complaint
-: Clinical Sepsis and Other (C difficile, Neutropenia)
Subjective / Review of Systems
remains afebrile
restart on pressors thorough yesterday and with increasing dosing into the evening and now markedly improved to 2 mcg/min - I was not notified
neutropenia ongoing
marked drop of plt
ANC now 0
cr further increased to 2.6
urine culture 2 GNR
AXR possible ileus
note 's comment to social work lecturer - may be time to keep him comfortable
Vital Signs / Physical Exam
Vital Signs
Vital Signs
Temp Pulse Resp BP Pulse Ox
98.6 F 111 23 101/60 91
01/22/24 07:52 01/22/24 08:45 01/22/24 08:45 01/22/24 08:45 01/22/24 08:45
Physical Exam
Constitutional: No Acute Distress and Chronically Ill
Cardiovascular: Regular Rate and S1/S2; Negative Murmur or Rub
Pulmonary: Clear and Symmetric; Negative Wheezes or Rales
Gastrointestinal: Soft, Tender (reporting mild tenderness), Distended and Normal Bowel Sounds
Skin: Warm and Dry; Negative Rash or Jaundice
Objective Data
Lab Data
Lab Results
01/22/24 03:59
01/22/24 03:59
PT 15.8 Sec (11.4-14.6) H 01/18/24 21:08
INR 1.28 01/18/24 21:08
APTT 29.3 Sec (23.4-35.0) 01/18/24 21:08
Estimated Creat Clear 23 ml/min 01/22/24 03:59
Lactic Acid 1.3 mmol/L (0.7-2.0) 01/22/24 03:59
Total Bilirubin 0.5 mg/dl (0.2-1.3) 01/22/24 03:59
AST 119 U/L (17-59) H 01/22/24 03:59
ALT 60 U/L (0-50) H 01/22/24 03:59
Alkaline Phosphatase 114 U/L (38-126) 01/22/24 03:59
Most recent labs reviewed.
Micro Results:
01/20/24 12:06 Urine Culture - Preliminary
Urine Klebsiella oxytoca
Gram negative bacilli
01/18/24 21:08 Blood Culture - Preliminary
Blood/Venous No Growth in 72 hours- Final report to follow
01/19/24 12:56 Blood Culture - Preliminary
Blood/Venous No Growth in 48 hours- Final report to follow
01/19/24 17:22 Respiratory Culture - Final
Sputum Gram Stain - Final
01/18/24 16:55 C. difficile GDH Antigen & Toxins - Final
Feces/Stool Toxigenic C.difficile Positive
Care Review
Plan reviewed with: Physician (Dr Hopper - dependency case manager note)
--- NOTE | 2024-01-22 09:19 | W.PN.NEPH.PH ---
Today's Communication / Plan
-
dialysis
Assessment/Plan
-
Impression:
Presents with sepsis physiology (Ceftriaxone for Pyelonephritis, Vanco and Flagyl for C. Diff
Hyponatremia
Hyperkalemia
Non gapped Metabolic acidosis
Pancolitis with associated C. difficile
Metastatic lung cancer
Possible left renal infarct and/or pyelonephritis
Neutropenia
Large malignant left adrenal gland mass
SUZI
Plan:
follow BMP
IVF with bicarb
expect further SUZI with hypotension and contrast 01/18
abx for Cdiff
maintain MAP > 65
long discussion with patient regarding dialysis. I think SUZI will worsen. given then Plt are dropping, it would be practical to get CVC now.
I also do not think waiting for dialysis and further rise in Cr will offer any benefit as acid/base balance and K are already shifting
critical care time 31 minutes
-
-
Date of Service: January 22, 2024
CC / HPI / ROS
-
Chief Complaint:
SUZI
History of Present Illness:
neutropenic/pancytopenic
BP low, now on levophed
critically ill in ICU
Acidosis persists 17
SUZI/Cr up to 2.6
Review of Systems:
no CP
baseline SOB
diarrhea slowing
oliguric
Labs
-
Labs:
WBC 0.1 10^3/uL (4.8-10.8) L* 01/22/24 03:59
RBC 2.80 10^6/uL (4.70-6.10) L 01/22/24 03:59
Hgb 7.8 g/dL (13.0-18.0) L 01/22/24 03:59
Hct 22.2 % (39.0-52.0) L 01/22/24 03:59
Plt Count 22 10^3/uL (130-400) L* D 01/22/24 03:59
Sodium 126 mmol/L (135-145) L 01/22/24 03:59
Potassium 5.5 mmol/L (3.5-5.1) H 01/22/24 03:59
Chloride 100 mmol/L (98-107) 01/22/24 03:59
Carbon Dioxide 17 mmol/L (22-30) L 01/22/24 03:59
BUN 94 mg/dl (9-20) H 01/22/24 03:59
Creatinine 2.6 mg/dL (0.7-1.3) H 01/22/24 03:59
eGFR 24.78 01/22/24 03:59
Glucose 117 mg/dl (70-99) H 01/22/24 03:59
Calcium 7.7 mg/dl (8.4-10.2) L 01/22/24 03:59
Phosphorus 7.2 mg/dl (2.5-4.5) H 01/21/24 21:42
Uek-H-Cutjeoyzyfa Pept 517 pg/ml 01/18/24 21:08
Albumin 2.1 g/dl (3.5-5.0) L 01/22/24 03:59
Physical Exam
-
Vital Signs:
Vital Signs
Temp Pulse Resp BP Pulse Ox
98.6 F 111 23 101/60 91
01/22/24 07:52 01/22/24 08:45 01/22/24 08:45 01/22/24 08:45 01/22/24 08:45
Cardiovascular:: Regular rate and rhythm
Respiratory:: Bilateral: Coarse
Lung Excursion:: Normal
Abdomen:: Nontender and Soft
Bowel Sounds:: Decreased
Extremity Edema:: None: Bilateral:
--- NOTE | 2024-01-22 09:52 | SUR.OPER ---
Type +Cross send results pending
--- NOTE | 2024-01-22 10:00 | W.PN.HOSP.TC ---
Addendum entered and electronically signed by César Parkinson MD 01/22/24 17:54:
I saw and evaluated the patient. I reviewed the resident�s note and agree with findings and plan as documented in the resident�s note.
1. Shock - hypovolemic/Septic
-Patient got IV fluid over the last few days, 5 L plus in the last 3 days.
-Systolic blood pressure remains soft in 80s
-Question of possible adrenal insufficiency and on IV hydrocortisone 50mg q12h
-Patient is to be transferred to ICU due to increased vasopressor need.
-Patient developed new sinus tach/SVT and required vasopressors to be changed to ayse in evening today.
2. C diff colitis
-On oral vancomycin, ongoing diarrhea continue
-Abdominal x-ray ruled out any concern of megacolon
-ID/GI following help appreciated
3. UTI/pyelonephritis
-Urine culture growing Klebsiella oxytoca/gram-negative
-Maintained on IV cefepime.
4. SUZI
Urinary retention
Metabolic acidosis
-Having urine Redmond catheter at this time, continue monitoring output
-Maintain on IV fluid for last few days, unfortunately third spacing
-Continue to have worsening renal function.
-Nephrology decided for patient to be started on intermittent hemodialysis
5. Pancytopenia
-S/p G-CSF injection in ER for neutropenia
-Unfortunately patient developed new thrombocytopenia as well
-Getting heparin, hold further dosing until platelet count stabilized
-Thrombocytopenia possibly multifactorial at this point with ongoing C. difficile/chemotherapy/immunotherapy exposure versus HIT
-Oncology following and help appreciated
-Patient required 1 unit of platelet transfusion for catheter placement
6. Hyperkalemia
-Low potassium diet when able to take solid
-Suspected driven by renal failure
-off of valsartan
7. Black stool
Multifactorial anemia -possible blood loss/bone marrow suppression related
-discussed with GI, considering holding PPI with active cdiff
8. Sinus tachycardia versus SVT
-Patient was started on dialysis and heart rate in 150s
-Asymptomatic. Vasopressor requirement stable
-Cardiology consulted for further help
-Medical emergent cardioversion if develops shock
Patient spouse updated over the phone, 01/20 01/21.
I have discussed with spouse that patient condition has been deteriorating despite maximal medical treatment. Patient already having cardiac arrhythmia on on vasopressors, prognosis is poor at this point with patient possibly undergo cardiac
arrest. I have discussed with patient regarding code discussion and patient have opted to remain full code for now. we will continue goal of care discussion Patient spouse understand situation.
Patient need to go to total critical care time 38 mins . Total critical care time documented does not include time spent on separately billed procedures or the services of residents, students, nurses or physician assistants. I personally saw and
examined the patient. I have reviewed all diagnostic interpretations and treatment plans as written. I was present for the peterson portions of any procedures performed and the inclusive time noted in any critical care statement. Critical care time
includes patient management by me, time spent at the patients bedside, time to review lab and imaging results, discussing patient care, documentation in the medical record, and time spent with the family or caregiver.
Original Note:
Today's Communication/Plan
-
Patient is decompensating, cardiology was consulted, SUPERVISORY AIDE was initiated
Assessment / Plan
Assessment / Plan
#Hypovolemic shock/dehydration
-Pt upgraded to ICU level care due to his pressor regiment
-Patient has been receiving saline boluses as needed for hypotension. S/p more than 6 L normal saline boluses
-continuous IV fluids 100 mL/h
-Patient was started on norepinephrine drip at 3 mcg/min, per protocol, with as needed to keep systolic blood pressures greater than 100
-Monitor electrolytes daily CBC and CMP
-Patient was all started on hydrocortisone 50 mg IV every 12 hours, as there is potential concern for adrenal insufficiency as patient was on steroids for 3 days as part of his chemo regimen, patient also has a left adrenal metastases
-Diet was changed to clear liquids
#Prerenal SUZI
-Creatinine on admission was 1.7 BUN was 73. Patient's baseline creatinine is 0.8, baseline BUN is 12
-Creatinine 2.6 today, worsening
-Continue IV fluids
-CRRT was initiated on patient as he is not a dialysis candidate due to his low blood pressures
#C. difficiles
-Stool sample was collected and tested for C. difficile antigens
-Sample was positive for C. difficile antigens
-There is concern for potential fulminant C. difficile
-Patient started on oral vancomycin 500 mg every 6 hours, and 500 mg metronidazole IV per day total, currently day 4
-CT scan abdomen pelvis with oral contrast was negative for toxic megacolon.
-Abdominal ultrasound was ordered to evaluate for ascites
-Small volume ascites noted on ultrasound
#Lymphopenia
-Patient's white blood cell count decreased from 11.1-0.1,
-ANC is 0.0 patient is neutropenic by definition.
-Neutropenic precautions initiated
-Received granulocyte stimulating factor in ED, effect not expected for few days at least
-Oncology following
#Urinary retention/oliguria
-Redmond catheter will be initiated
-Strict I's and O's recorded
-Urine studies have been ordered
-FENa was calculated at 0.5 indicative of prerenal etiology
-Strict weights to be recorded on patient
#Metabolic acidosis with respiratory compensation
-ABG was ordered which demonstrated a metabolic acidosis with respiratory concentration
-Patient was started on continuous sodium bicarbonate at 100 mL/h IV
#thrombocytopenia
-platelets decreased to 22
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
- status post 1 unit of platelets transfused
#Anemia
-Patient previously admitted for GI bleed, secondary to metastatic duodenal lesion, and gastric ulcers
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
-Hemoglobin is downtrending at 7.8 was 10.7 on admission
-Will continue pantoprazole 40 daily p.o.
#Hyperkalemia
-Potassium was 5.6 on admission
-Potassium 5.5 today
-Patient was started on calcium gluconate, insulin plus dextrose, as needed for hyperkalemia
-Likely secondary to SUZI, metabolic acidosis and reduced filtration
-Continue IV fluids
-Daily BMPs
-Patient was counseled to please take his albuterol breathing treatments as they are for lowering his potassium. Patient was understanding and agreed
-Lokelma was discontinued in the setting of pancolitis and C. difficile infection
#COPD
-Patient does not endorse shortness of breath or difficulty breathing at this time
-Patient takes 1 puff fluticasone PropionSalmeterol BIDPRN for shortness of breath, and guaifenesin
-Continue current meds
#Foot drop
-Patient endorses spontaneous foot drop developing on the right foot only 3 weeks ago
-Etiology unknown
#Hyperlipidemia
-Continue home atorvastatin p.o. 20 mg
#Hypertension
-Continue valsartan 320 mg p.o.
Cholesterol-lowering diet
Full code
Data:
01/21/2024 renal artery duplex:
IMPRESSION: Right renal artery velocities mild to moderately elevated diffusely throughout. However the renal to aortic velocity ratio is consistent with less than 60% stenosis. Elevated resistive indices in the right kidney may be consistent with
intraparenchymal disease. Left renal artery and left kidney not well visualized and cannot be well assessed on this ultrasound secondary to large mass seen in the vicinity (recent CT scan demonstrates adrenal mass).
01/21/2024 abdominal ultrasound:
IMPRESSION:
Small volume abdominal ascites.
Anticipated Discharge: > 48 hours
Subjective/Interval History
-
Date of Service: January 22, 2024
Objective Data
-
Labs:
Laboratory Results
01/21/24 01/22/24
21:42 03:59
WBC 0.1 L*
Hgb 7.8 L
Hct 22.2 L
Plt Count 22 L* D
Sodium 126 L 126 L
Potassium 5.5 H 5.5 H
Chloride 100 100
Carbon Dioxide 15 L 17 L
BUN 94 H 94 H
Creatinine 2.3 H 2.6 H
Glucose 132 H 117 H
Calcium 7.4 L 7.7 L
Total Bilirubin 0.5
AST 119 H
ALT 60 H
Alkaline Phosphatase 114
Vital Signs:
Vital Signs
Temp Pulse Resp BP Pulse Ox
98.6 F 111 23 101/60 91
01/22/24 07:52 01/22/24 08:45 01/22/24 08:45 01/22/24 08:45 01/22/24 08:45
I&O
01/21/24 01/22/24 01/23/24
06:59 06:59 06:59
Intake Total 2014 219.1 / 2196.6 262.5 / 262.5
Output Total 450 / 450 200 / 200
Balance 1565 / 1565 / 1996.6 262.5 / 262.5
[2024-01-22] MEDS: STERILE WATER FOR INJECTION 10 ML IV ×2 (11:14→18:36)
[2024-01-22] MEDS: MAXIPIME 1000 MG IV ×2 (11:14→18:35)
--- NOTE | 2024-01-22 11:31 | W.PN.GI.CBS2 ---
Today's Communication / Plan
-
GI signing off. cdiff per ID
Assessment / Plan
-
The pt is a 78 yo male with a PMH significant for chronic cough, COPD, hypertension, GERD, restless leg syndrome, metastatic adenocarcinoma of the lung status post bronchoscopy 11/05/2023 as well as recent left adrenal mass biopsy on 12/06/2023,
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 We are being asked to
evaluate for concern for toxic megacolon with +Cdiff and worsening sepsis. The patient had recent diagnosis of metastatic adenocarcinoma of the lungs, recently started on chemotherapy this past week, now neutropenic with CT imaging showing
pancolitis consistent with C. difficile upon stool studies. He has been hypotensive and acidotic, consistent for septic shock although not requiring pressors at this time. Infectious disease and oncology are following. He was started on oral
vancomycin at 500 mg every 6 hours along with IV metronidazole and IV ceftriaxone. Urine findings consistent with gram-negative bacteria in urine culture pending sensitivities. He continues with loose stools, without abdominal pain. His ANC is
400. Has also been persistently hyponatremic although stable. His renal function has been progressively worsening as well and nephrology is following. Has had some drop in his hemoglobin and platelets although with no active signs of bleeding.
He had prior EGD in December showing gastric and duodenal ulcers, with duodenal lesion consistent with his already known metastatic disease.
Problem list:
-C. difficile positive
-CT consistent with severe pancolitis, renal infarct
-Septic shock
-UTI
-Metastatic lung cancer on chemotherapy
-Hyponatremia
-Left adrenal mass
-Microcytic anemia, acute on chronic
-Pancytopenia
Other pertinent medical history:
-hypertension
-Gerd
-COPD
-Chronic cough
Recommendations:
---CT findings consistent with pancolitis, with C. difficile positive toxin on stool studies. Started on IV Flagyl and oral vancomycin. IV ceftriaxone was added due to presence of gram-negative UTI. Currently does not have overall symptoms of
toxic megacolon, but given the clinical picture and the fact he was taking Imodium at home cannot rule this out. He has no pain but continues with loose stools, 2 this morning.
-At this time we will check an x-ray of the abdomen to evaluate for colonic distention/signs of toxic megacolon. If concern would suggest surgery evaluation.
# C. difficile colitis in the setting of severe neutropenia on a patient on chemotherapy for metastatic adenocarcinoma of the lung
-Antibiotics per ID
-Supportive care including transfusions as needed
-No role for probiotics especially in the setting of his neutropenia
-Avoid PPI if possible, at least decrease to once daily
-Not much to add. Reviewed imaging including abdominal x-ray from yesterday, 01/21/2024 showing thumbprinting in the transverse colon and air-fluid loops of the small bowel. No pneumoperitoneum.
-- Based on his significant neutropenia and comorbidities patient is extremely high risk and would not unlikely survive any type of surgery
-Monitor for toxic megacolon with abdominal exams and if clinical picture deteriorates imaging
-Would not do any vancomycin enemas based on his significant neutropenia
-Please call us back if we can help. Discussed with Dr. Parkinson
Subjective
Subjective
Date of Service: January 22, 2024
Mild abdominal pain. Smear of black stool today with no significant diarrhea
Objective
Data Reviewed
Laboratory Data:
Laboratory Results
01/22/24 03:59
01/22/24 03:59
Laboratory Results
PT 15.8 Sec (11.4-14.6) H 01/18/24 21:08
INR 1.28 01/18/24 21:08
APTT 29.3 Sec (23.4-35.0) 01/18/24 21:08
Phosphorus 7.2 mg/dl (2.5-4.5) H 01/21/24 21:42
Magnesium 2.6 mg/dl (1.6-2.3) H 01/21/24 21:42
Total Bilirubin 0.5 mg/dl (0.2-1.3) 01/22/24 03:59
AST 119 U/L (17-59) H 01/22/24 03:59
ALT 60 U/L (0-50) H 01/22/24 03:59
Alkaline Phosphatase 114 U/L (38-126) 01/22/24 03:59
Vital Signs and I&O:
Vital Signs
Temp Pulse Resp BP Pulse Ox
97.9 F 108 25 92/61 91
01/22/24 11:16 01/22/24 11:16 01/22/24 11:16 01/22/24 11:16 01/22/24 08:45
I&O
01/21/24 01/22/24 01/23/24
06:59 06:59 06:59
Intake Total 2014.1 / 2196.6 652.5 / 652.5
Output Total 450 / 450 200 / 200 50 / 50
Balance 1565 / 1565 1996.6 602.5 / 602.5
--- NOTE | 2024-01-22 11:58 | W.PN.ONC ---
Today's Communication / Plan
-
Would transfuse platelets given her rapid fall, as well as his colitis. I suspect he will need red cells tomorrow as well. Antibiotics as per infectious disease service. The neutropenia may be quite prolonged, as he had received radiation therapy
just prior to his chemotherapy.
Impression
Impression
Severe pancytopenia due to chemotherapy
c-diff colitis/diarrhea
septic shock
SUZI
stage IV NSCLC - s/p 1 cycle carbo/alimta/keytruda - 7/3 w/ long-acting GCSF - 7/5 - [facility] ER; status post radiation therapy to the upper abdomen late December
Plan
Plan
1. C-diff colitis - diarrhea
-flagyl/ vanc as per ID
-IVF/ supportive care
2. Neutropenia
-s/p chemotherapy - though occurring rather quickly following administration
-received GCSF (Fulphilia- LA agent) - 7/5 - in ER
-follow CBC
3. NSCLC - s/p 1 cycle carbo/alimta/ keytruda
-cont folic acid
-follow CBC
-f/u w/ Dr. Portillo as outpt for continued management
Will continue to follow with you
Subjective/Objective
Subjective/Objective
Vital Signs:
Vital Signs
Temp Pulse Resp BP Pulse Ox
98.0 F 101 27 98/60 91
01/22/24 11:46 01/22/24 11:46 01/22/24 11:46 01/22/24 11:46 01/22/24 08:45
Lab Results:
Laboratory Data
WBC 0.1 10^3/uL (4.8-10.8) L* 01/22/24 03:59
Hgb 7.8 g/dL (13.0-18.0) L 01/22/24 03:59
Plt Count 22 10^3/uL (130-400) L* D 01/22/24 03:59
PT 15.8 Sec (11.4-14.6) H 01/18/24 21:08
INR 1.28 01/18/24 21:08
APTT 29.3 Sec (23.4-35.0) 01/18/24 21:08
eGFR 24.78 01/22/24 03:59
--- NOTE | 2024-01-22 12:13 | PTCARENOTE ---
1 unit of Plat adm
[2024-01-22] MEDS: SODIUM BICARBONATE 1150 MEQ IV (12:38)
[2024-01-22 13:07] LABS: Hepatitis B Surface Antigen Negative (Negative)
[2024-01-22 13:25] LABS: Hepatitis B Core Ab, Total Negative (Negative); Hepatitis B Surface Antibody Negative; Hepatitis C Antibody Negative (Negative)
[2024-01-22] MEDS: VENTOLIN NEBULES INH (13:32)
--- NOTE | 2024-01-22 14:55 | PTCARENOTE ---
patient in bed. AAO x3 Forgetful. ST 100 VSS. RR shallow. on 2L of oxygen via nasal canula. Returned from IR post HD port RT neck insertion . Dialysis 1st tx in progress
[2024-01-22] MEDS: MANNITOL 25% 12.5 GRAMS IV ×2 (15:54→16:56)
[2024-01-22] MEDS: LEVOPHED 250 IV (16:22)
--- NOTE | 2024-01-22 16:25 | W.PN.NEPH.HD ---
Assessment
-
Seen on HD. no complaints. VSS on levophed, sinus tach., access temp CVC ok
Progress Note - Hemodialysis
-
Date of Service: January 22, 2024
Duration: 30 minutes and 2 hours
Potassium Bath: 2
Calcium Bath: 2.5
Opti-Dialyzer: 160
Ultrafiltration: Other (none)
Blood Flow: 250
Dialysate Flow: 600
Heparin: no
EPO: no
--- NOTE | 2024-01-22 16:34 | PTCARENOTE ---
ST 123-[address]; On levophed 2mcg for Goal MAp >65; infusing via RT chest port. BP via RT upper arm 88/59, MAP 65 Denies chest pain. Denies SOB. Dr hickman notified
[2024-01-22] MEDS: NEO-SYNEPHRINE 250 IV (16:53)
--- NOTE | 2024-01-22 16:58 | CM ---
TT message from Juanita, mechanical unit repairer: received a call from October who is patient's health development coach from [place] [phone] and she said that she's been following the patient since 11/2023 and wanted to be updated on patient's condition and she can be reached
at [phone].
--- NOTE | 2024-01-22 17:00 | PTCARENOTE ---
ST 153;
Levophed d/c . Phenylephrine initiated per protocol for MAP >65; infusing via RT chest port. per Dr Johnson continue with Sodium Bicarb with dialysis but rate change from 100 to 70/hr . infusing via left upper arm
--- NOTE | 2024-01-22 17:05 | CON.CAR ---
Consultation
Consultation Request
Date/Time Consultation Requested: January 22 2024
Date/Time Consultation Performed: January 22 2024
Requesting Provider: Dr Parkinson
Performing Provider: Dr Frost
Reason for Consultation: Tachycardia, hypotension
Medical History
-
Chief Complaint: diarrhea, fatigue
History of Present Illness:
.
Alex has hx of recent history of metastatic lung cancer with admission December 23 to the 2023 for GI bleeding with gastric ulcers following radiation treatment for duodenal metastasis, COPD hypertension who was admitted a few days ago presenting
with diffuse watery diarrhea fatigue. He just started chemotherapy 2 days prior. He was found to have c diff diarrhea and to be pancytopenic, hyponatremic, hyperkalemic and in renal failure. He was found to be septic shock. he was started on
pressors including IV Levophed. With worsening renal failure, he was started on HD today. he became hypotensive with HD with HRs into the 150s and appeared to have SVT. Primary service changed his pressor from IV Levophed to IV Ravinder and his HRs have
improved to 120s. He remains hypotensive. He remains a full code. Cardiology was asked to eval HR. GI following for findings consistent with pancolitis.
He denies a cardiac hx. he denies chest pain or dyspnea.
Echo January 22 2024: Technically difficult Left ventricle is small in size. Mild LVH EF is 55-60%. No significant valvular disease. Trivial pericardial effusion. No prior study available for comparison.
Past medical history:
Metastatic lung cancer with duodenal metastasis
Hypertension
Recent admission for GI bleeding following radiation treatment
COPD
Restless leg syndrome
Former smoker
Left adrenal metastasis
Family history of premature CAD in his father.
Social History
Tobacco: Former Smoker (Quit 8 years ago 12-azxf-jcka history)
Alcohol: None
Drug: None
Personal:
Living: With Family
Family History
Family History: Early CAD (Father of NM age 56 )
Allergies / Home Medications
Allergy/AdvReac Type Severity Reaction Status Date / Time
No Known Allergies Allergy Verified 01/18/24 10:42
�Medication �Instructions �Recorded �Confirmed �Type
atorvastatin 20 mg tablet 20 mg PO DAILY High Cholesterol 11/02/23 01/18/24 History
ropinirole 0.5 mg tablet 0.5 mg PO HS Restless Leg Syndrome 11/02/23 01/18/24 History
valsartan 320 mg tablet 320 mg PO DAILY Blood Pressure 11/02/23 01/18/24 History
fluticasone 500 mcg-salmeterol 50 1 inh inhalation R BIDPRN PRN sob 12/14/23 01/18/24 History
mcg/dose blistr powdr for
inhalation (Wixela Inhub)
folic acid 1 mg tablet 1 mg PO DAILY Supplement 12/14/23 01/18/24 History
vit C 250 mg-vit E 90 mg-zinc 40 1 cap PO BID Supplement 12/14/23 01/18/24 History
mg-copper 1 eo-beukpr-rmyera
capsule (PreserVision AREDS-2)
therapeutic multivitamin 1 tab PO DAILY Supplement 12/24/23 01/18/24 History
pantoprazole 40 mg tablet,delayed 40 mg PO BID #60 tabs 12/27/23 01/18/24 Rx
release
acetaminophen 500 mg tablet 1,000 mg PO BIDPRN PRN mild pain 01/18/24 01/18/24 History
(Tylenol Extra Strength)
dexamethasone 4 mg tablet 4 mg PO DIRECTED inflammation 01/18/24 01/18/24 History
guaifenesin 100 mg/5 mL oral liquid 200 mg PO Q4H PRN cough 01/18/24 01/18/24 History
lidocaine-prilocaine 2.5 %-2.5 % 1 applic topical DIRECTED Skin 01/18/24 01/18/24 History
topical cream Issues
loperamide 2 mg capsule 2 mg PO DIRECTED PRN diarrhea 01/18/24 01/18/24 History
Review of Systems
-
History Source: Patient
All other systems: Negative unless noted
Constitutional: Fatigue
Abdomen/GI: Diarrhea
Physical Exam
Vital Signs
Temp Pulse Resp BP Pulse Ox
98.2 F 91 24 108/56 94
01/22/24 15:32 01/22/24 14:30 01/22/24 14:30 01/22/24 14:30 01/22/24 14:23
Physical examination:
General: No acute distress, awake and alert, confused at times
Neck: Negative JVD
Heart: Tachycardic, Negative S3 positive S1/S2, Negative S4, No murmur
Lungs: CTA b/l, negative wheezes/rales/rhonchi
Abd: Positive BS, NT/ND, neg rebound/rigidity/guarding
Ext: Negative cyanosis/clubbing/edema
Neuro: nonfocal
Lab Results
01/22/24 03:59
01/22/24 03:59
Yag-N-Txzkrxzexis Pept 517 pg/ml 01/18/24 21:08
Impression / Plan
-
.
Impression:
Metastatic lung cancer with duodenal metastasis, s/p recent chemo in the last week / s/p radiation therapy with subsequent GI bleeding admit
Septic shock with hypotension requiring pressors
SVT with sinus tachycardia and PACs
C. difficile colitis with pancolitis
Pyelonephritis/UTI
Acute renal failure with hyperkalemia, now on urgent dialysis
Pancytopenia
Black stool
Confusion secondary to above
COPD, longtime smoker
Fam hx of premature CAD in his father
Currently full code
Echo January 22 2024: Technically difficult Left ventricle is small in size. Mild LVH EF is 55-60%. No significant valvular disease. Trivial pericardial effusion. No prior study available for comparison.
Plan:
Reviewed telemetry shows elevated heart rates likely SVT. Currently in sinus tachycardia with PACs heart rates 120s.
Agree with transition from IV Levophed which may be contributing to SVT/tachycardia to IV Ravinder-Synephrine
Recent echo reviewed showing preserved LV function.
Monitor blood pressures while on dialysis with adjustment in IV pressor therapy as needed for blood pressure support.
Treatment of pancytopenia as per primary service and oncology.
Continue broad spectrum antibiotics for sepsis, C. difficile colitis
Discussed with nursing and primary service.
CCT: 36 min
Data Reviewed
-
EKG: Tracing Personally Visualized and interpreted
Labs: Labs Reviewed by me
Old Records: Reviewed
[2024-01-22] MEDS: FLUSH (NSS) 1 FLUSH INTRACATH (17:22)
--- NOTE | 2024-01-22 17:48 | PTCARENOTE ---
Dialysis completed; ST 150's BP 95/59 MAP 68; Afebrile.
AAO x3 Forgetful; Abdomen tender across ; No loose stools through shift, few small smears. Indwelling sanches draining tea color urine, continues with decrease urinal output. SOB noted POX 90% 4L HOB elevated
--- NOTE | 2024-01-22 20:18 | PTCARENOTE ---
Cannot verify vitals prior to 1900, previous shift.
--- NOTE | 2024-01-22 20:21 | PTCARENOTE ---
Received patient AAOx3, forgetful, follows commands, slow speech, word searching. Complains of 4/10 abdominal pain, tylenol given. Sinus tach 120s, neosynephrine being titrated to meet MAP>65. Normothermic, trace bilateral lower extremity edema. On
4 liters nasal cannula, lung sounds diminished throughout. Occasional nonproductive cough. Shallow respirations and tachypneic at rest. Abdomen firm, distended, tender, and hypoactive bowel sounds. Incontinent of stool. [place] in place draining
akira/tea colored urine. Right subcutaneous port patent, WNL, right dialysis cath patent, PIVs WNL. Sodium bicarb gtt and ayse gtt ongoing per order. Call díaz within reach.
--- NOTE | 2024-01-22 22:13 | PTCARENOTE ---
Patient continuously saturating 84-85%, RT to bedside and patient put on midflow nasal cannula at 15 liters, DENTAL SERVICES DIRECTOR aware. Order for RT to deep suction patient, weak cough.
[2024-01-22] MEDS: REQUIP 0.5 MG PO (23:05)
[2024-01-23] VITALS (46 sets, daily range): BP systolic 71–126; BP diastolic 42–85; BMI 25.6
--- NOTE | 2024-01-23 00:31 | PTCARENOTE ---
Patient tachypneic to high 40s, saturating 92-93% on 15 liters midflow. Switched to high flow nasal cannula, 55 liters, 100%. Now saturating 97-98%, respirations in the 20s. CHG bath done, sheets and gown changed, sanches care and mouth care done.
Repositioned, warm blankets provided. Call díaz within reach.
[2024-01-23] MEDS: MELATONIN 10 MG PO (01:42)
[2024-01-23] MEDS: SODIUM BICARBONATE 1150 MEQ IV (04:22)
[2024-01-23] MEDS: ZOFRAN 4 MG IV (04:22)
--- NOTE | 2024-01-23 04:31 | PTCARENOTE ---
Patient confused and restless, continuously taking off HFNC, desaturating to the 70s. Mitts applied. Patient reports feeling nauseous, emesis bag and zofran given.
[2024-01-23 04:38] LABS: % Lymphocytes 87.5 % (20.5-51.1); % Neutrophils 12.5 % (42.2-75.2); Absolute Lymphocytes 0.1 10^3/uL (1.2-3.4); Hemoglobin 7.2 g/dL (13.0-18.0); Mean Corp Hgb Conc. 35.5 g/dL (33.0-37.0); Mean Corpuscular Hgb 27.2 pg (27.0-31.0); Mean Corpuscular Volume 76.6 fL (80.0-94.0); Nucleated Red Blood Cells % 0 % (-); Red Blood Cell Count 2.65 10^6/uL (4.70-6.10); Red Cell Dist. Width 16.5 % (11.5-14.5)
[2024-01-23 05:00] LABS: Hematocrit 20.3 % (39.0-52.0); INR 1.68; PT 19.7 Sec (11.4-14.6); Platelet Count 7 10^3/uL (130-400); White Blood Cell Count 0.1 10^3/uL (4.8-10.8)
--- NOTE | 2024-01-23 05:19 | PTCARENOTE ---
Platelets 7, HARVEST SUPERVISOR notified and ordered platelets for infusion. Blood bank called this RN saying platelets will not be ready for a few hours as it is coming from [facility].
[2024-01-23] MEDS: FLAGYL 500 MG 100 IV (05:32)
[2024-01-23] MEDS: FIRVANQ PO ×2 (05:32→10:59)
[2024-01-23 05:42] LABS: ALT (SGPT) 147 U/L (0-50); AST (SGOT) 321 U/L (17-59); Alkaline Phosphatase 151 U/L (38-126); Blood Urea Nitrogen 69 mg/dl (9-20); Calcium 7.3 mg/dl (8.4-10.2); Carbon Dioxide 22 mmol/L (22-30); Chloride 97 mmol/L (98-107); Glucose 87 mg/dl (70-99); Sodium 128 mmol/L (135-145); Total Bilirubin 0.7 mg/dl (0.2-1.3); Total Protein 4.1 g/dl (6.3-8.2)
[2024-01-23 05:52] LABS: Estimated Creatinine Clearance 28 ml/min; eGFR 32.02
--- NOTE | 2024-01-23 06:21 | PTCARENOTE ---
Patient took off mitt and HFNC, desaturated to 49%. Put back on HFNC, came back up to 94% in less than a minute. Mitts reapplied and importance of HFNC reinforced, patient verbalized understanding.
--- NOTE | 2024-01-23 07:14 | W.PN.INTV ---
Today's Communication / Plan
Recommendations
Worsening clinical condition overnight, now on HFNC
Patient now wishes to be DNR, but not yet agreeing to comfort measures
We will add PRN morphine for SOB/pain, he was agreeable to this
Await further decision making, family aware of poor prognosis
Continue supportive care
Assessment
-
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
and diffuse watery diarrhea. Received 2 L of normal saline in the ER, admitted 01/18/2024 for hypovolemia, dehydration, SUZI. Throughout admission, patient was noted to have CT imaging with severe pancolitis; he is C. difficile+. Patient continued to
have hypotension, systolic noted to be in the 80s despite greater than 5 L normal saline administration over the past 72 hours. Was started on a low dose pressor and transferred to ICU.
Septic shock
Acute severe C-diff pancolitis
Pancytopenia, severe/worsening
Metabolic acidosis
Hyponatremia
Hyperkalemia
Hypocalcemia
SUZI, creatinine peak 2.6, rising
SVT
R sided infiltrate vs effusion
Conditions present prior to admission
Stage IV NSCLC - s/p 1 cycle carbo/alimta/keytruda
Neutropenia s/p GCSF 01/15
Lung mass s/p bronchoscopy 11/05/23
Admission 12/23-12/28/23 for GIB related to radiation colitis
COPD w/ moderate obstruction (10/12/23 FEV1 1.76L 66%, ratio 0.65)
Former smoker, 60 pack years
RLS
Primary hypertension
Plan
More confusion this AM, he notes he wishes to stop care
Now DNR, was not yet ready for hospice
Denies pain at this time.
Pain/sedation: PRN, add morphine PRN for pain/SOB
RASS goals: 0
Hemodynamically unstable, requiring pressors.
Requiring pressors: levophed at 2 mcgs, received >5L NSS --> changed to ayse overnight due to tachyarrhythmia
Cardiac history reviewed--HTN
No ECHO in past, will obtain new study--reviewed/preserved function
Hold home meds
Monitor on telemetry
Oxygen needs: increasing supplemental O2 requirements, not known to be on home O2 use--> now on HFNC
Prior history of lung disease: moderate COPD, last PFT reviewed; known met stage IV NSCLC
Resumed on home inhalers
Supplemental O2 as indicated to maintain sats > 89%
CXR/CT reviewed indicating NAD/stable lung tumor
Repeat CXR showing new RLL infiltrate, possible effusion
Chest US can be done to eval for thora
Diet advancement, poor PO intake
Diarrhea ongoing, maintain IVFs
GI eval
Human Capital Analyst recommendations
Aspiration precautions, HOB > 30 degrees
Speech therapy eval can be considered if at elevated risk
GI prophylaxis if indicated for mechanical ventilation >48 hours, prior history of GERD, stress ulcer formation in the critically ill
SUZI present, renal following
CRRT trial, patient could not tolerate complete therapy
No history of renal disease--induced by dehydration/chemotherapy/shock
Void trials
Follow urine output, critical I/Os
Replete electrolytes as needed
Fever and increased WBC on presentation, +C Diff colitis
Severe pancolitis on CT
ID following
Started on empiric antibiotics: CTX IV, vanco PO, FLG IV
Cultures sent/pending
Blood neg
Sputum + d[place]ota/during bronch bx 11/05/23, 01/18 sput neg
Urine + Kleb/GNB
Stool + C diff tox
Follow fever trend, WBC count
CBC reviewed, pancytopenic--worsening, plt drop to 7 despite transfusion
Onc following, likely induced by treatment
DVT prophylaxis as assessed based on risk, including mechanical SCDs
Can transfuse if indicated for Hb <7, plt < 10
Transfusions: s/p 1 unit plts, hold further
INR WNL
No prior h/o diabetes or thyroid disease
Monitor accuchecks PRN/SS coverage if needed
Prognosis very poor, discussed GOC with care team
Diagnostic Data
CXR 01/18/24- Right midlung opacity compatible with the patient's known lung cancer.
Abd US 01/21/24- IMPRESSION: Small volume abdominal ascites.
Abd CT 01/19/24- IMPRESSION:
1. Severe pancolitis most compatible with C. difficile colitis.
2. Geographic region of hypoattenuation in the left kidney suggestive of a renal infarct. Pyelonephritis is an alternative consideration.
3. Bilateral nephrolithiasis.
4. Urinary bladder calculi.
5. 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
6. Mild abdominal ascites.
7. Small bilateral pleural effusions.
8. Small pericardial effusion.
ECHO 01/22/24- Technically difficult but adequate for interpretation. Left ventricle is small in size. Mild concentric left ventricular hypertrophy. Normal regional wall motion. Normal left ventricular systolic function. Left ventricular ejection
fraction is 55-60%. No significant valvular disease. Trivial pericardial effusion. No prior study available for comparison.
-----
Critical Care time 35 mins -- The patient is admitted for acute critical illness for the treatment of vital organ failure and/or prevention of further life-threatening conditions. Total care includes time spent in review of history, physical exam,
medications, hemodynamic/ventilator parameters, laboratory data, imaging and discussion with house staff, pharmacy, respiratory therapy, mold loft worker, and nursing.
Subjective Dataa
Subjective Data
Date of Service:
Date of Service: January 23, 2024
Chief Complaint: Burrer Marker Axle Follow Up
Subjective:
SVT episode overnight, now on HFNC
CXR showing worsening infiltrate vs fluid
He notes that he does not wish to continue care
DNR
Objective Data
Data Reviewed
Vital Signs / I&O / Oxygen:
Vital Signs
Temp Pulse Resp BP Pulse Ox
98.0 F 112 28 104/62 94
01/23/24 03:09 01/23/24 06:16 01/23/24 06:16 01/23/24 06:16 01/23/24 06:16
Intake and Output
01/22/24 01/23/24 01/24/24
06:59 06:59 06:59
Intake Total 2190.1 / 2197.6 2546.0 / 2546.0
Output Total 200 / 200 225 / 225
Balance 1989. / 1996.6 2321.0 / 2321.0
SaO2 94
Nasal Cannula flow liters per 55
minute
Physical Exam
General: Respiratory Distress (mild, on HFNC), Poor Appetite and Other (thin/chronically ill appearing)
HEENT: Normocephalic and Anicteric
Cardiovascular: S1-S2 and Regular Rhythm
Respiratory: Crackles and Accessory Resp Muscle Use (mild)
GI: Soft, Non Distended and Non Tender
Neurology: Awake, Alert and Lethargic (confused, somewhat)
Skin: Warm and Dry
Labs/Micro/Reports
Lab Data
01/23/24 04:19
01/23/24 04:19
Laboratory Results
01/23/24
04:19
PT 19.7 H
INR 1.68
Microbiology
01/20/24 12:06 Urine Urine Culture - Preliminary
Klebsiella oxytoca
Gram negative bacilli
01/18/24 21:08 Blood/Venous Blood Culture - Preliminary
No Growth in 4 days- Final report to follow
01/19/24 12:56 Blood/Venous Blood Culture - Preliminary
No Growth in 72 hours- Final report to follow
01/19/24 17:22 Sputum Respiratory Culture - Final
01/19/24 17:22 Sputum Gram Stain - Final
[2024-01-23] MEDS: SOLU-CORTEF 50 MG IV (07:27)
[2024-01-23] MEDS: LIPITOR PO (07:29)
[2024-01-23] MEDS: FOLVITE PO (07:29)
[2024-01-23] MEDS: OCUVITE SOFTGEL PO (07:30)
[2024-01-23] MEDS: THERAGRAN PO (07:30)
[2024-01-23] MEDS: PROTONIX PO (07:30)
--- NOTE | 2024-01-23 07:47 | PTCARENOTE ---
Received pt AO to place, self and situation, unsure of date. Pt is requesting to be a DNR, stating ' I want 'do not resuscitate', to let me '. Ravinder is @ 60mcg/min, to maintain MAP >65. Pt on High Flow 50L 100%, sating 93-94%, RR 25-30. Pt asking
to be taken off High Flow so he can pass. Informed pt we need to discuss this w/ doctors so we can have appropriate orders in place and medications to manage his symptoms. Pt is drowsy, dozing intermittently, but easily arousable and at times
restless. Primary team notified about pt's wishes, will monitor closely. Pt offered emotional support. I asked if he wanted to call his at this time and he said no.
[2024-01-23] MEDS: ADVAIR HFA 230/21 MCG INHALER INH (08:02)
--- NOTE | 2024-01-23 08:46 | W.PN.ID1 ---
Addendum entered and electronically signed by Aliya Spence MD 01/23/24 11:11:
Notified by Dr Parkinson that patient will transition to palliative care - recommend stopping antibiotics.
ID service will no longer actively follow this patient please recall for further questions
Original Note:
Date of Service
Date of Service: January 23, 2024
Today's Communication
- add micafungin (enteric yeast coverage), add IV vancomycin (improve coverage for enterococcus)
- continue cefepime
- continue oral vancomycin and IV metronidazole
recommend hospice
Assessment / Plan
Severe C difficile Infection
Shock - hypovolemic, also possibly septic
Neutropenia - expected with his chemotherapy
UTI
Pancytopenia
Progressive SUZI
Transaminitis - likely shock liver
- remains on pressors, both identified enterics from urine would have been sensitive to ceftriaxone
- ANC remains <500 - with expected prolonged neutropenia per oncology
- CXR - reviewed with reading radiologist via tiger text - unable to comment on intestine - limited study
- AXR stat
- repeat blood cultures x2 today - follow
- 01/19 urine culture K oxytoca, E cloacae
- giardia/crypto and stool cultures were - not yet resulted
- add micafungin (enteric yeast coverage), add IV vancomycin (improve coverage for enterococcus)
- continue cefepime
- continue oral vancomycin and IV metronidazole
- hold probiotics while neutropenic - can restart when anc >1500
- appreciate oncology input
- remains critically ill, prognosis appears grim, recommend hospice
Chief Complaint
-: Clinical Sepsis and Other (C difficile, Neutropenia)
Subjective / Review of Systems
afebrile
weaned off from levophed to phenylephrine
remains tachycardic
ongoing leukopenia, progression of thrombocytopenia
ANC remains 0
K now 5.0
progression of transaminitis
CXR new dense opacification of the lwoer two thirds of right hemithroacx; I also note suspected developing megacolon - suspect we are not seeing gastric air bubble as there are minimal visible hasutra - radiology unable to comment on partial study,
I have ordered AXR
Vital Signs / Physical Exam
Vital Signs
Vital Signs
Temp Pulse Resp BP Pulse Ox
98.6 F 112 28 104/62 94
01/23/24 07:31 01/23/24 06:16 01/23/24 06:16 01/23/24 06:16 01/23/24 08:04
Physical Exam
Constitutional: Chronically Ill and Toxic
Cardiovascular: Regular Rate and S1/S2; Negative Murmur or Rub
Pulmonary: Coarse and Other (diminished in the RLL); Negative Symmetric, Wheezes or Rales
Gastrointestinal: Distended and Decreased Bowel Sounds
Skin: Dry; Negative Rash or Jaundice
Neurological: Negative Awake
Psychological: Calm
Objective Data
Lab Data
Lab Results
01/23/24 04:19
01/23/24 04:19
PT 19.7 Sec (11.4-14.6) H 01/23/24 04:19
INR 1.68 01/23/24 04:19
APTT 29.3 Sec (23.4-35.0) 01/18/24 21:08
Estimated Creat Clear 28 ml/min 01/23/24 04:19
Lactic Acid 1.3 mmol/L (0.7-2.0) 01/22/24 03:59
Total Bilirubin 0.7 mg/dl (0.2-1.3) 01/23/24 04:19
AST 321 U/L (17-59) H 01/23/24 04:19
ALT 147 U/L (0-50) H 01/23/24 04:19
Alkaline Phosphatase 151 U/L (38-126) H 01/23/24 04:19
Most recent labs reviewed.
Micro Results:
01/20/24 12:06 Urine Culture - Final
Urine Klebsiella oxytoca
Enterobacter cloacae
01/18/24 21:08 Blood Culture - Preliminary
Blood/Venous No Growth in 4 days- Final report to follow
01/19/24 12:56 Blood Culture - Preliminary
Blood/Venous No Growth in 72 hours- Final report to follow
01/19/24 17:22 Respiratory Culture - Final
Sputum Gram Stain - Final
01/18/24 16:55 C. difficile GDH Antigen & Toxins - Final
Feces/Stool Toxigenic C.difficile Positive
Care Review
Plan reviewed with: Physician (Dr Mcpherson - prognosis, hospice)
--- NOTE | 2024-01-23 09:03 | W.PN.NEPH.PH ---
Today's Communication / Plan
-
sign off
Assessment/Plan
-
Impression:
Presents with sepsis physiology (Ceftriaxone for Pyelonephritis, Vanco and Flagyl for C. Diff
Hyponatremia
Hyperkalemia
Non gapped Metabolic acidosis
Pancolitis with associated C. difficile
Metastatic lung cancer
Possible left renal infarct and/or pyelonephritis
Neutropenia
Large malignant left adrenal gland mass
SUZI
Plan:
Dialysis not to be performed
Patient for palliative care
-
-
Date of Service: January 23, 2024
CC / HPI / ROS
-
Chief Complaint:
SUZI
History of Present Illness:
neutropenic/pancytopenic
BP low, now on levophed
critically ill in ICU
Acidosis persists 17
SUZI/Cr up to 2.6
Review of Systems:
no CP
baseline SOB
diarrhea slowing
oliguric
Labs
-
Labs:
WBC 0.1 10^3/uL (4.8-10.8) L* 01/23/24 04:19
RBC 2.65 10^6/uL (4.70-6.10) L 01/23/24 04:19
Hgb 7.2 g/dL (13.0-18.0) L 01/23/24 04:19
Hct 20.3 % (39.0-52.0) L* 01/23/24 04:19
Plt Count 7 10^3/uL (130-400) L* D 01/23/24 04:19
Sodium 128 mmol/L (135-145) L 01/23/24 04:19
Potassium 5.0 mmol/L (3.5-5.1) 01/23/24 04:19
Chloride 97 mmol/L (98-107) L 01/23/24 04:19
Carbon Dioxide 22 mmol/L (22-30) 01/23/24 04:19
BUN 69 mg/dl (9-20) H 01/23/24 04:19
Creatinine 2.1 mg/dL (0.7-1.3) H 01/23/24 04:19
eGFR 32.02 01/23/24 04:19
Glucose 87 mg/dl (70-99) 01/23/24 04:19
Calcium 7.3 mg/dl (8.4-10.2) L 01/23/24 04:19
Phosphorus 7.2 mg/dl (2.5-4.5) H 01/21/24 21:42
Itl-L-Apcrthykhvx Pept 517 pg/ml 01/18/24 21:08
Albumin 2.0 g/dl (3.5-5.0) L 01/23/24 04:19
Physical Exam
-
Vital Signs:
Vital Signs
Temp Pulse Resp BP Pulse Ox
98.6 F 112 28 104/62 94
01/23/24 07:31 01/23/24 06:16 01/23/24 06:16 01/23/24 06:16 01/23/24 08:04
Cardiovascular:: Regular rate and rhythm
Respiratory:: Bilateral: Coarse
Lung Excursion:: Normal
Abdomen:: Nontender and Soft
Extremity Edema:: +1: Bilateral:
Redmond Catheter: Yes
--- NOTE | 2024-01-23 09:47 | CM ---
Addendum entered by Dank Brock 01/23/24 14:28:
CM communicated with outpatient Oncology SW Gurpreet, she brought pt's spouse. CM met with pt's spouse and she is requested comfort care. Pt's spouse stated she has a son from 1st marriage, she and the pt do not have children and per spouse she and the
pt have discussed in the past they at the end of their life they do not want to have any invasive treatment and they would prefer comfort. per spouse, because she had this conversation with the pt before she comfortably makes a decision for comfort
care. MD and RN are aware. Spiritual services and hospice registered nurse met with pt and his spouse. Emotional support offered and provided to pt and his spouse.
D/C plan: comfort care.
CM is available for emotional support.
Original Note:
CM following re: discharge planning.
Reviewed pt's chart, met with pt and spoke to pt's spouse Venus over the phone to update on discharge plan progress. Per chart review, pt remains critically ill, on 55 L HFNC with FIO2 100%., comfort care/hospice care recommended.
Hospice consult noted.
CM discussed hospice care/comfort care with the pt and his spouse. Pt presents with decreased judgment, limited insights. pt at some point stated he is OK with hospice care and from another point pt declined comfort care. CM discussed it with pt's
spouse and she stated she does not drive, she is trying to find someone top drive her here. CM explained to pt's spouse pt's current health condition, grid prognosis and pt's requested hospice care.
A referral to hospice made.
D/C plan: Hospice care with hospice.
CM will follow with discharge plan updates as hospitalization progresses.
--- NOTE | 2024-01-23 10:00 | PTCARENOTE ---
Pt refusing lab draws for blood cultures.
[2024-01-23 10:15] LABS: Fibrinogen 579 MG/DL (199-459)
[2024-01-23] MEDS: NEO-SYNEPHRINE 250 IV (11:09)
--- NOTE | 2024-01-23 11:10 | W.PN.ONC2 ---
Addendum entered and electronically signed by Inez Salter MD 01/23/24 12:07:
agree w/ A&P as outlined below
Plans for comfort measures noted
Addendum entered and electronically signed by PATRICIA Hawkins 01/23/24 12:04:
Discussed with primary service, pt pursing comfort focused care. No transfusion indicated.
Original Note:
Today's Communication / Plan
-
transfuse 1unit prbc and 1 SDP
neutropenic precautions
Impression
Impression
Severe pancytopenia due to chemotherapy
c-diff colitis/diarrhea
septic shock
SUZI
stage IV NSCLC - s/p 1 cycle carbo/alimta/keytruda - 7/3 w/ long-acting GCSF - 7/5 - [facility] ER; status post radiation therapy to the upper abdomen late December
Acute respiratory failure transferred to ICU on HF and pressors
Plan
Plan
1. C-diff colitis - diarrhea
-flagyl/ vanc as per ID
-IVF/ supportive care
2. Neutropenia/pancytopenia
-s/p chemotherapy
-received GCSF (Fulphilia- LA agent) - 7/5 - in ER, continue neutropenic precautions
-transfuse Hgb <7.5g/dL or as needed for sxs anemia
-transfuse platelets <20,000 or as needed for bleeding
3. NSCLC - s/p 1 cycle carbo/alimta/ keytruda
-cont folic acid
-f/u w/ Dr. Portillo as outpt for continued management
Subjective/Objective
Chief Complaint
poor historian
able to state name
critically ill in ICU, now requiring high flow and pressors
Subjective
denies pain
Vital Signs:
Vital Signs
Temp Pulse Resp BP Pulse Ox
98.6 F 105 28 78/44 94
01/23/24 07:31 01/23/24 10:45 01/23/24 10:45 01/23/24 10:45 01/23/24 10:00
Lab Results:
Laboratory Data
WBC 0.1 10^3/uL (4.8-10.8) L* 01/23/24 04:19
Hgb 7.2 g/dL (13.0-18.0) L 01/23/24 04:19
Plt Count 7 10^3/uL (130-400) L* D 01/23/24 04:19
PT 19.7 Sec (11.4-14.6) H 01/23/24 04:19
INR 1.68 01/23/24 04:19
APTT 29.3 Sec (23.4-35.0) 01/18/24 21:08
eGFR 32.02 01/23/24 04:19
Physical Exam
Cardiology: Normal Sinus Rhythm
Pulmonary: diminished
GI: Soft and Distended
Extremities: No Edema
Neuro: oriented to self, awake and alert
Review of Systems
Review of Systems
review of systems notable for subjective, otherwise negative
[2024-01-23] MEDS: MORPHINE SULFATE 1 MG IV (11:19)
--- NOTE | 2024-01-23 11:23 | PTCARENOTE ---
Pt continues to pull off High Flow, desating and becoming increasingly dyspneic and agitated. has been updated by and is trying to find a ride to the hospital. Pt is a DNR. Pt given 1mg IV Morphine at this time for increased shortness of
breath. Will continue to monitor.
--- NOTE | 2024-01-23 12:41 | W.PN.CARDCBS ---
Today's Communication / Plan
-
No further SVT. Remains on Ravinder-Synephrine. Rhythm is sinus tachycardia.
Continues to be markedly neutropenic with C. difficile colitis
Requiring high flow oxygen.
Family is considering comfort care/hospice
Impression / Plan
-
.
Impression:
Metastatic lung cancer with duodenal metastasis, s/p recent chemo in the last week / s/p radiation therapy with subsequent GI bleeding admit
Septic shock with hypotension requiring pressors
SVT with sinus tachycardia and PACs
C. difficile colitis with pancolitis
Pyelonephritis/UTI
Acute renal failure with hyperkalemia, now on urgent dialysis
Pancytopenia
Black stool
Confusion secondary to above
COPD, longtime smoker
Fam hx of premature CAD in his father
Currently full code
Echo January 22 2024: Technically difficult Left ventricle is small in size. Mild LVH EF is 55-60%. No significant valvular disease. Trivial pericardial effusion. No prior study available for comparison.
Plan:
No further SVT. Currently in sinus tachycardia with PACs heart rates 100-120s. .
Cont IV Ravinder-Synephrine
Recent echo reviewed showing preserved LV function.
Prognosis is very poor
Treatment of pancytopenia as per primary service and oncology.
Continue broad spectrum antibiotics for sepsis, C. difficile colitis
Discussed with nursing
Family considering comfort/hospice
Progress Note - Remelt Worker
Subjective
Date of Service: January 23, 2024
Patient resting in bed with no further SVT tentative plan appears to be for DNR and comfort
Objective
Labs:
01/23/24 04:19
01/23/24 04:19
Labs
Hgb 7.2 g/dL (13.0-18.0) L 01/23/24 04:19
Hct 20.3 % (39.0-52.0) L* 01/23/24 04:19
Plt Count 7 10^3/uL (130-400) L* D 01/23/24 04:19
PT 19.7 Sec (11.4-14.6) H 01/23/24 04:19
INR 1.68 01/23/24 04:19
APTT 29.3 Sec (23.4-35.0) 01/18/24 21:08
Sodium 128 mmol/L (135-145) L 01/23/24 04:19
Potassium 5.0 mmol/L (3.5-5.1) 01/23/24 04:19
BUN 69 mg/dl (9-20) H 01/23/24 04:19
Creatinine 2.1 mg/dL (0.7-1.3) H 01/23/24 04:19
Glucose 87 mg/dl (70-99) 01/23/24 04:19
Vital Signs and I&O:
Vital Signs
Temp Pulse Resp BP Pulse Ox
98.3 F 112 18 90/54 92
01/23/24 11:19 01/23/24 11:15 01/23/24 11:15 01/23/24 11:15 01/23/24 11:00
Vital Signs
Temp Pulse Resp BP Pulse Ox
98.3 F 112 18 90/54 92
01/23/24 11:19 01/23/24 11:15 01/23/24 11:15 01/23/24 11:15 01/23/24 11:00
Intake & Output
01/21/24 01/22/24 01/23/24 01/24/24
06:59 06:59 06:59 06:59
Intake Total 2014 2190.1 / 7.6 2546.0 / 2634.0 546 / 546
Output Total 450 / 450 200 / 200 225 / 225
Balance 1565 / 1565 1989. / 1996.6 2321.0 / 2409.0 546 / 546
Physical Exam
Physical Exam
GEN: No distress, awake, Ox3
HEENT: supple, anicteric, mmm
LUNGS: scatt rhonchi
CV: Reg, S1/S2, 1/6 syst LSB, no gallop
ABD: soft, BS+, NT/ND
EXT: No edema, soft limbs
NEURO: Gross non-focal
SKIN: No rash
[2024-01-23] MEDS: MORPHINE SULFATE 2 MG IV ×3 (13:29→14:13)
[2024-01-23] MEDS: MORPHINE 100 IV (13:40)
[2024-01-23] MEDS: ATIVAN 1 MG IV (13:51)
--- NOTE | 2024-01-23 13:59 | PTCARENOTE ---
is now at bedside, expressed wishes, in agreement w the pt, for comfort measures. Ravinder turned off. 2m IV morphine given for dyspnea. Morphine gtt initiated @ 1mg/hr vis R SQ Port. Once comfortable, High Flow removed. Fret Saw Operator called for
emotional support for pt's .
--- NOTE | 2024-01-23 14:14 | HOSPNOTE ---
Spoke with spouse about end of life and the philosophy. The patient was started on a morphine drip and appears comfortable at this time. I spoke with floor RN and she will continue giving IV pushes as needed per protocol. Will follow up tomorrow if
patient is still with us. Emotional support given.
--- NOTE | 2024-01-23 14:51 | W.PN.DEATH ---
Pronouncement of
-
Called to see patient to pronounce.
No spontaneous heart tones or respirations noted.
Patient not responsive to verbal stimuli.
Patient is pronounced .
Time of : 14:33
Date of : 01/23/24
Cause of : Septic shock, hypoxic respiratory failure
Family Notified: Yes
--- NOTE | 2024-01-23 15:03 | W.PN.HOSP.TC ---
Addendum entered and electronically signed by César Parkinson MD 01/25/24 08:03:
Add on to diagnosis list:
Acute hypoxic respiratory failure - patient required to be started on highflow o2 in the night of 01/22/24 .
Addendum entered and electronically signed by Jimmy Whitfield DO, Resident 01/25/24 07:09:
Patient had an acute episode of hypoxic respiratory failure overnight.
Addendum entered and electronically signed by César Parkinson MD 01/23/24 16:25:
I saw and evaluated the patient. I reviewed the resident�s note and agree with findings and plan as documented in the resident�s note.
Patient is somewhat disoriented in the morning. Oxygen requirement has increased overnight on high flow 40 L/min overnight
Case discussed with patient family and in light of worsening hypoxia and increasing pressor requirement hospice/comfort care was discussed
Patient family in agreement and after patient family visited patient was transition to comfort care
Discussed With life insurance underwriter/RN
Patient initiated on comfort care at 1300 and passed on comfort care at 1433
Patient spouse at bedside during the time

1. Shock - hypovolemic/Septic
-Patient got IV fluid over the last few days, 5 L plus in the last 3 days.
-Systolic blood pressure remains soft in 80s
-Question of possible adrenal insufficiency and on IV hydrocortisone 50mg q12h
-Patient is to be transferred to ICU due to increased vasopressor need.
-Patient developed new sinus tach/SVT and required vasopressors to be changed to ayse in evening today.
2. C diff colitis
-On oral vancomycin, ongoing diarrhea continue
-Abdominal x-ray ruled out any concern of megacolon
-ID/GI following help appreciated
3. UTI/pyelonephritis
-Urine culture growing Klebsiella oxytoca/gram-negative
-Maintained on IV cefepime.
4. SUZI
Urinary retention
Metabolic acidosis
-Having urine Redmond catheter at this time, continue monitoring output
-Maintain on IV fluid for last few days, unfortunately third spacing
-Continue to have worsening renal function.
-Nephrology decided for patient to be started on intermittent hemodialysis
5. Pancytopenia
-S/p G-CSF injection in ER for neutropenia
-Unfortunately patient developed new thrombocytopenia as well
-Getting heparin, hold further dosing until platelet count stabilized
-Thrombocytopenia possibly multifactorial at this point with ongoing C. difficile/chemotherapy/immunotherapy exposure versus HIT
-Oncology following and help appreciated
-Patient required 1 unit of platelet transfusion for catheter placement
6. Hyperkalemia
-Low potassium diet when able to take solid
-Suspected driven by renal failure
-off of valsartan
7. Black stool
Multifactorial anemia -possible blood loss/bone marrow suppression related
-discussed with GI, considering holding PPI with active cdiff
8. Sinus tachycardia versus SVT
-Patient was started on dialysis and heart rate in 150s
-Asymptomatic. Vasopressor requirement stable
-Cardiology consulted for further help
-Medical emergent cardioversion if develops shock
Patient spouse updated over the phone, 01/20 01/21.
I have discussed with spouse that patient condition has been deteriorating despite maximal medical treatment. Patient already having cardiac arrhythmia on on vasopressors, prognosis is poor at this point

Original Note:
Today's Communication/Plan
-
Patient unfortunately today 1432
Assessment / Plan
Assessment / Plan
#Hypovolemic shock/dehydration
-Patient had episode of decompensation overnight, required to be placed on 50 L 100% FiO2 high flow for respiratory support
-Patient made decision to be DNR/DNI this morning
-This decision was reinforced again by myself and the attending physician separately, his wishes are to be DNR/DNI
-Hospice was consulted to see the patient, it was decided to start him on comfort care
-All all non-comfort medications and interventions were stopped, after patient made the decision to proceed with comfort care only
-Patient peacefully with his at bedside time of 1432, flatwork washer and emotional support was provided for his
#Prerenal SUZI
-Creatinine on admission was 1.7 BUN was 73. Patient's baseline creatinine is 0.8, baseline BUN is 12
-Creatinine 2.1 today, worsening
-CRRT was initiated on patient as he is not a dialysis candidate due to his low blood pressures
-Patient refused CRRT today, and later decided to proceed with comfort care only
#C. difficiles
-Stool sample was collected and tested for C. difficile antigens
-Sample was positive for C. difficile antigens
-There is concern for potential fulminant C. difficile
-Patient started on oral vancomycin 500 mg every 6 hours, and 500 mg metronidazole IV per day total, currently day 4
-CT scan abdomen pelvis with oral contrast was negative for toxic megacolon.
-Abdominal ultrasound was ordered to evaluate for ascites
-Small volume ascites noted on ultrasound
-Medications discontinued due to comfort care measures
#Lymphopenia
-Patient's white blood cell count decreased from 11.1-0.1,
-ANC is 0.0 patient is neutropenic by definition.
-Neutropenic precautions initiated
-Received granulocyte stimulating factor in ED, effect not expected for few days at least
-Oncology following
#Urinary retention/oliguria
-Redmond catheter will be initiated
-Strict I's and O's recorded
-Urine studies have been ordered
-FENa was calculated at 0.5 indicative of prerenal etiology
-Strict weights to be recorded on patient
#Metabolic acidosis with respiratory compensation
-ABG was ordered which demonstrated a metabolic acidosis with respiratory concentration
-Patient was started on continuous sodium bicarbonate at 100 mL/h IV
-Discontinued due to comfort care
#thrombocytopenia
-platelets decreased to 22
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
- status post 1 unit of platelets transfused 01/22/2024
-Patient was offered another transfusion this morning but he decided that he did not want this transfusion, wishes were respected
#Anemia
-Patient previously admitted for GI bleed, secondary to metastatic duodenal lesion, and gastric ulcers
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
-Hemoglobin is downtrending at 7.2 was 10.7 on admission
-Medication discontinued due to comfort care
#Hyperkalemia
-Potassium was 5.6 on admission
-Potassium 5.5 today
-Patient was started on calcium gluconate, insulin plus dextrose, as needed for hyperkalemia
-Likely secondary to SUZI, metabolic acidosis and reduced filtration
-Interventions discontinued due to comfort care
#COPD
-Patient does not endorse shortness of breath or difficulty breathing at this time
-Patient takes 1 puff fluticasone PropionSalmeterol BIDPRN for shortness of breath, and guaifenesin
-Medication discontinued due to comfort care
#Foot drop
-Patient endorses spontaneous foot drop developing on the right foot only 3 weeks ago
-Etiology unknown
#Hyperlipidemia
-Medication discontinued due to comfort care
#Hypertension
-Medication discontinued due to comfort care.
Clear liquid diet
DNR/DNI
Data:
01/21/2024 renal artery duplex:
IMPRESSION: Right renal artery velocities mild to moderately elevated diffusely throughout. However the renal to aortic velocity ratio is consistent with less than 60% stenosis. Elevated resistive indices in the right kidney may be consistent with
intraparenchymal disease. Left renal artery and left kidney not well visualized and cannot be well assessed on this ultrasound secondary to large mass seen in the vicinity (recent CT scan demonstrates adrenal mass).
01/21/2024 abdominal ultrasound:
IMPRESSION:
Small volume abdominal ascites.
Anticipated Discharge: Today
Subjective/Interval History
-
Date of Service: January 23, 2024
Patient unfortunately today patient
Objective Data
-
Labs:
Laboratory Results
01/23/24
04:19
WBC 0.1 L*
Hgb 7.2 L
Hct 20.3 L*
Plt Count 7 L* D
PT 19.7 H
INR 1.68
Sodium 128 L
Potassium 5.0
Chloride 97 L
Carbon Dioxide 22
BUN 69 H
Creatinine 2.1 H
Glucose 87
Calcium 7.3 L
Total Bilirubin 0.7
AST 321 H
ALT 147 H
Alkaline Phosphatase 151 H
Vital Signs:
Vital Signs
Temp Pulse Resp BP Pulse Ox
98.3 F 112 18 90/54 92
01/23/24 11:19 01/23/24 11:15 01/23/24 11:15 01/23/24 11:15 01/23/24 11:00
I&O
01/22/24 01/23/24 01/24/24
06:59 06:59 06:59
Intake Total 2190.1 / 2197.6 2546.0 / 2634.0 546 / 546
Output Total 200 / 200 225 / 225
Balance / 1996.6 2321.0 / 2409.0 536 / 536
Review of Systems
-
History Source: Patient
Constitutional: Reports No Symptoms
Respiratory: Reports No Symptoms
Cardiac: Reports No Symptoms
Abdomen/GI: Reports Diarrhea; Denies Abdominal Pain, Nausea or Vomiting
Genitourinary: Reports No Symptoms
Skin: Reports No Symptoms
Physical Exam
-
General: Comfortable, Respiratory Distress and Appears Chronically Ill
Respiratory: Clear to Auscultation
Cardiac: Regular Rhythm and S1/S2
GI: Soft, Nontender, Nondistended and Normal Bowel Sounds
Skin: Warm and Dry
Neuro: Awake, Alert, Oriented and AO x 3
Psych: Calm and Intact Judgement/Insight
Data Reviewed
-
Labs: Labs Reviewed by me and Discussed with Physician
--- NOTE | 2024-01-23 15:28 | W.DCSUMMARY ---
Addendum entered and electronically signed by César Parkinson MD 01/26/24 07:46:
Read, reviewed, and agree. See same day progress note for additional details. Time spent coordinating care, DC planning, review of DC plan of care with resident, transition of care, review of records in EMR, med rec, consults, notes, d/w
consultants, nursing, family, and CM 40 mins
Original Note:
Documented by User: Jimmy Whitfield DO, Resident 01/23/24 16:25
Discharge Summary
Discharge Data
Date of Admission: 01/18/24
Date of Discharge: 01/23/24
-
Pending Results: No
Hospital Course
Discharging Physician : Iggy Whitfield
Disposition : Patient
Primary care physician : Dr Brian White
Principal Discharge diagnosis : Hypovolemic shock/septic shock
Chronic Discharge diagnosis : Prerenal SUZI, hyponatremia, lymphopenia, thrombocytopenia, stage IV non-small cell lung carcinoma, adrenal metastases, duodenal metastases, metabolic acidosis with respiratory compensation, urinary retention, oliguria,
COPD, hyperkalemia, foot drop, hyperlipidemia, hypertension
Hospital Course : 78-year-old male with a past medical history of stage IV non-small cell lung cancer status post 1 cycle of chemotherapy presents to the emergency department with frequent watery nonbloody and excessive diarrhea. He says the
started about 1 day after receiving his first cycle of chemotherapy. C. difficile antigen in emergency department was positive patient was determined to have severe C. difficile colitis. CT scan was consistent with severe C. difficile pancolitis.
Patient was started on high-dose oral vancomycin and IV metronidazole. Soon after his admission patient's white blood cell count plummeted overnight from 11.1-0.7 then subsequently dropped to 0.1 ANC was 0.0 patient neutropenic by definition.
During his stay infectious disease and medical oncology were both consulted and provided recommendations. Patient continued to decompensate despite aggressive resuscitation efforts. He had multiple episodes of hypotension eventually he was started
on pressors these were started and discontinued multiple times. First norepinephrine and then later subsequently phenylephedrine once patient's heart rate was too high. Cardiology was consulted it was found that he has an SVT. Recommendations
were made by cardiology. A trial of CRRT was started, patient received 1 treatment and had subsequently decided he did not want any more. His platelets plummeted to 7 status post 1 transfusion of platelets patient was offered second transfusion
and he decided he did not want any more. Patient was started on high flow 50 L 100% FiO2 oxygen therapy. Discussion was opened up with patient regarding his CODE STATUS it was eventually decided that he would be DNR/DNI after discussion with the
primary team and his . Hospice was consulted and patient was started on comfort care, all non-comfort medications were discontinued. Unfortunately patient today time of 1433, 01/23/2024 he went peacefully with his at bedside.
[employer] Operator emotional support was provided for .
Important imaging findings : 01/19/2024 CT abdomen pelvis, findings:
CHEST: Small bilateral pleural effusions. Small pericardial effusion.
ABDOMEN:
Scattered hepatic cysts and too small to accurately characterize liver lesions. Surgically absent gallbladder. The bile ducts, pancreas, spleen, and right adrenal gland are unremarkable. Redemonstration of a large left adrenal gland malignant mass
measuring 11.4 cm. This previously measured 10.5 cm. Small bilateral nephrolithiasis. Geographic hypoattenuation at the anterolateral mid to upper pole of the left kidney suggesting a renal infarct versus pyelonephritis. No hydronephrosis.
The abdominal aorta is normal in caliber. Severe aortobiiliac calcified atherosclerosis.
Diffuse severe wall thickening of the entire colon with pericolonic inflammatory fat stranding and mucosal hyperenhancement compatible with a pancolitis. Mild abdominal ascites and mesenteric edema. No bowel obstruction. No extraluminal free air or
fluid collection.
PELVIS: Collapsed urinary bladder with a Redmond catheter in place. Multiple calculi in the urinary bladder lumen. The prostate gland is mildly enlarged.
SKELETON: No suspicious osseous lesion.
Procedure findings : No procedures performed
Discharge Plan
-
Patient Disposition:
Date/Time
Date/Time: 01/23/24 14:33
Discharge Date and Time
Discharge Date/Time: 01/23/24 14:33
Print Language: [place]

Documented by User: César Parkinson MD 01/26/24 07:46
Discharge Summary
Discharge Data
Date of Admission: 01/18/24
Date of Discharge: 01/23/24
Hospital Course
Discharging Physician : Iggy Whitfield
Disposition : Patient
Primary care physician : Dr Brian White
Principal Discharge diagnosis : Hypovolemic shock/septic shock
Chronic Discharge diagnosis : Prerenal SUZI, hyponatremia, lymphopenia, thrombocytopenia, stage IV non-small cell lung carcinoma, adrenal metastases, duodenal metastases, metabolic acidosis with respiratory compensation, urinary retention, oliguria,
COPD, hyperkalemia, foot drop, hyperlipidemia, hypertension
Hospital Course : 78-year-old male with a past medical history of stage IV non-small cell lung cancer status post 1 cycle of chemotherapy presents to the emergency department with frequent watery nonbloody and excessive diarrhea. He says the
started about 1 day after receiving his first cycle of chemotherapy. C. difficile antigen in emergency department was positive patient was determined to have severe C. difficile colitis. CT scan was consistent with severe C. difficile pancolitis.
Patient was started on high-dose oral vancomycin and IV metronidazole. Soon after his admission patient's white blood cell count plummeted overnight from 11.1-0.7 then subsequently dropped to 0.1 , ANC was 0.0 patient neutropenic by definition.
During his stay infectious disease and medical oncology were both consulted and provided recommendations. Patient continued to decompensate despite aggressive resuscitation efforts. He had multiple episodes of hypotension eventually he was started
on pressors these were started and discontinued multiple times. First norepinephrine and then later subsequently phenylephedrine once patient's heart rate was too high. Cardiology was consulted it was found that he has an SVT. Recommendations
were made by cardiology. A trial of CRRT was started, patient received 1 treatment and had subsequently decided he did not want any more. His platelets plummeted to 7 status post 1 transfusion of platelets, patient was offered second transfusion
and he decided he did not want any more. Patient was started on high flow 50 L 100% FiO2 oxygen therapy. Discussion was opened up with patient regarding his CODE STATUS it was eventually decided that he would be DNR/DNI after discussion with the
primary team and his . Hospice was consulted and patient was started on comfort care, all non-comfort medications were discontinued. Unfortunately patient today time of 1433, 01/23/2024 he went peacefully with his at bedside.
[employer] Operator emotional support was provided for .
Important imaging findings : 01/19/2024 CT abdomen pelvis, findings:
CHEST: Small bilateral pleural effusions. Small pericardial effusion.
ABDOMEN:
Scattered hepatic cysts and too small to accurately characterize liver lesions. Surgically absent gallbladder. The bile ducts, pancreas, spleen, and right adrenal gland are unremarkable. Redemonstration of a large left adrenal gland malignant mass
measuring 11.4 cm. This previously measured 10.5 cm. Small bilateral nephrolithiasis. Geographic hypoattenuation at the anterolateral mid to upper pole of the left kidney suggesting a renal infarct versus pyelonephritis. No hydronephrosis.
The abdominal aorta is normal in caliber. Severe aortobiiliac calcified atherosclerosis.
Diffuse severe wall thickening of the entire colon with pericolonic inflammatory fat stranding and mucosal hyperenhancement compatible with a pancolitis. Mild abdominal ascites and mesenteric edema. No bowel obstruction. No extraluminal free air or
fluid collection.
PELVIS: Collapsed urinary bladder with a Redmond catheter in place. Multiple calculi in the urinary bladder lumen. The prostate gland is mildly enlarged.
SKELETON: No suspicious osseous lesion.
Procedure findings : No procedures performed
Discharge Plan
-
Patient Disposition:
Date/Time
Date/Time: 01/23/24 14:33
Discharge Date and Time
Discharge Date/Time: 01/23/24 14:33
Print Language: S[place]
--- NOTE | 2024-01-23 15:37 | CHAP ---
Emotional and spiritual support provided for Krzysztof and his Shikha Herrera at bedside before and after his . Prayer blanket provided.
--- NOTE | 2024-01-23 16:27 | PTCARENOTE ---
7905 pt . called to pronounce. Emotional support provided to . [facility] of life called, post mortem care preformed.
--- NOTE | 2024-01-24 08:24 | PN.CDI ---
CDI
- -
CDI:
Physician Documentation Request
Admit Date: 01/18/24 16:14
Dear Doctor Roseann,
01/21 cardiology consultation includes a diagnosis of confusion.
01/22 Roof Designer note states 'more confusion this A.M'
01/22 nursing notes state ' Patient confused and restless, continuously taking off HFNC, desaturating to the 70s. Mitts applied
Could you please clarify the most likely etiology of the confusion/altered mental status.
Encephalopathy - indicate type, such as metabolic, toxic, septic, alcoholic, anoxic, hypertensive etc. due to a specific condition such as UTI, CVA, hyponatremia etc.
Acute Delirium - indicate known or suspected etiology such as postoperative, due to opioids or other drugs etc. Can also indicate unknown or mixed etiologies.
Acute or subacute confusional state due to ____ (specify known or suspected etiology)
Other
Use of terms such as suspected, likely, concern for, or probable (associated with a specific diagnosis that is being evaluated, monitored, or treated as if it exists) are acceptable and can be coded in the inpatient setting, when documented at the
time of discharge.
Thank you,
Suzy Ospina RN, BSN
CDI Specialist
tiger text
Please use your independent medical judgment in providing your response.
--- NOTE | 2024-01-24 08:31 | PN.CDI ---
CDI
- -
CDI:
Physician Documentation Request
Admit Date: 01/18/24 16:14
Dear Doctor Roseann,
Patient is admitted with sepsis/shock.
01/22 hospitalist progress note states 'Patient had episode of decompensation overnight, required to be placed on 50 L 100% FiO2 high flow for respiratory support'
summary cause of includes 'hypoxic respiratory failure'
Please clarify which of the following accurately represents the acuity of the respiratory failure:
____ Acute
____ Other
Use of terms such as suspected, likely, concern for, or probable (associated with a specific diagnosis that is being evaluated, monitored, or treated as if it exists) are acceptable and can be coded in the inpatient setting, when documented at the
time of discharge.
Thank you,
Suzy Ospina RN, BSN
CDI Specialist
tiger text
Please use your independent medical judgment in providing your response.
--- NOTE | 2024-01-24 18:01 | W.PN.UPDATE ---
Update Note
Progress Note Update
Acute anoxic encephalopathy
Patient was seen and evaluated on a.m. of 01/23/2024 and appeared to be more confused and disoriented. This is most likely due to acute hypoxic encephalopathy given his increased oxygen requirements.
[2024-01-24 21:30] LABS: Adrenocorticotropic Hormone 9.5 pg/mL (7.2-63.3)
== END 2024-01-23 14:33 | disposition expired | DRG 871 ==
LOC: ICU 16:14
PROVIDERS: Nurse Practitioner Family; Nurse Practitioner Primary Care; Physician Assistant; Radiology Vascular & Interventional Radiology; Specialist; Student in an Organized Health Care Education/Training Program; ADMITTING PHYSICIAN Family Medicine; ATTENDING PHYSICIAN Hospitalist; EMERGENCY PHYSICIAN Emergency Medicine; FAMILY PHYSICIAN Family Medicine; OTHER PHYSICIAN Internal Medicine; OTHER PHYSICIAN Internal Medicine Gastroenterology; OTHER PHYSICIAN Internal Medicine Hematology & Oncology; OTHER PHYSICIAN Specialist; OTHER PHYSICIAN Student in an Organized Health Care Education/Training Program
PROC: 5A1D70Z Performance of Urinary Filtration, Intermittent, Less than 6 Hours Per Day (ICD-10-PCS; 2024-01-22)
PROC: 02HV33Z Insertion of Infusion Device into Superior Vena Cava, Percutaneous Approach (ICD-10-PCS; 2024-01-22)
PROC: 30233R1 Transfusion of Nonautologous Platelets into Peripheral Vein, Percutaneous Approach (ICD-10-PCS; 2024-01-22)
PROC: 5A0935A Assistance with Respiratory Ventilation, Less than 24 Consecutive Hours, High Flow/Velocity Cannula (ICD-10-PCS; 2024-01-22)
DX: A41.9 Sepsis, unspecified organism (principal); D61.810 Antineoplastic chemotherapy induced pancytopenia; J96.01 Acute respiratory failure with hypoxia; K25.4 Chronic or unspecified gastric ulcer with hemorrhage; K26.4 Chronic or unspecified duodenal ulcer with hemorrhage; R65.21 Severe sepsis with septic shock; K72.00 Acute and subacute hepatic failure without coma; N17.9 Acute kidney failure, unspecified; C34.2 Malignant neoplasm of middle lobe, bronchus or lung; C78.4 Secondary malignant neoplasm of small intestine; C79.72 Secondary malignant neoplasm of left adrenal gland; E87.20 Acidosis, unspecified; A04.72 Enterocolitis due to Clostridium difficile, not specified as recurrent; N12 Tubulo-interstitial nephritis, not specified as acute or chronic; R18.8 Other ascites; E27.40 Unspecified adrenocortical insufficiency; N28.0 Ischemia and infarction of kidney; E22.2 Syndrome of inappropriate secretion of antidiuretic hormone; G93.49 Other encephalopathy; I47.10 Supraventricular tachycardia, unspecified; D62 Acute posthemorrhagic anemia; Z66 Do not resuscitate; T45.1X5A Adverse effect of antineoplastic and immunosuppressive drugs, initial encounter; E86.0 Dehydration; E78.00 Pure hypercholesterolemia, unspecified; J44.9 Chronic obstructive pulmonary disease, unspecified; R57.1 Hypovolemic shock; E87.5 Hyperkalemia; I10 Essential (primary) hypertension; K21.9 Gastro-esophageal reflux disease without esophagitis; D72.810 Lymphocytopenia; M21.371 Foot drop, right foot; B96.89 Other specified bacterial agents as the cause of diseases classified elsewhere; Z79.899 Other long term (current) drug therapy; Z92.3 Personal history of irradiation; Z51.5 Encounter for palliative care; Z87.891 Personal history of nicotine dependence
CPT/HCPCS: 36556; 36600; 71045; 71046; 74018; 74177; 76705; 76937; 77001; 80048; 80053; 81003; 81015; 82024; 82330; 82533; 82570; 82607; 82805; 82962; 83605; 83735; 83880; 83930; 83935; 84100; 84300; 84436; 84443; 85025; 85384; 85610; 85730; 86704; 86706; 86803; 86850; 86900; 86901; 87040; 87070; 87077; 87086; 87186; 87205; 87324; 87340; 87449; 93005; 93306; 93975; 94640; 96360; 96361; 96372; 99285; C1752; G0257; J7030; P9045; P9047; P9073; Q5122; Q9967